=== PATIENT | female | born 1980 | race Caucasian/White ===

== ENCOUNTER 2018-08-08 18:50 | Inpatient (IN) | payer OTHER, SELFPAY ==
[2018-08-08] VITALS (10 sets, daily range): BP systolic 107–139; BP diastolic 59–77; PULSE 56–71; RESP 10–18; TEMP 36.2–37.1; O2SAT 96–99; BMI 25.2
[2018-08-08] MEDS: Lactated Ringers 1,000 ML 100 ML IV ×2 (17:54→22:10)
--- OUTSIDE RECORDS SUMMARY | 2018-08-08 18:12 | XMS RPT_ITS ---
:1980 Author Organization OHIP Care Team Providers Name Role Phone SUJATHA TELLEZ Attending Unavailable ROSALINDA SUJATHA Nori Attending Unavailable ROSALINDA, SUJATHA L Referring Unavailable LEEANNA SMALL A Attending Unavailable ROSALINDA, SUJATHA L Referring Unavailable ROSALINDA, SUJATHA L Attending Unavailable ROSALINDA, SUJATHA L Referring Unavailable LISA DAVIS Attending Unavailable ROSALINDA, SUJATHA L Referring Unavailable ROSALINDA, SUJATHA L Attending Unavailable ROSALINDA, SUJATHA L Referring Unavailable ANTONY SMALLZIZ A Attending Unavailable ROSALINDA, SUJATHA L Referring Unavailable ROSALINDA, SUJATHA L Attending Unavailable ROSALINDA, SUJATHA L Referring Unavailable ROSALINDA, SUJATHA L Attending Unavailable ROSALINDA, SUJATHA L Referring Unavailable ROSALINDA, SUJATHA L Referring Unavailable KSENIA SPARKS (VIBRATING SCREEN OPERATOR) Referring Unavailable ROSALINDA, SUJATHA L Attending Unavailable ROSALINDA, SUJATHA L Referring Unavailable GEOVANNY, LEEANNA A Attending Unavailable ROSALINDA, SUJATHA L Referring Unavailable ROSALINDA, SUJATHA L Attending Unavailable ROSALINDA, SUJATHA L Referring Unavailable ROSALINDA, SUJATHA L Attending Unavailable ROSALINDA, SUJATHA L Referring Unavailable ROSALINDA, SUJATHA L Referring Unavailable ROSALINDA, SUJATHA L Attending Unavailable ROSALINDA, SUJATHA L Referring Unavailable LEEANNA SMALL Attending Unavailable ROSALINDA, SUJATHA L Referring Unavailable ROSALINDA, SUJATHA L Attending Unavailable ROSALINDA, SUJATHA L Referring Unavailable ROSALINDA, SUJATHA L Attending Unavailable ROSALINDA, SUJATHA L Referring Unavailable ROSALINDA, SUJATHA L Attending Unavailable ROSALINDA, SUJATHA L Referring Unavailable ROSALINDA, SUJATHA L Attending Unavailable ROSALINDA, SUJATHA L Referring Unavailable Canelo, Sultana Attending Unavailable Wisfernando, Sultana Referring Unavailable Love, Hoda Primary Care Unavailable Rosalinda, Sujatha Admitting Unavailable Rosalinda, Sujatha Attending Unavailable Love, Hoda Primary Care Unavailable Love, Hoda Primary Care Unavailable Thelma Thomas Attending Unavailable PROBLEMS PROBLEMS DATE TYPE CONDITION / CODE ATTENDING STATUS SOURCE 07/05/2018 Active 33 weeks gestation NA Active [facility] [place] Z3A.33(ICD-10) Repository 07/05/2018 Active Supervision of NA Active [facility] elderly [facility] [place] multigravida, Repository third trimester / O09.523(ICD-10) 07/05/2018 Active Supervision of NA Active [facility] high risk [facility] [place] , Repository unspecified, third trimester / O09.93(ICD-10) 05/29/2018 Active Abnormal glucose NA Active [facility] [place] [facility] O99.810(ICD-10) 05/19/2018 Active 27 weeks gestation NA Active [facility] [place] Z3A.27(ICD-10) Repository 01/30/2018 Active Unknown / ROSALINDA [facility] UNK(Unknown) SUJATHA L [facility] [place] Repository PROCEDURES PROCEDURES No Procedure Records FoundRESULTS RESULTS CBC W/DIFF, AUTOMATED Collected: 08/08/2018 Status: F Source: [place] 3:45 PM [facility] REPOSITORY TYPE CODE TESTS RESULT OUT OF RANGE REFERENCE UNITS LAB L100.1000 Normal 4.4-11.0 K/mm3 WBC 8.1 LAB L100.1200 Low 4.2-5.4 M/mm3 RBC 3.79 LAB L100.1300 Normal 12.0-15.0 g/dl HGB 12.2 LAB L100.1400 Low 37-47 % HCT 36.6 LAB L100.1500 Normal 81-99 fL MCV 96.6 LAB L100.1600 High 27.0-32.0 pg MCH 32.2 LAB L100.1700 Normal 32-36 g/gl MCHC 33.3 LAB L100.1810 High 11.6-14.6 % RDW 16.3 CV LAB L100.1820 High 35.1-43.9 fl RDW 55.0 SD LAB L100.1900 Normal 150-450 K/mm3 PLT 219 LAB L100.2000 Normal 6.2-12.0 fl MPV 11.5 LAB L100.2100 Normal 47-70 % NEUT% 59.7 LAB L100.2200 Normal 19-41 % LY% 30.1 LAB L100.2300 Normal 0-10 % MONO% 8.7 LAB L100.2400 Normal 0-5 % EO% 0.6 LAB L100.2500 Normal 0-1 % BASO% 0.4 LAB L100.2550 Normal 0.0-0.9 % IM 0.500 GRAN % Result Comment: IG% - Immature Granulocytes (promyelocytes, myelocytes and metamyelocytes) > 1% indicates that a LEFT SHIFT is Present. LAB L100.2620 Normal 2.0-7.7 X10 3/uL Absolute Neut 4.8 LAB L100.2720 Normal 0.83-4.51 X10 3/ul Absolute Lymph 2.42 Performed By: #### L100.0100, B101.7450 #### [facility] [address] [place], [address] TYPE AND SCREEN Collected: 08/08/2018 Status: F Source: [place] 3:45 PM [facility] REPOSITORY Order Comment: Reason for Type AND Screen/Red Cells: SURGERY TYPE CODE TESTS RESULT OUT OF RANGE REFERENCE UNITS LAB B10.0800 Normal BLOOD O TYPE GEL POSITIVE LAB B100.4000 Normal Antibody NEGATIVE Screen Performed By: #### L100.0100, B101.7450 #### [facility] [address] [place], [place], [id number] HISTORY PHYSICAL Observed: 08/08/2018 Status: COMPLETED Source: [place] 1:50 PM [facility] REPOSITORY HNO ID: [id number]: Sujatha Bermeo: (none)Author Type: PhysicianType: HANDPFiled: 08/08/2018 2:15 PMNote Text:Pre-Op History and PhysicalHPI: The patient is a 37 year old female presenting for pre-operativevisit.She is scheduled for , on 08/10/18. Procedure discussed alongwith risks, benefits and complications. Otheralternatives discussed for management. Consent form signed? Yes.PAST MEDICAL HISTORYDiagnosis Date- abnormal pap 2008 Repeat normal- Abnormal Pap smear of cervix- anxiety- Genetic testing 05/19/2015 Neg screen for CF, fragile X adn SMAPAST SURGICAL HISTORYProcedure Laterality Date- ANESTH, SECTION- DELIVERY ONLY 08/14/2011 , low transverse, note from Dr. Lima reviewed, confirms LTCS- EGD N/A 10/27/2016 [facility]- [place]OSCOPY ([place])- PAST SURGICAL HISTORY OF miscarriages x 2- REMOVAL ADENOIDS,PRIMARY,<12 Y/O Adenoidectomy- REMOVAL OF TONSILS,<12 Y/O 1991 TonsillectomyCurrent Outpatient Prescriptions:ferrous sulfate (IRON ORAL) Take by mouth. Disp: Rfl: multivitamin (CLASSIC ) 28 mg iron- 800 mcg tab(s) Take 1tablet by mouth. Disp: Rfl:aspirin 81 mg chewable tablet Take 81 mg by mouth once daily. 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[employer]*Social History Main Topics Smoking status: Never Smoker Smokeless tobacco: Never Used Alcohol use: No Drug use: No Sexual activity: Yes Partners with: Male control/protection: Condom Comment: singleFAMILY HISTORY:FAMILY HISTORYProblem Relation Age of Onset- Thyroid Mother- other (kidney cancer) Father- Heart Maternal Grandmother- Asthma Maternal Grandmother- Heart Maternal Grandfather- Diabetes Paternal Grandfather- Breast Cancer Paternal Aunt- Thyroid Sister- Diabetes Sister- Thyroid Sister- Thyroid Maternal Aunt- Thyroid Maternal Aunt- Thyroid Maternal Aunt- Thyroid Maternal Aunt- Thyroid Maternal AuntREVIEW OF SYMPTOMS:GENERAL: denies fevers or chillsENDOCRINOLOGY: has not been on steroidsCardiology : denies palpitations or chest painRespiratory: denies SOB or coughHematology: denies history of prolonged bleeding or easy bruising or VTEAllergy: Denies history of personal or family history of allergy toanesthesiaPHYSICAL EXAMINATION:VITALS: Last menstrual period 11/10/2017.GENERAL: The patient is well nourished, well hydrated in no acutedistress. , The patient is oriented to time, place, and person.NECK: Supple. No lynphadenopathy, normal thyroid, no thyromegaly.LUNGS: Clear to auscultation bilaterally. no wheezes, rhonchi or ralesHEART: Regular rate and rhythm, Normal heart sounds and No murmurs orgallopsabd- soft, nontender, gravidIMPRESSION: 39 week ,previous c/sadvanced maternal age multigravidaPLAN: The risks/benefits/alternatives and personal involved for theplanned were reviewed with the patient. Her questions wereanswered to her satisfaction and she desires to proceed. Consent wassigned. I reviewed with her postop instructions and expectations.I have reviewed and updated past medical and surgical history, medicationsand allergiesSujatha Tellez M.D. PROGRESS Observed: 07/19/2018 Status: COMPLETED Source: [place] 9:52 AM [facility] REPOSITORY [facility] ID: [id number]: Leeanna Llaneservice: (none)Author Type: PhysicianType: Progress NotesFiled: 07/19/2018 10:01 AMNote Text:A ha intrauterine pregnancyThe size is LGA > 97 th%. The AC measures > 95 th. She had anegative 3 hour OGTTEstimated Date of Delivery: 08/17/18EGA = [id number] anatomy appears normal in the areas visualized.The amniotic fluid volume is normal.There is no evidence of effusions and/ or hydrops.The placenta is fundalEvaluation of the cervix:Evaluation of the cervix has been performed by transvaginal ultrasoundsecondary to PTD at 29 weeks. The cervix measure 33.5 mm. No dynamicchanges have been visualized.No sludge is noted near the cervix.The previously noted cyst is still visualized without significant changein its size as compared to the last scan. It is located on the right sideof the cervix. It measures 37 mm x 21 mm x 33 mm.RECOMMENDATIONS:- Self-assessment of kick counts- Follow up ultrasound as clinically indicated PROGRESS Observed: 07/18/2018 Status: COMPLETED Source: [place] 4:36 PM [facility] REPOSITORY HNO ID: [id number]: Myranda Hinton MaService: (none)Author Type: (none)Type: Progress NotesFiled: 07/20/2018 9:55 AMNote Text:37 year old female here for INACTIVATED INFLUENZA VACCINE.6811-3241 SeasonPatient is identified by name and date of : Yes [] CONTRAINDICATIONS colorenhanced sectionAge less than 6 months? NoAllergy to eggs, chicken, chicken feathers, or chicken dander? NoAllergy to thimerosal (a preservative) or formaldehyde, gelatin? NoHistory of severe reaction to any vaccine component or a previous dose ofinfluenza vaccination? NoHistory of Guillain-[place] Syndrome within 6 weeks after a previousinfluenza vaccine? NoPatient is not moderately or severely ill? NoCurrent temperature greater or equal to 100.4F? NoHistory of Bone Marrow Transplant prior 6 months or solid organ transplantin the past 3 months ? NoHistory of fainting after a prior injection or medical procedure? No-? If patient has fainted in the past, the CDC recommends sitting or lyingdown for 15 minutes after the vaccination. [] VERIFICATIONcolor enhanced sectionWas the answer Yes for any of the above contraindications? Nocontraindications present. Acceptable to proceed with vaccine.Patient/guardian agrees the above answers are true to the best of theirknowledge? YesFlu vaccine information sheet given? YesSee immunization activity in [facility] for details of immunizationsadminstered today.Patient age: [age] year old For The 0438-6622 Flu Season6-35 months old: Fluzone 0.25 ml - IM (Preservative Free)3 years of age: Fluzone 0.5 ml - IM (Preservative Free)3 years and older: Fluzone 0.5 ml- IM-(with Preservatives)65+ years old:2-49 years old Fluzone High-Dose 0.5 ml - IM (Preservative Free)FLUMIST- intranasalREMEMBER: If patient is less than 9 years of age and this is the firstvaccine of Influenza to be received in any flu season, they should receivea second dose in one months time. GC/CHLAMYDIA AMPLIF Collected: 07/18/2018 Status: F Source: [place] 4:30 PM [facility] REPOSITORY TYPE CODE TESTS RESULT OUT OF REFERENCE UNITS RANGE LAB GCCTSR GC/Chlam Amp Urine Source LAB GCAMPL GC Amplification Negative for Neisseria gonorrhoeae by amplification. LAB CLAMPL Chlamydia Amplif Negative for Chlamydia trachomatis by amplification. Result Comment: For screening asymptomatic women, a vaginal swab specimen (APTIMA vaginal swab 797014) is optimal. Ur ine specimens have reduced sensitivity for Chlamydia trachomatis or Neisseria gonorrhoeae infection in female patients without symptoms. This test was developed and its performance characteristics determined by [facility] Pathology and Laboratory Medicine [place] ([facility]). It has not been cleared or approved by the FDA. -[facility] is regulated under CLIA as qualified to perform high-complexity testing. This test is used for clinical purposes. It should not be regarded as inv estigational or for research. Performed By: #### GCCT #### [facility] [address] [place], [place] [address] GROUP B STREP PCR Collected: 07/11/2018 Status: F Source: [place] 5:25 PM [facility] REPOSITORY TYPE CODE TESTS RESULT OUT OF REFERENCE UNITS RANGE LAB GBPCRT Negative for GROUP B Group B STREP PCR Streptococcus by PCR. Performed By: #### GBPCR #### [facility] [address] [place], [place] [address] PROGRESS Observed: 07/11/2018 Status: COMPLETED Source: [place] 4:41 PM [facility] REPOSITORY HNO ID: [id number]: Mis Hornerervice: (none)Author Type: (none)Type: Progress NotesFiled: 07/11/2018 5:26 PMNote Text:Patient identified by name and date of .Nam Zuniga presents today for a vaccination of Tdap.Patient denies an allergy to latex: yesPatient denies a severe (life-threatening) allergy to a previous dose ofTdap, DTP, DTaP, DT or Td vaccine. YesPatient denies history of epilepsy or neurological problems: YesPatient is afebrile and denies being moderately or severely ill: YesPatient denies history of Guillain-[place] Syndrome (a severe paralyticillness): YesTdap Adacel injection was given without incident.See immunizations for details of immunizations administered today.VIS sheet provided: YesProviSen was present in office at time of injection.Mis Viramontes Ma CBC AND DIFFERENTIAL Collected: 07/05/2018 Status: F Source: [place] 4:47 PM [facility] REPOSITORY TYPE CODE TESTS RESULT OUT OF REFERENCE UNITS RANGE LAB WBC 3.70-11.00 k/uL WBC 9.43 LAB RBC Low 3.90-5.20 m/uL RBC 3.05 LAB HGB Low 11.5-15.5 g/dL Hemoglobin 9.4 LAB HCT Low 36.0-46.0 % Hematocrit 29.4 LAB MCV 80.0-100.0 fL MCV 96.4 LAB MCH 26.0-34.0 pG MCH 30.8 LAB MCHC 30.5-36.0 g/dL MCHC 32.0 LAB RDWCV 11.5-15.0 % RDW-CV 12.2 LAB PLTCT 150-400 k/uL Platelet 306 Count LAB MPV 9.0-12.7 fL MPV 11.2 LAB ANEUT % Neut% 58.4 LAB AANEUT 1.45-7.50 k/uL Abs Neut 5.50 LAB ALYMP % Lymph% 32.0 LAB AALYMP 1.00-4.00 k/uL Abs Lymph 3.02 LAB AMONO % Labette% 8.5 LAB AAMONO <0.87 k/uL Abs Labette 0.80 LAB AEOS % Eosin% 0.6 LAB AAEOS <0.46 k/uL Abs Eosin 0.06 LAB ABASO % Baso% 0.5 LAB AABASO <0.11 k/uL Abs Baso 0.05 LAB AUNRBC 0 /100 WBC NRBCs 0.0 LAB ABNRBC <0.01 k/uL Absolute nRBC <0.01 LAB DTYP DTYPE Auto Diff Performed By: #### CBCDIF #### [facility] [address] [place], [place] [address] PROGRESS Observed: 05/31/2018 Status: COMPLETED Source: [place] 11:11 AM [facility] REPOSITORY HNO ID: [id number]: Leeanna Amor: (none)Author Type: PhysicianType: Progress NotesFiled: 05/31/2018 11:21 AMNote Text:A ha intrauterine pregnancyThe size is AGAEstimated Date of Delivery: 08/17/18EGA = 56v3kFsf anatomy appears normal in the areas visualized.The amniotic fluid volume is normal.Evaluation of the cervix:Evaluation of the cervix has been performed by transvaginal ultrasoundsecondary to PTD at 29 weeks. The cervix measure 47 mm. No dynamic changeshave been visualized. No sludge is noted near the cervixThere is no evidence of effusions and/ or hydrops.The placenta is fundal.Multiple cystic structures are noted at the cervix. There is nosignificant change in the cyst sizeRECOMMENDATIONS:- Self-assessment of kick counts- Follow up ultrasound as clinically indicated- On 17 P CNCO Observed: 05/31/2018 Status: COMPLETED Source: [place] 12:00 AM [facility] REPOSITORY Letter Leticia Tellez M.D.[facility] [address] [place], [place] [address]Ljaiy: [phone] Zuniga[address] [facility] [address]UTC#: [id number] Bobbie,This letter is to confirm with you the dates and times of your upcomingsurgery:Surgery at [facility] is scheduled on 08/10/18 at 12:00pmPre-Op at Dr. Tellez's Office is on 08/08/18 at 1:50pmPre-Admission Testing at [facility] is on 08/08/18 at 3:00pm *An Arrival Time for Date of Surgery will be given at this appointmentPost-Op at Dr. Tellez's Office is on 08/18/18 at 11:10amIn addition, we will do a precertification approximately 1 week prior to yoursurgery. This means we will give your insurance company the medicalinformation they need to make a predetermination. This is not a guarantee ofpayment and you will need to call your insurance company to verify benefitsand coverage. If you are self-pay and/or receive [facility] FinancialAssistance, and are having surgery at [facility], please call them [phone] to make financial arrangements. We will only call you if thereis a problem. If you have any questions, please feel free to call us at thephone number above.We appreciate your confidence in choosing the [facility] for your medical care and we look forward to seeing youat your next appointment.Thank you,[facility] [place] 100G, 3HR GEST. Collected: 05/29/2018 Status: F Source: [place] OGTT 7:36 AM [facility] REPOSITORY TYPE CODE TESTS RESULT OUT OF REFERENCE UNITS RANGE LAB GTG0 74-94 mg/dL Glucose 77 GST,Fasting Result Comment: [place] [employer] of [employer]st[employer] and Gynecologists ([place]oustan) guidelines state gestational diabetes mellitus is present when 2 or more of the plasma glucose concentrations meet or exceed the following levels: fastin mg/dl, 1 hr: 180 mg/dl, 2 hr: 155 mg/dl, and 3 hr: 140 mg/dl. LAB GTG1 74-179 mg/dL Glucose 122 GST, 1 Hr Result Comment: [place] [employer]ians and Gynecologists ([place]oustan) guidelines state gestational diabetes mellitus is present when 2 or more of the plasma glucose concentrations meet or exceed the following levels: fastin mg/dl, 1 hr: 180 mg/dl, 2 hr: 155 mg/dl, and 3 hr: 140 mg/dl. LAB GTG2 74-154 mg/dL Glucose 121 GST, 2 Hr Result Comment: [place] [employer]ians and [employer]necologists ([place]ou[place]) guidelines state gestational diabetes mellitus is present when 2 or more of the plasma glucose concentrations meet or exceed the following levels: fastin mg/dl, 1 hr: 180 mg/dl, 2 hr: 155 mg/dl, and 3 hr: 140 mg/dl. LAB GTG3 74-139 mg/dL Glucose 120 GST, 3 Hr Result Comment: [place] [employer]ians and Gynecologists ([place]oustan) guidelines state gestational diabetes mellitus is present when 2 or more of the plasma glucose concentrations meet or exceed the following levels: fastin mg/dl, 1 hr: 180 mg/dl, 2 hr: 155 mg/dl, and 3 hr: 140 mg/dl. Performed By: #### GTGST3 #### [facility] [address] [place], [place] [address] CBC AND DIFFERENTIAL Collected: 05/19/2018 Status: F Source: [place] 12:45 PM [facility] REPOSITORY TYPE CODE TESTS RESULT OUT OF REFERENCE UNITS RANGE LAB WBC High 3.70-11.00 k/uL WBC 11.26 LAB RBC Low 3.90-5.20 m/uL RBC 3.14 LAB HGB Low 11.5-15.5 g/dL Hemoglobin 10.3 LAB HCT Low 36.0-46.0 % Hematocrit 31.8 LAB MCV High 80.0-100.0 fL MCV 101.3 LAB MCH 26.0-34.0 pG MCH 32.8 LAB MCHC 30.5-36.0 g/dL MCHC 32.4 LAB RDWCV 11.5-15.0 % RDW-CV 12.1 LAB PLTCT 150-400 k/uL Platelet 264 Count LAB MPV 9.0-12.7 fL MPV 11.2 LAB ANEUT % Neut% 74.3 LAB AANEUT High 1.45-7.50 k/uL Abs Neut 8.36 LAB ALYMP % Lymph% 18.9 LAB AALYMP 1.00-4.00 k/uL Abs Lymph 2.13 LAB AMONO % Labette% 6.0 LAB AAMONO <0.87 k/uL Abs Labette 0.68 LAB AEOS % Eosin% 0.5 LAB AAEOS <0.46 k/uL Abs Eosin 0.06 LAB ABASO % Baso% 0.3 LAB AABASO <0.11 k/uL Abs Baso 0.03 LAB AUNRBC 0 /100 WBC NRBCs 0.0 LAB ABNRBC <0.01 k/uL Absolute nRBC <0.01 LAB DTYP DTYPE Auto Diff Performed By: #### CBCDIF #### [facility] [address] [place], [place] [address] 50G, 1HR GEST. Collected: 05/19/2018 Status: F Source: [place] GSCRN 12:45 PM [facility] REPOSITORY TYPE CODE TESTS RESULT OUT OF REFERENCE UNITS RANGE LAB GLUP High 74-134 mg/dL Glucose 161 Screen, Preg Result Comment: [place] [employer]stetricians and Gynecologists ([place]oustan) guidelines state a gestation al diabetes mellitus positive screen is made, in women not previously diagnosed with overt diabetes, when the 1 hr plasma glucose level is equal to or above 140 mg/dL. The [facility] Package Delivery Room Service Runner and [facility][note 3] recommends a 135 mg/dL cutoff. Performed By: #### GLTGST #### [facility] [address] [place], [place] [address] PROGRESS Observed: 05/08/2018 Status: COMPLETED Source: [place] 9:19 AM [facility] REPOSITORY [place] ID: [id number]: Leeanna Amor: (none)Author Type: PhysicianType: Progress NotesFiled: 05/08/2018 9:21 AMNote Text:A ha intrauterine pregnancyThe size is AGAEstimated Date of Delivery: 08/17/18EGA = 64y4cWow anatomy appears normal in the areas visualized.The amniotic fluid volume is normal.There is no evidence of effusions and/ or hydrops.The placenta is fundalNormal cervical lengthMultiple cystic structures are noted at the cervixRECOMMENDATIONS:- Self-assessment of kick counts- Follow up ultrasound when I am at [place] to reevaluate the cysts nearthe cervix PROGRESS Observed: 03/31/2018 Status: COMPLETED Source: [place] 9:05 AM [facility] REPOSITORY [place] ID: [id number]: Lisa Stanford: (none)Author Type: PhysicianType: Progress NotesFiled: 03/31/2018 9:06 AMNote Text:Please see ultrasound report for details of this visit.Lisa Davis M.D. PROGRESS Observed: 02/27/2018 Status: COMPLETED Source: [place] 2:57 PM [facility] REPOSITORY [place] ID: [id number]: Leeanna Small AService: (none)Author Type: PhysicianType: Progress NotesFiled: 02/27/2018 3:01 PMNote Text:A ha? fetus in utero with symmetric measurementsAdequate growth (AGA).Estimated Date of Delivery: 08/17/18EGA = 30y1rXfn anatomy appears normal. There are no evident malformations and/or effusions.The amniotic fluid volume is within normal limits.Evaluation of the cervix:Evaluation of the cervix has been performed by transvaginal ultrasoundsecondary to PTD at 29 weeks.The cervix measure 42 mm. No dynamic changes have been visualized.No sludge is noted near the cervixdetecting malformations and chromosomal anomalies has beenaddressed.RECOMMENDATIONS:- Follow up ultrasound after 2 weeks for cervical length. If < 25 mm,cerclage is indicated- 17 P therapy from 16 to 36 weeks PROGRESS Observed: 02/01/2018 Status: COMPLETED Source: [place] 10:20 PM [facility] REPOSITORY [place] ID: [id number]: Sujatha TellezService: (none)Author Type: PhysicianType: Progress NotesFiled: 02/01/2018 10:20 PMNote Text: lab reviewed, please place result in chart.Sujatha Tellez MD` TOXICOLOGY SCREEN,UR Collected: 01/31/2018 Status: F Source: [place] 8:30 AM [facility] REPOSITORY TYPE CODE TESTS RESULT OUT OF REFERENCE UNITS RANGE LAB UPCP2 Negative Negative Phencyclidin e, Urine Result Comment: Cutoff threshold at 25 ng/mL. LAB UBENZ2 Negative Benzodiazepines, Ur Negative Result Comment: Cutoff threshold at 200 ng/mL. LAB UCOC2 Negative Cocaine, Negative Urine Result Comment: Cutoff threshold at 300 ng/mL. LAB UAMPH2 Negative Amphetamines, Urine Negative Result Comment: Cutoff threshold at 1000 ng/mL. LAB UTHC2 Negative Cannabinoids, Urine Negative Result Comment: Cutoff threshold at 50 ng/mL. LAB UOPI2 Negative Opiates, Negative Urine Result Comment: Cutoff threshold at 300 ng/mL. LAB UBARB2 Negative Barbiturates, Urine Negative Result Comment: Cutoff threshold at 200 ng/mL. LAB UETOH <11 mg/dL Ethanol, <11 Urine LAB UOXYC Negative Oxycodone, Negative Urine Result Comment: Cutoff threshold at 100 ng/mL. Comment: Immunoassay screen only. Cross reactivity with other substances can occur with immunoassay screening. Detection of any drug(s) in this urine toxicology panel is presumptive only. These tests are for med ical purposes only and should not be used for compliance monitoring, legal, or forensic use. In clinical settings, confirmatory testing is at the practitioner's discretion [1]. If clinically indicated, confirmation by high specificity, quantitative methodology may be requested on the same speci men through Client Services ([phone]) if contacted within 48 hours of initial testing. [1]Substance Abuse and Mental Health Services Administration (2012). Clinical Drug Testing in Primary Care Technical Assistance Publication Series 32. Department of Health and Human Services, [place], p.10. These tests were developed and their performance characteristics determined by [facility] [place] ( [facility]). They have not been cleared or a pproved by the FDA. [facility] is regulated under CLIA as qualified to perform high complexity testing. These tests are used for clinical purposes. They should not be regarded as investigational or for research. Performed By: #### UTOX2 #### [facility] [address], [place] [address] Observed: 01/31/2018 Status: F Source: [place] URINE CULTURE 8:30 AM [facility] REPOSITORY Culture Result - <10,000 CFU/ml Normal urogenital eric Performed By: #### URCUL ####[facility] [address], [place] [phone] PROGRESS Observed: 01/30/2018 Status: COMPLETED Source: [place] 4:27 PM [facility] REPOSITORY HNO ID: [id number]: Qi Osborne RNService: (none)Author Type: (none)Type: Progress NotesFiled: 01/30/2018 4:28 PMNote Text:#: 1, Date: None, Sex: None, Weight: None, GA: None, Delivery: None,Apgar1: None, Apgar5: None, Living: None, Comments: SystemGenerated. Please review and update details.#: 2, Date: 08/14/11, Sex: Male, Weight: 3 lb 6 oz (1.531 kg), GA: 29w0d,Delivery: SECTION, Apgar1: None, Apgar5: None, Living: Living, Comments: Listeria, delivered at [facility]#: 3, Date: 2013, Sex: None, Weight: None, GA: 5w0d, Delivery: SPONTANEOUSABORTION, Apgar1: None, Apgar5: None, Living: None, Comments: No DANDC#: 4, Date: 2014, Sex: None, Weight: None, GA: 6w0d, Delivery: SPONTANEOUSABORTION, Apgar1: None, Apgar5: None, Living: None, Comments: No DANDC#: 5, Date: 2015, Sex: None, Weight: None, GA: 5w0d, Delivery: SPONTANEOUSABORTION, Apgar1: None, Apgar5: None, Living: None, Comments: no DANDC#: 6, Date: 2016, Sex: None, Weight: None, GA: 7w0d, Delivery: None,Apgar1: None, Apgar5: None, Living: None, Comments: DANDC#: 7, Date: None, Sex: None, Weight: None, GA: None, Delivery: None,Apgar1: None, Apgar5: None, Living: None, Comments: None PROGRESS Observed: 01/30/2018 Status: COMPLETED Source: [place] 1:31 PM [facility] REPOSITORY HNO ID: [id number]: Sujatha Bermeo: (none)Author Type: PhysicianType: Progress NotesFiled: 02/07/2018 12:38 PMNote Text:INITIAL OB ASSESSMENTOB Provider: MARCO BeaversI: Nam Zuniga is a 37 year old female here to establishObstetrical Care. No LMP recorded. from OB Dating Form. Cycle length:irreg daysComplaints: NonePregnancy was planned.Obstetric History T0 L1 SAB0 TAB0 Ectopic0 Multiple0 Live Mulooi8Mggvk : yes x 1History of 4th degree laceration: NoPatient's Risk Screening for delivery:History of abnormal pap: NoPrior treatment for cervical dysplasia: none.History of STDs: NoneTobacco use: NoCaffeine use: NoDrug use: NoAlcohol use: NoMultivitamin with Folic acid: YesOccupation: teacherJewish or heritage: NoWould refuse blood transfusion if medically necessary: NoNo weight on file for this encounter. Patient BMI over 30? NoMarital Status:MarriedPartner: Name: Floresita MEDICAL HISTORYDiagnosis Date- abnormal pap 2008 Repeat normal- Abnormal Pap smear of cervixPAST SURGICAL HISTORYProcedure Laterality Date- ANESTH, SECTION- DELIVERY ONLY 08/14/2011 , low transverse- EGD N/A 10/27/2016 MAC- PAST SURGICAL HISTORY OF miscarriages x 2- REMOVAL ADENOIDS,PRIMARY,<12 Y/O Adenoidectomy- REMOVAL OF TONSILS,<12 Y/O 1992 TonsillectomyCurrent Outpatient Prescriptions on File Prior to Visit:FOLBIC 2.5-25-2 mg tabmedroxyPROGESTERone (PROVERA, CYCRIN) 10 mg tabletaspirin 81 mg chewable tablet Take 81 mg by mouth once daily.SACCHAROMYCES BOULARDII (PROBIOTIC, S.BOULARDII, ORAL) Take by mouth oncedaily. multivitamin (CLASSIC ) 28 mg iron- 800 mcg tab(s) Take 1tablet by mouth.No current facility-administered medications on file prior to visit.Review of Systems:GENERAL: Negative for: Fever or ChillsHEENT: Negative for: Headache, Impaired Vision, Ringing in Ears,NosebleedsNECK: Negative for: Swelling, Pain, StiffnessRESPIRATORY: Negative for: Cough, Shortness of breath, WheezingGASTROINTESTINAL: some nauseaMUSCULOSKELETAL: Negative for: Muscle or joint pain, stiffness, JointswellingNEUROLOGIC/PSYCHIATRIC: Negative for: Weakness, Paralysis, Numbness,Tingling, Tremor, Anxiety, Depression, Memory lossSKIN: Negative for: Rash, ItchingGENITOURINARY: Negative for: vaginal itching, vaginal discharge, hematuriaor dysuriaPHYSICAL EXAM: There were no vitals taken for this visit.GENERAL: pleasant female in no apparent distressDERMATOLOGY: Normal, without lesions, non-icteric and non-hirsuteNECK: Supple, full range of motion, no adenopathy and thyroid normalCHEST: Normal inspiratory effortABDOMEN: soft, non-tender and no massesNEURO: alert and oriented x3,exam grossly non-focalPELVIS: External genitalia normal without lesions. Perineal body intact.No vaginal or cervical lesions. Cervix closed. Uterus 12 week size. Noadnexal masses or tenderness.Clinical Pelvimetry: Pelvimetry clinically assessed as adequateLimited OB ultrasound exam: single intrauterine , positive fetalcardiac activity and crown-rump length CW EDC by LMPASSESSMENT: 37 year old at 11w 4d Weeks wks gestational agePLAN:1) Patient oriented to practice.Discussed nutrition, folic acid supplementation, dietary guidelines,exercise, smoking, alcohol, caffeine, and drug use.Had CF screen (and SMA and fragile X, all neg)Had NIPT and negatvie screen. Records scanned2) considering c/s vs TOLAC, d/w her this briefly3) f/u US in 2-4 weeks or prn bleedingrecords reviewed. Was on progesterone but stopped at 9 weeksFollow up in 4 weeks or sooner prn.Sujatha Tellez MD CNNURSE Observed: 01/30/2018 Status: COMPLETED Source: [place] 1:30 PM [facility] REPOSITORY Nurse Visit (WOOB) NAM ZUNIGA ([id number]) 1980 FDate Time Provider Department01/30/18 1:30 PM NURSE PNOB [facility] W[facility] WOOB During your visit today, we recorded the following information about you: Last Period 11/10/17Qi Osborne RN 01/30/2018 2:23 PM SignedSEQUENTIAL SCREENINGSThe [facility] offers [facility] screenings for women who are interestedin screenings for chromosomal abnormalities and certain defects during apregnancy. The sequential screen combines ultrasound and blood tests todetermine the risk of chromosomal abnormalities, including Down's Syndrome(Trisomy 21) and Trisomy 18, as well as open neural tube defects includingspina bifida. Ultrasound examination is performed between 11 weeks and 13 weeksgestational age. Blood tests are drawn after the ultrasound and again later inthe between 15 and 21 weeks gestational age. Please let yourphysician know if you are interested in this testing. It will require anappointment with our field operations technician. This is not an ultrasound performedby a physician in our office during a routine visit.SIGNS AND SYMPTOMS OF LABOR1. Contractions every 10 minutes or more often2. Clear, pink, or brownish fluid (water) leaking from vagina3. Feeling that baby is pushing down, pressure4. Low, dull backache5. Cramps that feel like a period6. Cramps with or without diarrheaIf you notice any of the above symptoms, contact our office at [phone] andask to speak with a nurse.After hours, you can call doctors registry at [phone] OR call [facility] at [phone] and ask to have the doctor train control technician paged.If you consider this an emergency, dial 9-1-1 or go to your nearest emergencydepartment.Cord- Blood BankingUp until recently, the umbilical cord--along with the blood that remained in itafter a baby was born and the cord cut--was simply discarded by the hospital.Then, in the late , researchers discovered that cord blood possessedunusual properties that made it useful in the treatment of patients with somecancers and other illnesses. While the actual process of collecting cord bloodis straightforward, many parents are not even aware that this option nowexists, much less familiar with all the issues involved.The case for saving your baby's cord bloodThe blood running back and forth between your baby and the placenta is full ofimmature cells called stem cells. Unlike embryonic stem cells, which have theability to develop into any type of body cell, cord-blood stem cells alreadyare locked into a certain, vital function: making all the different componentsof the blood, such as platelets, white blood cells, and red bloodcells-serving, in effect, like bone marrow. When transfused into a patientwhose own blood cells have faulty genetic coding or have been destroyed bychemotherapy or other cancer treatments, the cord-blood cells can implantthemselves in the bone marrow and generate legions of new, healthy cells.These days, cord-blood transplants most commonly are used in cancer patientswhen a donor can't be found for a bone-marrow transplant. The treatment isparticularly effective in young patients-the [facility] Cord BloodBank reports a 70 percent success rate in children, but only 20 to 40 percentin adults. Researchers envision improving those odds and see many futureapplications as well, such as curing sickle cell disease and otherblood- related genetic illnesses. So there is a possibility that your child, orsomeone else, may need these super-healthy and versatile cells one day.The drawbacksAside from not knowing about this medical option, the main reason most peopledo not save their baby's stem cells is cost. In a private blood bank, theinitial costs run from $275 to $1,500. Most also charge a yearly storage fee of$50 to $95. The advantage of using a private bank is that your sample is savedfor only you to use.An alternative to private bankingPublic cord-blood [place] are an alternative. These cost no money to use, butyour sample is not specifically saved for you. Another person with a moreimmediate need may use it. If the time should come that you need stem cells,yours may still be available, or you may use donations from other peoplewithout charge. You also can direct your sample to go to a relative with animmediate need if the blood type matches. Anyone else needing to use stem cellsfrom a public bank who has not been a donor must pay for it, sometimes tens ofthousands of dollars.Will my family benefit from saving stem cells?Right now, situations in which stem cells would be helpful are quite rare. Asmentioned earlier, stem-cell transplants are most commonly used for raregenetic conditions and for some types of cancer, including leukemia andlymphoma.And even with these present uses, many questions remain. In cancer treatment,for example, some researchers are concerned about the wisdom of transplantingback into the child the same cells that already showed a propensity to becomemalignant. Doctors also aren't sure if the number of cells taken at the time ofbirth would be enough to treat a full-grown 16-year-old. It is also notcompletely clear how active the cells would be after years of being stored. Thetreatment is so new and rare, we just don't have the data yet to resolve theseimportant issues.What do the experts say?The [place] [employer] encourages philanthropic blood banking inpublic [place], but only for families with a current or potential need.Blood-bank proponents encourage any kind of banking, pointing out that researchis getting closer and closer to many diverse, live-saving applications.How do I decide?Each family must weigh the pros and cons for themselves. Some families say thatany cost is worth their peace of mind. Others say that in the face ofuncertainty about the effectiveness of the treatment, they will use theirresources elsewhere. Some choose the middle ground of donating publicly,knowing that their sample might benefit another family, if not themselves. Formore information, ask your doctor or nurse, and be sure to check out ourarticle on the technical aspects of cord-blood banking.Technical Aspects of Cord-Blood BankingIf you are interested in storing your baby's umbilical-cord blood because ofits possible use in emerging medical treatments, you must make arrangementswith a blood bank before your child is born. The collection procedure is quitesimple:After delivery of the baby, the umbilical cord is clamped and cut in the usualway. The blood that remains in the umbilical-cord vessels is then collected insterile containers. The blood may be removed from the cord with a large needleor allowed to flow freely, depending on the company's collection system. Thecontainers may look like large test tubes or like the plastic bags used in ablood bank. It does not cause the mother or the baby any pain to collect theblood, and no blood is taken that the baby needs at the moment.The nurse, trash collector supervisor, or physician will then label the samples, check them overwith you, and package them for a special pickup arranged with a commercialcarrier. When the blood arrives at the blood-bank facility, it is processed andthe parents are notified. It is then kept in an advanced storage system foryears.How do I know that my sample is safe?Power outages and bankruptcies potentially could threaten any organization, butso far none have been reported. It is to be hoped that the scientists in thesebanks would arrange for safe transfer to another facility if the need arose.YOU MUST MAKE ARRANGEMENTS AHEAD OF TIME!Public cord-blood [place]--DONATION:[employer] [phone] Blood [facility], [facility], private cord-blood [place]--SAVING FOR YOUR OWN USE:[employer], (I think this is the least expensive)[employer] [phone], [phone]) [facility]ANKNeFox[facility] Cord Blood [facility], [phone] 700-CORDBirth Cells, [phone]-BABYCalifornia Cryobank, [place] [facility], [phone]) CORDBLOODViacord, an Internet search may provide you with additional listings.Qi Osborne RN 01/30/2018 4:28 PM Signed#: 1, Date: None, Sex: None, Weight: None, GA: None, Delivery: None, Apgar1:None, Apgar5: None, Living: None, Comments: System Generated. Pleasereview and update details.#: 2, Date: 08/14/11, Sex: Male, Weight: 3 lb 6 oz (1.531 kg), GA: 29w0d,Delivery: SECTION, Apgar1: None, Apgar5: None, Living: Living, BirthComments: Listeria, delivered at [facility]#: 3, Date: 2011, Sex: None, Weight: None, GA: 5w0d, Delivery: SPONTANEOUSABORTION, Apgar1: None, Apgar5: None, Living: None, Comments: No DANDamp;C#: 4, Date: 2014, Sex: None, Weight: None, GA: 6w0d, Delivery: SPONTANEOUSABORTION, Apgar1: None, Apgar5: None, Living: None, Comments: No DANDamp;C#: 5, Date: 2016, Sex: None, Weight: None, GA: 5w0d, Delivery: SPONTANEOUSABORTION, Apgar1: None, Apgar5: None, Living: None, Comments: no DANDamp;C#: 6, Date: 2016, Sex: None, Weight: None, GA: 7w0d, Delivery: None, Apgar1:None, Apgar5: None, Living: None, Comments: DANDamp;C#: 7, Date: None, Sex: None, Weight: None, GA: None, Delivery: None, Apgar1:None, Apgar5: None, Living: None, Comments: NoneReferring Provider: SELF [200]Allergies As of Date: 01/30/2018(No Known Allergies)Date Reviewed: 01/30/2018Reviewed by: Qi Osborne RN - Fully AssessedReason for Visit: Care [86] Cmt: Pre-New OBPrimary Visit Diagnosis: with history of section, antepartum [O34.219] Other Visit Diagnoses:Antepartum multigravida of advanced maternal age [O09.529] Poor historian [Z78.9] Previous delivery affecting [O34.219] History of delivery, currently [O09.219] History of anxiety [Z86.59] Bleeding in early [O20.9]Order(s):ALONSO PT ED SENIOR ACCOUNTS PAYABLE CLERK [] Order #: [id number]: 1 FUTURE ALONSO PT ED SENIOR ACCOUNTS PAYABLE CLERK [] Order #: [id number]: 1 FUTURE ALONSO PT ED SENIOR ACCOUNTS PAYABLE CLERK [] Order #: [id number]. #:[id number]: 1 ALONSO PT ED SENIOR ACCOUNTS PAYABLE CLERK [] Order #: [id number]. #:[id number]: 1 CBC [SQCBC] Order #: [id number] HEP B SURF AG SCRN [SQHBSAG] Order #: [id number] RPR SCRN [SQRPR] Order #: [id number] HIV 1,2 COMBO (AG/AB) [SQHIV12] Order #: [id number] TYPE + SCREEN (EXTERNAL LAB) [[id number]] Order #: [id number] TYPE + SCREEN (EXTERNAL LAB) [[id number]] Order #: [id number] as of 01/30/2018 Sig: VITS NO.126-FERROUS * Take 1 tablet by mouth. 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 Poor historian [Z78.9] INVALID FOR* More... Previous delivery affecting *INVALID FOR* More... History of delivery, currently *INVALID FOR* More... History of anxiety [Z86.59] INVALID FOR* More... Bleeding in early [O20.9] INVALID FOR* More... Other instructions from your clinician: SEQUENTIAL SCREENINGS [facility] offers sequential screenings for women who are interested in screenings for chromosomal abnormalities and certain defects during a . The sequential screen combines ultrasound and blood tests to determine the risk of chromosomal abnormalities, including Down's Syndrome (Trisomy 21) and Trisomy 18, as well as open neural tube defects including spina bifida. Ultrasound examination is performed between 11 weeks and 13 weeks gestational age. Blood tests are drawn after the ultrasound and again later in the between 15 and 21 weeks gestational age. Please let your physician know if you are interested in this testing. It will require an appointment with our field operations technician. This is not an ultrasound performed by a physician in our office during a routine visit. SIGNS AND SYMPTOMS OF LABOR 1. Contractions every 10 minutes or more often 2. Clear, pink, or brownish fluid (water) leaking from vagina 3. Feeling that baby is pushing down, pressure 4. Low, dull backache 5. Cramps that feel like a period 6. Cramps with or without diarrhea If you notice any of the above symptoms, contact our office at [phone] and ask to speak with a nurse. After hours, you can call doctors registry at [phone] OR call [facility] at [phone] and ask to have the doctor train control technician paged. If you consider this an emergency, dial 9--1 or go to your nearest emergency department. Cord-Blood Banking Up until recently, the umbilical cord--along with the blood that remained in it after a baby was born and the cord cut--was simply discarded by the hospital. Then, in the late , researchers discovered that cord blood possessed unusual properties that made it useful in the treatment of patients with some cancers and other illnesses. While the actual process of collecting cord blood is straightforward, many parents are not even aware that this option now exists, much less familiar with all the issues involved. The case for saving your baby's cord blood The blood running back and forth between your baby and the placenta is full of immature cells called stem cells. Unlike embryonic stem cells, which have the ability to develop into any type of body cell, cord-blood stem cells already are locked into a certain, vital function: making all the different components of the blood, such as platelets, white blood cells, and red blood cells-serving, in effect, like bone marrow. When transfused into a patient whose own blood cells have faulty genetic coding or have been destroyed by chemotherapy or other cancer treatments, the cord-blood cells can implant themselves in the bone marrow and generate legions of new, healthy cells. These days, cord-blood transplants most commonly are used in cancer patients when a donor can't be found for a bone-marrow transplant. The treatment is particularly effective in young patients-the [facility] Cord Blood Bank reports a 70 percent success rate in children, but only 20 to 40 percent in adults. Researchers envision improving those odds and see many future applications as well, such as curing sickle cell disease and other blood-related genetic illnesses. So there is a possibility that your child, or someone else, may need these super-healthy and versatile cells one day. The drawbacks Aside from not knowing about this medical option, the main reason most people do not save their baby's stem cells is cost. In a private blood bank, the initial costs run from $275 to $1,500. Most also charge a yearly storage fee of $50 to $95. The advantage of using a private bank is that your sample is saved for only you to use. An alternative to private banking Public cord-blood [place] are an alternative. These cost no money to use, but your sample is not specifically saved for you. Another person with a more immediate need may use it. If the time should come that you need stem cells, yours may still be available, or you may use donations from other people without charge. You also can direct your sample to go to a relative with an immediate need if the blood type matches. Anyone else needing to use stem cells from a public bank who has not been a donor must pay for it, sometimes tens of thousands of dollars. Will my family benefit from saving stem cells? Right now, situations in which stem cells would be helpful are quite rare. As mentioned earlier, stem-cell transplants are most commonly used for rare genetic conditions and for some types of cancer, including leukemia and lymphoma. And even with these present uses, many questions remain. In cancer treatment, for example, some researchers are concerned about the wisdom of transplanting back into the child the same cells that already showed a propensity to become malignant. Doctors also aren't sure if the number of cells taken at the time of would be enough to treat a full-grown 16-year-old. It is also not completely clear how active the cells would be after years of being stored. The treatment is so new and rare, we just don't have the data yet to resolve these important issues. What do the experts say? The [place] [employer] encourages philanthropic blood banking in public [place], but only for families with a current or potential need. Blood-bank proponents encourage any kind of banking, pointing out that research is getting closer and closer to many diverse, live-saving applications. How do I decide? Each family must weigh the pros and cons for themselves. Some families say that any cost is worth their peace of mind. Others say that in the face of uncertainty about the effectiveness of the treatment, they will use their resources elsewhere. Some choose the middle ground of donating publicly, knowing that their sample might benefit another family, if not themselves. For more information, ask your doctor or nurse, and be sure to check out our article on the technical aspects of cord-blood banking. Technical Aspects of Cord-Blood Banking If you are interested in storing your baby's umbilical-cord blood because of its possible use in emerging medical treatments, you must make arrangements with a blood bank before your child is born. The collection procedure is quite simple: After delivery of the baby, the umbilical cord is clamped and cut in the usual way. The blood that remains in the umbilical-cord vessels is then collected in sterile containers. The blood may be removed from the cord with a large needle or allowed to flow freely, depending on the company's collection system. The containers may look like large test tubes or like the plastic bags used in a blood bank. It does not cause the mother or the baby any pain to collect the blood, and no blood is taken that the baby needs at the moment. The nurse, trash collector supervisor, or physician will then label the samples, check them over with you, and package them for a special pickup arranged with a commercial carrier. When the blood arrives at the blood-bank facility, it is processed and the parents are notified. It is then kept in an advanced storage system for years. How do I know that my sample is safe? Power outages and bankruptcies potentially could threaten any organization, but so far none have been reported. It is to be hoped that the scientists in these [place] would arrange for safe transfer to another facility if the need arose. YOU MUST MAKE ARRANGEMENTS AHEAD OF TIME! Public cord-blood [place]--DONATION: [employer] [phone] [facility] Placental Blood Program, [facility] Umbilical Cord Blood Bank, Private cord-blood [place]--SAVING FOR YOUR OWN USE: [employer], (I think this is the least expensive) [employer] [phone] [employer], (124) [employer] [place] [facility], [phone], [phone] [place] [facility], [facility], ([phone]) [employer], An Internet search may provide you with additional listings.Disposition: Return for New OB with Dr Tellez.Follow-up and Disposition History RecordedLetter NikiDeog Zuniga:How to activate your [facility]ial Network Account 1. Visit the Radial Network Signup page at [email or web address] 2. Identify yourself using your one-time use activation code: [email or web address] 3. Follow the on-screen prompts to choose your own secure username andpasswordThe following information will be necessary to access your account for thefirst time:Information needed for sign-up:Your custom activation code used one-time only for the initial accountset-up.Your date of birthThe last 4 digits of your social security numberWhat to do next:Fill in the requested information on the Identify Yourself Form [email or web address] , click Next.Create your login and password, choose a Radial Network ID and password that will beeasy for you to use, but impossible for anyone else to guess.Pick a security question that will assist you in the event you forget yourpassword the next time you log- on.If you have difficulty activating your account, please call our Textic at [phone] or toll free at .We hope you enjoy using [employer] Network!Kindest Regards,[facility] Network TeamEncounter Number: [id number] Status:Closed by QI OSBORNE RN on 01/30/18 12 LEAD ELECTROCARDIOGRAM Observed: 11/18/2017 Status: F Source: [place] 11:44 AM [facility] REPOSITORY [facility] [address] [place], [place] [address] Lead EKG011/16/17 2041MR#: [id number] Acct: [id number]: NAM ZUNIGA Rep #: [id number]: 1980 37 From: Brett Brown MDAttending Dr: Status: DEP EROrdering Dr: Thelma Thomas MD Date: 11/16/17Location: ED Sex: F CAdmitted:Test Reason : CPBlood Pressure : / mmHGVent. Rate : 074 BPM Atrial Rate : 074 BPMP-R Int : 132 ms QRS Dur : 070 msQT Int : 374 ms P-R-T Axes : 077 036 041 degreesQTc Int : 415 msNormal sinus rhythm with sinus arrhythmiaLow voltage QRSBorderline ECGConfirmed by BRETT BROWN MD ([id number]), publications editor LULY HENRY ([id number]) on 11/18/2017 11:44:29 AMReferred By: NELA Confirmed By:BRETT BROWN MD11/18/17 1144Date Brett Brown MDCC: Hoda Aleman DO Signed EMERGENCY DEPARTMENT Observed: 11/17/2017 Status: F Source: [place] SUMMARY 9:33 AM [facility] REPOSITORY [facility] [address] [place], [place] [address]Vazhfalki Department Ktpgovf69/24/18 2246MR#: [id number] Acct: [id number]: NAM ZUNIGA Rep #: [id number]: 1980 37 From: Thelma Thomas MDPCP: Love DO,Hoda Status: DEP ER- ER Visit SummaryDate of Service: 11/16/17Chief Complaint: Chest painHistory of Present Illness: The patient is a 37 F seen at urgent care last week for bronchitis.She was given antibiotics and steroids. Patient states she has not had any significant changein her symptoms. Tonight she developed a burning feeling in her chest. She states it does notfeel like normal reflux or panic attacks. She denies palpitations.Physical Examination: Vital signs are unremarkable.Patient is in no acute distress and is nontoxic appearing.Head and neck examination is normal.Heart is regular rate and rhythm. Palpable pulses are noted throughout.Lungs are clear with good air movement throughout. She does have reproducible tenderness alongthe right sternal border.Abdomen is soft and nontender. Bowel sounds are noted.Extremity examination is unremarkable with full range of motion.Neurologic examination reveals no focal deficits.Test Results: EKG is sinus at 74 with no sign of acute ischemia. Portable chest x-ray isnormal. CBC is normal. Chemistry studies reveal creatinine 1.10. Troponin is less than 0.02.D-dimer is less than 0.27.Emergency Department Course and Treatment: Patient was given fluids, aspirin, and Pepcid. Onrepeat evaluation she is resting comfortably. She describes a burning sensation that feelslike it is in her central airways. I advised her this time I see no sign of infiltrate.Cardiac and pulmonary exams are normal with an unremarkable workup. I do feel that she has adegree of costochondritis that she has reproducible tenderness at the right sternal border.She will be treated with a prednisone taper.Treatment Plan: []Disposition: DischargeImpression: CostochondritisThis note was generated with WebLinc dictation software. It may contain incorrect words,spelling, and punctuation that were not noted in review of the chart prior to signingED Disposition- Plan for ED Patient:Disposition: Home or Assisted LivingChief Complaint: Chest PainInstructions: ED Chest Pain Costochondritis, ED URI ViralPrescriptions:Prednisone 10 mg PO UD #33 tabletReferrals:Hoda Aleman, [Primary Care Provider] - 1 WeekWhat to do if you have ProblemsFor any increased pain, shortness of breath, bleeding, nausea or vomiting, chest pain, or anyunexpected problems, contact your Primary Care Provider. Call [facility] ([phone])or report to the closest Emergency Room.Call 911 if necessary.11/17/17 0933 <Electronically signed by Thelma Thomas MD>Date Thelma LOZAosigner Signature (If Indicated): Date CC: Hoda Aleman DO DISCHARGE INSTRUCTION Observed: 11/16/2017 Status: F Source: [place] 10:48 PM [facility] REPOSITORY [facility] Records [address] [place] [address]Yziaeialn Cxetpvuulok47/24/18 2246MR#: [id number] Acct: [id number]: NAM ZUNIGA Nori Rep #: [id number]: 1980 37 From: Thelma Thomas MDPCP: Hoda Aleman DO Status: REG ERED Disposition- Plan for ED Patient:Disposition: Home or Assisted LivingChief Complaint: Chest PainInstructions: ED URI Viral, ED Chest Pain CostochondritisPrescriptions:Prednisone 10 mg PO UD #33 tabletReferrals:Hoda Aleman DO [Primary Care Provider] - 1 WeekWhat to do if you have ProblemsFor any increased pain, shortness of breath, bleeding, nausea or vomiting, chest pain, or anyunexpected problems, contact your Primary Care Provider. Call [facility] ([phone])or report to the closest Emergency Room.Call 911 if necessary.11/16/172247 <Electronically signed by Thelma Thomas MD>Date Thelma Thomas [facility] OKLAHOMA CITYosigner Signature (If Indicated): Date CC: Hoda Aleman DO CHEST 1 VIEW Observed: 11/16/2017 Status: F Source: [place] (PORTABLE) 9:00 PM [facility] REPOSITORY [facility]IGHImaging [address] [address]Mopxs 1 View (Portable)MR#: [id number] Acct: [id number]: NAM ZUNIGA Rep #: [id number]: 1980 F 37 From: Donald Carrasco DOPCP: Hoda Aleman DO Status: REG ERStudy: Chest 1 View (Portable) Date of Exam: 11/16/17Exam# [id number] Ordering Dr: Thelma Thomas MDSTUDY: X-RAY CHESTREASON FOR EXAM: Female, 37 years old. Chest pain.TECHNIQUE: Single AP portable view of the chest.COMPARISON: 14 August 2014 FINDINGS:The lungs are clear and expanded. There is no demonstrated pleuralabnormality.Normal size heart. Normal mediastinum and kody. Normal visualizedpulmonary arteries. Normal visualized aortic arch and descending thoracicaorta.Normal visualized thoracic spine. Normal visualized ribs, clavicles, andshoulders.There is no demonstrated abnormality of the visualized soft tissuestructures of the upper abdomen. ORDER #: [id number] RAD/Chest 1 View (Portable)IMPRESSION:No evidence of acute cardiopulmonary process.Electronically Signed:Donald Carrasco DO at 21:22 ESTTel , Service support , [place]: Thelma Thomas MD; Hoda Aleman DO Disaster Recovery Specialist:Signed CBC W/DIFF, AUTOMATED Collected: 11/16/2017 Status: F Source: [place] 8:56 PM [facility] REPOSITORY TYPE CODE TESTS RESULT OUT OF RANGE REFERENCE UNITS LAB L100.1000 Normal 4.4-11.0 K/mm3 WBC 7.9 LAB L100.1200 Normal 4.2-5.4 M/mm3 RBC 4.23 LAB L100.1300 Normal 12.0-15.0 g/dl HGB 13.5 LAB L100.1400 Normal 37-47 % HCT 39.7 LAB L100.1500 Normal 81-99 fL MCV 93.9 LAB L100.1600 Normal 27.0-32.0 pg MCH 31.9 LAB L100.1700 Normal 32-36 g/gl MCHC 34.0 LAB L100.1810 Normal 11.6-14.6 % RDW 12.8 CV LAB L100.1820 Normal 35.1-43.9 fl RDW 42.9 SD LAB L100.1900 Normal 150-450 K/mm3 PLT 328 LAB L100.2000 Normal 6.2-12.0 fl MPV 10.4 LAB L100.2100 Normal 47-70 % NEUT% 48.1 LAB L100.2200 High 19-41 % LY% 41.7 LAB L100.2300 Normal 0-10 % MONO% 8.3 LAB L100.2400 Normal 0-5 % EO% 1.4 LAB L100.2500 Normal 0-1 % BASO% 0.4 LAB L100.2550 Normal 0.0-0.9 % IM 0.100 GRAN % Result Comment: IG% - Immature Granulocytes (promyelocytes, myelocytes and metamyelocytes) > 1% indicates that a LEFT SHIFT is Present. LAB L100.2620 Normal 2.0-7.7 X10 3/uL Absolute Neut 3.8 LAB L100.2720 Normal 0.83-4.51 X10 3/ul Absolute Lymph 3.30 Performed By: #### L100.0100 #### [facility] [address] [place], [place], [address] D-DIMER QUANTITATIVE Collected: 11/16/2017 Status: F Source: [place] (DVT/PE) 8:56 PM [facility] REPOSITORY TYPE CODE TESTS RESULT OUT OF RANGE REFERENCE UNITS LAB L300.8000 Low 0.27-0.49 FEU/ug/m < 0.27 D-DIMER QUANT Result Comment: NORMAL D-Dimer level (<0.50) indicates no DVT or PE. Performed By: #### L300.8000 #### [facility] [address] [place], [place], [address] BASIC METABOLIC Collected: 11/16/2017 Status: F Source: [place] PROFILE (BMP) 8:56 PM [facility] REPOSITORY Order Comment: 'TROP' Serial specimen #1, #2, #3, or #4: 1 TYPE CODE TESTS RESULT OUT OF RANGE REFERENCE UNITS LAB L501.0100 Normal 70-110 mg/dL GLU 101 LAB L501.1000 High 7-18 mg/dL BUN 19 LAB L501.1100 High 0.55-1.02 mg/dL 1.10 CREAT,SERUM Result Comment: The validity of the calculated GFR AND GFRAA in patients over 70 years has not been determined. Clinical correlation is essential. LAB L501.1110 Normal >60 mL/min EST GFR 60 Result Comment: Non- GFR Calc LAB L501.1115 Normal >60 mL/min EST GFR - AA 73 Result Comment: GFR Calc LAB L501.1255 Normal ml/min Estimated 51.27 CRCL LAB L501.1300 Normal 10-20 RATIO BUN/CRE 17.3 LAB L501.2200 Normal 8.5-10 mg/dL CA 9.0 .1 LAB L501.5300 Normal 136-14 mmol/L NA 140 5 LAB L501.5600 Normal 3.5-5. mmol/L K 3.9 1 LAB L501.5900 Normal 98-107 mmol/L CL 105 LAB L501.6100 Normal 21.0-3 mmol/L CO2 28.0 2.0 LAB L501.6200 Normal 5-15 GAP 7 Performed By: #### L500.2500, L501.4010 #### [facility] [address] [place], [place], [id number] TROPONIN-I Collected: 11/16/2017 Status: F Source: [place] 8:56 PM [facility] REPOSITORY Order Comment: 'TROP' Serial specimen #1, #2, #3, or #4: 1 TYPE CODE TESTS RESULT OUT OF RANGE REFERENCE UNITS LAB L501.4010 Normal <0.06 ng/mL < 0.02 TROPONIN-I Result Comment: TROPONIN-I EXPECTED VALUES <0.05 NEGATIVE 0.06 - 0.59 AT RISK OF NM > OR = 0.60 SUGGEST NM Performed By: #### L500.2500, L501.4010 #### [facility] [address] [place], [place], [address] BNP,B-TYPE NATRIURETIC Collected: 11/16/2017 Status: F Source: [place] PEPTIDE 8:56 PM [facility] REPOSITORY TYPE CODE TESTS RESULT OUT OF RANGE REFERENCE UNITS LAB L503.6620 Normal 0-100 pg/mL < 2.0 B-TYPE NIKO PEP Performed By: #### L503.20 #### [facility] [address] [place], [address] PROGRESS Observed: 11/08/2017 Status: COMPLETED Source: [place] 5:46 PM [facility] REPOSITORY HNO ID: [id number]: Naomi Ybarra (Specialist Icu) FRANCIS CoxService: (none)Author Type: Nurse PractitionerType: Progress NotesFiled: 11/08/2017 5:54 PMNote Text:HPIPatient presents with:Cough: chest congestion AND tightness AND nasal drainage X 3 wksDenies any otc treatment for symptoms.Review of SystemsConstitutional: Negative for chills, fever and malaise/fatigue.HENT: Positive for congestion and sore throat. Negative for ear pain.Eyes: Negative for discharge and redness.Respiratory: Positive for cough and wheezing. Negative for hemoptysis,sputum production and shortness of breath.Gastrointestinal: Negative for abdominal pain, diarrhea, nausea andvomiting.Skin: Negative for rash.Neurological: Negative for headaches.All other systems reviewed and are negative.PAST MEDICAL HISTORYDiagnosis Date- abnormal pap 2008 Repeat normal- Abnormal Pap smear of cervixPAST SURGICAL HISTORYProcedure Laterality Date- ANESTH, SECTION- DELIVERY ONLY 08/14/2011 , low transverse- EGD N/A 10/27/2016 MAC- PAST SURGICAL HISTORY OF miscarriages x 2- REMOVAL ADENOIDS,PRIMARY,<12 Y/O Adenoidectomy- REMOVAL OF TONSILS,<12 Y/O 1992 TonsillectomyALLERGIES Review of patient's allergies indicates no known allergies.MEDICATIONSFOLBIC 2.5-25-2 mg tabprenatal multivitamin (CLASSIC ) 28 mg iron- 800 mcg tab(s) Take 1tablet by mouth.medroxyPROGESTERone (PROVERA, CYCRIN) 10 mg tabletaspirin 81 mg chewable tablet Take 81 mg by mouth once daily.SACCHAROMYCES BOULARDII (PROBIOTIC, S.BOULARDII, ORAL) Take by mouth oncedaily.FAMILY HISTORYProblem Relation Age of Onset- Heart Maternal Grandmother- Diabetes Maternal Grandfather- Breast Cancer Paternal Aunt- Thyroid Sister- Thyroid Sister- Thyroid Maternal Aunt- Thyroid Maternal Aunt- Thyroid Maternal Aunt- Thyroid Maternal Aunt- Thyroid Maternal Aunt- kidney cancer [Other] [OTHER] FatherSocial HistorySubstance Use Topics- Smoking status: Never Smoker- Smokeless tobacco: Never Used- Alcohol use YesPhysical ExamConstitutional: She is well-developed, well-nourished, and in no distress.HENT:Head: Normocephalic.Right Ear: Tympanic membrane, external ear and ear canal normal.Left Ear: Tympanic membrane, external ear and ear canal normal.Nose: Rhinorrhea present. Right sinus exhibits no maxillary sinustenderness and no frontal sinus tenderness. Left sinus exhibits nomaxillary sinus tenderness and no frontal sinus tenderness.Mouth/Throat: Posterior oropharyngeal erythema (PND) present.Eyes: Conjunctivae are normal.Neck: Normal range of motion. Neck supple.Cardiovascular: Normal rate, regular rhythm and normal heart sounds.Pulmonary/Chest: Effort normal. No respiratory distress. She has nowheezes. She has rhonchi (faint scattered rhonchi in b/l upper posteriorlobes).Abdominal: Soft. She exhibits no distension. There is no tenderness.Lymphadenopathy: She has no cervical adenopathy.Skin: Skin is warm and dry. No rash noted.Nursing note and vitals reviewed.ASSESSMENT/PLAN:1. Sinobronchitis - ICD9: 473.9, 490, ICD10: J32.9, J40- Will begin treatment with Zithromax pack as directed- The patient should also be given OTC decongestants prn, OTC cough andcold meds as needed, warm salt water gargles, throat lozenges and/or OTCthroat spray as needed and nasal saline gtts and suction prn for the first5-7 days of treatment.- Supportive care with plenty of fluids, rest, and analgesia prn.- Follow up in 3-5 days if symptoms persist or worsen.Prescription instructions reviewed with patient as applicable. Patientadvised if symptoms do not improve or if symptoms worsen sooner, tocontact their primary care physician. Potential red flag symptomsdiscussed with the patient. Reviewed appropriate action plan to take ifred flag symptoms occur. Patient agreeable to treatment plan.FRANCIS Howe Observed: 11/08/2017 Status: COMPLETED Source: [place] 5:45 PM [facility] REPOSIT[facility] Office Visit (WSTR) NAM ZUNIGA ([id number]) 1980 FDate Time Provider Department11/08/17 5:45 PM NAOMI COX ([employer] [facility]) [facility] During your visit today, we recorded the following information about you: Temperature Pulse Respiration Blood pressure 98.4 degrees 97/minute 16/minute 98/74 Weight 50.7 kgNaomi Cox CNP, CNP 11/08/2017 5:54 PM SignedHPIPatient presents with:Cough: chest congestion ANDamp; tightness ANDamp; nasal drainage X 3 wksDenies any otc treatment for symptoms.Review of SystemsConstitutional: Negative for chills, fever and malaise/fatigue.HENT: Positive for congestion and sore throat. Negative for ear pain.Eyes: Negative for discharge and redness.Respiratory: Positive for cough and wheezing. Negative for hemoptysis, sputumproduction and shortness of breath.Gastrointestinal: Negative for abdominal pain, diarrhea, nausea and vomiting.Skin: Negative for rash.Neurological: Negative for headaches.All other systems reviewed and are negative.PAST MEDICAL HISTORYDiagnosis Date- abnormal pap 2008 Repeat normal- Abnormal Pap smear of cervixPAST SURGICAL HISTORYProcedure Laterality Date- ANESTH, SECTION- DELIVERY ONLY 08/14/2011 , low transverse- EGD N/A 10/27/2016 MAC- PAST SURGICAL HISTORY OF miscarriages x 2- REMOVAL ADENOIDS,PRIMARY,ANDlt;14 Y/O Adenoidectomy- REMOVAL OF TONSILS,ANDlt;14 Y/O 1992 TonsillectomyALLERGIES Review of patient's allergies indicates no known allergies.MEDICATIONSFOLBIC 2.5-25-2 mg tabprenatal multivitamin (CLASSIC ) 28 mg iron- 800 mcg tab(s) Take 1tablet by mouth.medroxyPROGESTERone (PROVERA, CYCRIN) 10 mg tabletaspirin 81 mg chewable tablet Take 81 mg by mouth once daily.SACCHAROMYCES BOULARDII (PROBIOTIC, S.BOULARDII, ORAL) Take by mouth oncedaily.FAMILY HISTORYProblem Relation Age of Onset- Heart Maternal Grandmother- Diabetes Maternal Grandfather- Breast Cancer Paternal Aunt- Thyroid Sister- Thyroid Sister- Thyroid Maternal Aunt- Thyroid Maternal Aunt- Thyroid Maternal Aunt- Thyroid Maternal Aunt- Thyroid Maternal Aunt- kidney cancer [Other] [OTHER] FatherSocial HistorySubstance Use Topics- Smoking status: Never Smoker- Smokeless tobacco: Never Used- Alcohol use YesPhysical ExamConstitutional: She is well-developed, well-nourished, and in no distress.HENT:Head: Normocephalic.Right Ear: Tympanic membrane, external ear and ear canal normal.Left Ear: Tympanic membrane, external ear and ear canal normal.Nose: Rhinorrhea present. Right sinus exhibits no maxillary sinus tendernessand no frontal sinus tenderness. Left sinus exhibits no maxillary sinustenderness and no frontal sinus tenderness.Mouth/Throat: Posterior oropharyngeal erythema (PND) present.Eyes: Conjunctivae are normal.Neck: Normal range of motion. Neck supple.Cardiovascular: Normal rate, regular rhythm and normal heart sounds.Pulmonary/Chest: Effort normal. No respiratory distress. She has no wheezes.She has rhonchi (faint scattered rhonchi in b/l upper posterior lobes).Abdominal: Soft. She exhibits no distension. There is no tenderness.Lymphadenopathy: She has no cervical adenopathy.Skin: Skin is warm and dry. No rash noted.Nursing note and vitals reviewed.ASSESSMENT/PLAN:1. Sinobronchitis - ICD9: 473.9, 490, ICD10: J32.9, J40- Will begin treatment with Zithromax pack as directed- The patient should also be given OTC decongestants prn, OTC cough and coldmeds as needed, warm salt water gargles, throat lozenges and/or OTC throatspray as needed and nasal saline gtts and suction prn for the first 5-7 days oftreatment.- Supportive care with plenty of fluids, rest, and analgesia prn.- Follow up in 3-5 days if symptoms persist or worsen.Prescription instructions reviewed with patient as applicable. Patient advisedif symptoms do not improve or if symptoms worsen sooner, to contact theirprimary care physician. Potential red flag symptoms discussed with thepatient. Reviewed appropriate action plan to take if red flag symptoms occur.Patient agreeable to treatment plan.Naomi Cox CNPReferring Provider: SELF [200]Allergies As of Date: 11/08/2017(No Known Allergies)Date Reviewed: 11/08/2017Reviewed by: Navjot Munoz LPN - Fully AssessedReason for Visit: Cough [28] Cmt: chest congestion AND tightness AND nasal drainage X 3 wksReason For Visit History RecordedPrimary Visit Diagnosis:Sinobronchitis [J32.9, J40]Order(s):azithromycin (ZITHROMAX Z-SUGEY) 250 mg tabletTake 2 tablets day one, then, 1 tablet daily until gone.Disp: 1 PackageRfl: 0 predniSONE (DELTASONE) 20 mg tabletTake 2 tablets by mouth once daily for 5 days. Take daily with food.Disp: 10 tabletRfl: 0 Twqwtfuugevnvkn-Zphaeqpoi-AJ (BROMFED DM) 2-30-10 mg/5 mL syrupTake 10 mL by mouth four times daily as needed for up to 7 days.Disp: 240 mLRfl: 0Prescriptions as of 11/08/2017 Sig: FOLBIC 2.5 MG-25 MG-2 MG TABL* VITS NO.126-FERROUS * Take 1 tablet by mouth. AZITHROMYCIN 250 MG TABLET Take 2 tablets day one, then,* PREDNISONE 20 MG TABLET Take 2 tablets by mouth once * BROMPHENIRAMINE-PSEUDOEPHEDRI* Take 10 mL by mouth four time* MEDROXYPROGESTERONE 10 MG TAB* ASPIRIN 81 MG CHEWABLE TABLET Take 81 mg by mouth once doris* PROBIOTIC (S.BOULARDII) ORAL Take by mouth once daily.Medication notes this encounter MEDROXYPROGESTERONE 10 MG TABLET >> Navjot Munoz LPN 11/08/2017 5:39 PM >> NAVJOT MUNOZ LPN TueNov 08, 2017 5:39 PM No longer taking ASPIRIN 81 MG CHEWABLE TABLET >> Navjot Munoz LPN 11/08/2017 5:39 PM >> NAVJOT MUNOZ LPN TueNov 08, 2017 5:39 PM No longer takingProblem List As Of Date 11/08/2017 Noted Resolved Acne Vulgaris: Grade III to IV Inflammatory of *INVALID FOR* 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 PREDNISONE 20 MG TABLET 10 t* 0 11/08/2017 11/13/2017 Route: ORAL Sig: Take 2 tablets by mouth once daily for 5 days. Take daily with food. MFJHAKJPNWATTWF-KEJCLSJSYLKUKHE-FB 2* 240 * 0 11/08/2017 11/15/2017 Route: ORAL Sig: Take 10 mL by mouth four times daily as needed for up to 7 days.Disposition: Return if symptoms worsen or fail to improve.Follow-up and Disposition History RecordedEncounter Number: [id number] Status:Closed by NAOMI COX on 11/08/17 PROGRESS Observed: 10/14/2017 Status: COMPLETED Source: [place] 7:31 AM [facility] REPOSITORY HNO ID: [id number]: Jeancarlos ([facility]) Tessa: (none)Author Type: Nurse PractitionerType: Progress NotesFiled: 10/14/2017 7:47 AMNote Text:HPIHPI Nam Zuniga is a 37 year old female who presents today for CC ofsore throat. This started 2 days ago. Has tried nothing. Symptoms aremade relieved by nothing. Symptoms are worsened by nothing. 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 Denies possibility ofbeing .Review of SystemsConstitutional: Negative for chills, fever and weight loss.HENT: Positive for sore throat. Negative for congestion, ear pain andnosebleeds.Respiratory: Negative for cough, shortness of breath and wheezing.Musculoskeletal: Negative for neck pain.PAST MEDICAL HISTORYDiagnosis Date- abnormal pap 2007 Repeat normal- Abnormal Pap smear of cervixPAST SURGICAL HISTORYProcedure Laterality Date- ANESTH, SECTION- DELIVERY ONLY 08/14/2011 , low transverse- EGD N/A 10/27/2016 MAC- PAST SURGICAL HISTORY OF miscarriages x 2- REMOVAL ADENOIDS,PRIMARY,<12 Y/O Adenoidectomy- REMOVAL OF TONSILS,<12 Y/O 1991 TonsillectomyALLERGIES Review of patient's allergies indicates no known allergies.MEDICATIONSFOLBIC 2.5-25-2 mg tabmedroxyPROGESTERone (PROVERA, CYCRIN) 10 mg tabletaspirin 81 mg chewable tablet Take 81 mg by mouth once daily.SACCHAROMYCES BOULARDII (PROBIOTIC, S.BOULARDII, ORAL) Take by mouth oncedaily. multivitamin (CLASSIC ) 28 mg iron- 800 mcg tab(s) Take 1tablet by mouth.FAMILY HISTORYProblem Relation Age of Onset- Heart Maternal Grandmother- Diabetes Maternal Grandfather- Breast Cancer Paternal Aunt- Thyroid Sister- Thyroid Sister- Thyroid Maternal Aunt- Thyroid Maternal Aunt- Thyroid Maternal Aunt- Thyroid Maternal Aunt- Thyroid Maternal Aunt- kidney cancer [Other] [OTHER] FatherSocial HistorySubstance Use Topics- Smoking status: Never Smoker- Smokeless tobacco: Never Used- Alcohol use YesBlood pressure 90/64, pulse 84, temperature 37.2 ?C (98.9 ?F), temperaturesource Tympanic, resp. rate 18, weight 49 kg (108 lb), last menstrualperiod 10/13/2017, unknown if currently .Physical ExamConstitutional: She is oriented to person, place, and time andwell-developed, well-nourished, and in no distress. Non-toxic appearance.She does not have a sickly appearance. No distress.HENT:Head: Normocephalic and atraumatic.Right Ear: Hearing, tympanic membrane, external ear and ear canal normal.Left Ear: Hearing, tympanic membrane, external ear and ear canal normal.Nose: Nose normal.Mouth/Throat: Uvula is midline and mucous membranes are normal. Posteriororopharyngeal erythema present. No oropharyngeal exudate, posteriororopharyngeal edema or tonsillar abscesses.Eyes: Conjunctivae, EOM and lids are normal. Pupils are equal, round, andreactive to light. Lids are everted and swept, no foreign bodies found.Right eye exhibits no discharge. Left eye exhibits no discharge. Noscleral icterus.Neck: Trachea normal and normal range of motion. Neck supple.Cardiovascular: Normal rate, regular rhythm and normal heart sounds.Pulmonary/Chest: Effort normal and breath sounds normal.Lymphadenopathy: She has no cervical adenopathy.Neurological: She is alert and oriented to person, place, and time.Skin: No rash noted. She is not diaphoretic.ASSESSMENT/PLAN:1. Strep throat - ICD9: 034.0, ICD10: J02.0 (primary diagnosis)- Rapid Strep positive in the office today- Amoxicillin for 10 days.- Discussed supportive care treatment with fluids, rest and analgesia.- Contagious dz precautions discussed- including considered contagiousuntil on antibiotics for 24 hours- The patient should follow up in 3-5 days if symptoms persist or worsen- Call back if drooling, increased temperature, symptoms of dehydrationand/or still sick in one week- RAPID STREP TEST B/O- GROUP A STREPTOCOCCUS BY PCR- AMOXICILLIN 875 MG TABLETPrescription instructions reviewed with patient as applicable. Patientadvised if symptoms do not improve or if symptoms worsen sooner, tocontact the office for further evaluation by either myself or theirthe [facility]edical center care physician. Potential red flag symptoms discussed with thepatient. Reviewed appropriate action plan to take if red flag symptomsoccur. Patient agreeable to treatment plan.Jeancarlos Paiz CNP CNOV Observed: 10/14/2017 Status: COMPLETED Source: [place] 7:30 AM [facility] REPOSITORY Office Visit (UCWSTR) NAM ZUNIGA ([id number]) 1980 [facility] Time Provider Ftdiwrfklw82/22/17 7:30 AM JEANCARLOS PAIZ) WSTR During your visit today, we recorded the following information about you: Temperature Pulse Respiration Blood pressure 98.9 degrees 84/minute 18/minute 90/64 Weight Last Period 49 kg 10/13/17Jeancarlos Paiz CNP 10/14/2017 7:47 AM SignedHPMONA Zuniga is a 37 year old female who presents today for CC of sorethroat. This started 2 days ago. Has tried nothing. Symptoms are maderelieved by nothing. Symptoms are worsened by nothing. 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 Denies possibility of being .Review of SystemsConstitutional: Negative for chills, fever and weight loss.HENT: Positive for sore throat. Negative for congestion, ear pain andnosebleeds.Respiratory: Negative for cough, shortness of breath and wheezing.Musculoskeletal: Negative for neck pain.PAST MEDICAL HISTORYDiagnosis Date- abnormal pap 2007 Repeat normal- Abnormal Pap smear of cervixPAST SURGICAL HISTORYProcedure Laterality Date- ANESTH, SECTION- DELIVERY ONLY 08/14/2011 , low transverse- EGD N/A 10/27/2016 MAC- PAST SURGICAL HISTORY OF miscarriages x 2- REMOVAL ADENOIDS,PRIMARY,ANDlt;14 Y/O Adenoidectomy- REMOVAL OF TONSILS,ANDlt;14 Y/O 1991 TonsillectomyALLERGIES Review of patient's allergies indicates no known allergies.MEDICATIONSFOLBIC 2.5-25-2 mg tabmedroxyPROGESTERone (PROVERA, CYCRIN) 10 mg tabletaspirin 81 mg chewable tablet Take 81 mg by mouth once daily.SACCHAROMYCES BOULARDII (PROBIOTIC, S.BOULARDII, ORAL) Take by mouth oncedaily. multivitamin (CLASSIC ) 28 mg iron- 800 mcg tab(s) Take 1tablet by mouth.FAMILY HISTORYProblem Relation Age of Onset- Heart Maternal Grandmother- Diabetes Maternal Grandfather- Breast Cancer Paternal Aunt- Thyroid Sister- Thyroid Sister- Thyroid Maternal Aunt- Thyroid Maternal Aunt- Thyroid Maternal Aunt- Thyroid Maternal Aunt- Thyroid Maternal Aunt- kidney cancer [Other] [OTHER] FatherSocial HistorySubstance Use Topics- Smoking status: Never Smoker- Smokeless tobacco: Never Used- Alcohol use YesBlood pressure 90/64, pulse 84, temperature 37.2 ?C (98.9 ?F), temperaturesource Tympanic, resp. rate 18, weight 49 kg (108 lb), last menstrual oyrqbh2610/13/2017, unknown if currently .Physical ExamConstitutional: She is oriented to person, place, and time and well-developed,well-nourished, and in no distress. Non-toxic appearance. She does not have asickly appearance. No distress.HENT:Head: Normocephalic and atraumatic.Right Ear: Hearing, tympanic membrane, external ear and ear canal normal.Left Ear: Hearing, tympanic membrane, external ear and ear canal normal.Nose: Nose normal.Mouth/Throat: Uvula is midline and mucous membranes are normal. Posteriororopharyngeal erythema present. No oropharyngeal exudate, posteriororopharyngeal edema or tonsillar abscesses.Eyes: Conjunctivae, EOM and lids are normal. Pupils are equal, round, andreactive to light. Lids are everted and swept, no foreign bodies found. Righteye exhibits no discharge. Left eye exhibits no discharge. No scleral icterus.Neck: Trachea normal and normal range of motion. Neck supple.Cardiovascular: Normal rate, regular rhythm and normal heart sounds.Pulmonary/Chest: Effort normal and breath sounds normal.Lymphadenopathy: She has no cervical adenopathy.Neurological: She is alert and oriented to person, place, and time.Skin: No rash noted. She is not diaphoretic.ASSESSMENT/PLAN:1. Strep throat - ICD9: 034.0, ICD10: J02.0 (primary diagnosis)- Rapid Strep positive in the office today- Amoxicillin for 10 days.- Discussed supportive care treatment with fluids, rest and analgesia.- Contagious dz precautions discussed- including considered contagious untilon antibiotics for 24 hours- The patient should follow up in 3- 5 days if symptoms persist or worsen- Call back if drooling, increased temperature, symptoms of dehydration and/orstill sick in one week- RAPID STREP TEST B/O- GROUP A STREPTOCOCCUS BY PCR- AMOXICILLIN 875 MG TABLETPrescription instructions reviewed with patient as applicable. Patient advisedif symptoms do not improve or if symptoms worsen sooner, to contact the officefor further evaluation by either myself or their primary care physician.Potential red flag symptoms discussed with the patient. Reviewed appropriateaction plan to take if red flag symptoms occur. Patient agreeable to treatmentplan.Christina Pope CNP 10/14/2017 7:40 AM SignedWhat is strep throat?Strep throat is an infection caused by a specific type of bacteria,Streptococcus. When your child has a strep throat, the tonsils are usually veryinflamed, and the inflammation may affect the surrounding part of the throat aswell.SymptomsStrep throat is caused by a bacterium called Streptococcus pyogenes. To someextent, the symptoms of strep throat depend on the child?s age.- Infants with strep infections may have only a low fever and a thickened orbloody nasaldischarge.- Toddlers (ages one to three) also may have a thickened or bloody nasaldischarge with a fever. Such children are usually quite cranky, have noappetite, and often have swollen glands in the neck. Sometimes toddlers willcomplain of tummy pain instead of a sore throat.- Children over three years of age with strep are often more ill; they may havean extremely painful throat, fever over 102 degrees Fahrenheit (38.9 degreesCelsius), swollen glands in the neck, and pus on the tonsils.It?s important to be able to distinguish a strep throat from a viral sorethroat, because strep infections are treated with antibiotics.When to call the pediatricianIf your child has a sore throat that persists (not one that goes away after herfirst drink in the morning), whether or not it is accompanied by fever,headache, stomachache, or extreme fatigue, you should call your flange turner.That call should be made even more urgently if your child seems extremely ill,or if she has difficulty breathing or extreme trouble swallowing (causing herto drool). This may indicate a more serious infection.TreatmentIf the strep test shows that your child does have strep throat, yourpediatrician will prescribe an antibiotic to be taken by mouth or by injection.If your child is given the oral medication, it?s very important that she takeit for the full course, as prescribed, even if the symptoms get better or goaway.If a child?s strep throat is not treated with antibiotics, or if she doesn?tcomplete the treatment, the infection may worsen or spread to other parts ofher body, leading to conditions such as abscesses of the tonsils or kidneyproblems. Untreated strepinfections also can lead to rheumatic fever, a disease that affects the heart.However, rheumatic fever is rare in the [place] and in children underfive years old.PreventionMost types of throat infections are contagious, being passed primarily throughthe air on droplets of moisture or on the hands of infected children or adults.For that reason, it makes sense to keep your child away from people who havesymptoms of thiscondition. However, most people are contagious before their first symptomsappear, so often there?s really no practical way to prevent your child fromcontracting the disease.In the past when a child had several sore throats, her tonsils might have beenremoved in an attempt to prevent further infections. But this operation, calleda tonsillectomy, is recommended today only for the most severely affectedchildren. Even in difficultcases, where there is repeated strep throat, antibiotic treatment is usuallythe best solution.Referring Provider: SELF [200]Allergies As of Date: 10/14/2017(No Known Allergies)Date Reviewed: 10/14/2017Reviewed by: Jeancarlos ([facility]) [facility] for Visit: Nasal Congestion [235] Cmt: X 1 day Sore Throat [200] Cmt: X 2 dayPrimary Visit Diagnosis:Strep throat [J02.0]Order(s):RAPID STREP TEST B/O [3411797] Order #: [id number] amoxicillin (AMOXIL) 875 mg tabletTake 1 tablet by mouth twice daily for 10 days.Disp: 20 tabletRfl: 0Prescriptions as of 10/14/2017 Sig: FOLBIC 2.5 MG-25 MG-2 MG TABL* MEDROXYPROGESTERONE 10 MG TAB* ASPIRIN 81 MG CHEWABLE TABLET Take 81 mg by mouth once doris* PROBIOTIC (S.BOULARDII) ORAL Take by mouth once daily. VITS NO.126-FERROUS * Take 1 tablet by mouth. AMOXICILLIN 875 MG TABLET Take 1 tablet by mouth twice *Problem List As Of Date 10/14/2017 Noted Resolved Acne Vulgaris: Grade III to IV Inflammatory of *INVALID FOR* Functional dyspepsia [K30] INVALID FOR* Other instructions from your clinician: What is strep throat? Strep throat is an infection caused by a specific type of bacteria, Streptococcus. When your child has a strep throat, the tonsils are usually very inflamed, and the inflammation may affect the surrounding part of the throat as well. Symptoms Strep throat is caused by a bacterium called Streptococcus pyogenes. To some extent, the symptoms of strep throat depend on the child?s age. - Infants with strep infections may have only a low fever and a thickened or bloody nasal discharge. - Toddlers (ages one to three) also may have a thickened or bloody nasal discharge with a fever. Such children are usually quite cranky, have no appetite, and often have swollen glands in the neck. Sometimes toddlers will complain of tummy pain instead of a sore throat. - Children over three years of age with strep are often more ill; they may have an extremely painful throat, fever over 102 degrees Fahrenheit (38.9 degrees Celsius), swollen glands in the neck, and pus on the tonsils. It?s important to be able to distinguish a strep throat from a viral sore throat, because strep infections are treated with antibiotics. When to call the flange turner If your child has a sore throat that persists (not one that goes away after her first drink in the morning), whether or not it is accompanied by fever, headache, stomachache, or extreme fatigue, you should call your flange turner. That call should be made even more urgently if your child seems extremely ill, or if she has difficulty breathing or extreme trouble swallowing (causing her to drool). This may indicate a more serious infection. Treatment If the strep test shows that your child does have strep throat, your flange turner will prescribe an antibiotic to be taken by mouth or by injection. If your child is given the oral medication, it?s very important that she take it for the full course, as prescribed, even if the symptoms get better or go away. If a child?s strep throat is not treated with antibiotics, or if she doesn?t complete the treatment, the infection may worsen or spread to other parts of her body, leading to conditions such as abscesses of the tonsils or kidney problems. Untreated strep infections also can lead to rheumatic fever, a disease that affects the heart. However, rheumatic fever is rare in the [place] and in children under five years old. Prevention Most types of throat infections are contagious, being passed primarily through the air on droplets of moisture or on the hands of infected children or adults. For that reason, it makes sense to keep your child away from people who have symptoms of this condition. However, most people are contagious before their first symptoms appear, so often there?s really no practical way to prevent your child from farrah the disease. In the past when a child had several sore throats, her tonsils might have been removed in an attempt to prevent further infections. But this operation, called a tonsillectomy, is recommended today only for the most severely affected children. Even in difficult cases, where there is repeated strep throat, antibiotic treatment is usually the best solution.Prescriptions ordered this encounter Disp Refills Start End AMOXICILLIN 875 MG TABLET 20 t* 0 10/14/2017 10/24/2017 Route: ORAL Sig: Take 1 tablet by mouth twice daily for 10 days.Medications Discontinued During This Encounter amoxicillin (AMOXIL) 875 mg tablet 20 t* 0 03/05/2017 10/14/2017 Route: ORAL Sig: Take 1 tablet by mouth twice daily for 10 days. Disc: Reason for discontinue is not on file. Status:Closed by JEANCARLOS PAIZ CNP on 10/14/17 ALLERGIES ALLERGIES DATE TYPE / CODE NAME / CODE REACTION SEVERITY SOURCE 11/16/2017 Drug No Known Unknown [facility] Allergy/416 Allergies/W42249 Hospital 059130(SNOM 0388(RXNORM) Repository ED CT) Drug NO KNOWN [facility] Class/08294 ALLERGIES [facility] [place] 1003(SNOMED Repository CT) ENCOUNTERS ENCOUNTERS ADMIT/DISCHARGE ACCOUNT ADMITTING ENCOUNTER LOCATION SOURCE NUMBER CLASS 08/10/2018 [id number] [facility] ing:WP Repository 08/08/2018 [id number] [facility] ing:WPOUT Repository 08/08/2018/08/08/[id number] [place] Repository 08/01/2018/08/02/20 [id number] Ambulatory [address] [place] Repository 07/25/2018/07/27/20 [id number] Ambulatory [address] [place] Repository 07/18/2018/07/20/20 [id number] Ambulatory [address] [place] Repository 07/18/2018/07/19/20 [id number] Ambulatory [address] [place] Repository 07/11/2018/07/12/20 [id number] Ambulatory [address] [place] Rep[place] 07/05/2018/07/05/20 [id number] Ambulatory [address] [place] Repository 07/03/2018/07/03/20 [id number] Ambulatory [address] [place] Repository 06/16/2018/06/19/20 [id number] Ambulatory [facility] [place] Repository 05/30/2018/05/31/20 [id number] Ambulatory [facility] [place] Repository 05/30/2018/06/01/20 [id number] Ambulatory [facility] [place] Repository 05/29/2018/05/29/20 [id number] Ambulatory [facility] [place] Repository 05/19/2018/05/19/20 [id number] Ambulatory [facility] [place] Repository 05/19/2018/05/22/20 [id number] Ambulatory [facility] [place] Repository 05/05/2018/05/12/20 [id number] Ambulatory [facility] [place] Repository 05/05/2018/05/12/20 [id number] Ambulatory [facility] [place] Repository 04/04/2018/04/04/20 [id number] Ambulatory [facility] [place] Repository 03/31/2018/04/04/20 [id number] Ambulatory [facility] [place] Repository 02/27/2018/02/28/20 [id number] Ambulatory [facility] [place] Repository 02/27/2018/03/01/20 [id number] Ambulatory [facility] [place] Repository 02/13/2018/02/14/20 [id number] Ambulatory [facility] [place] Repository 01/30/2018/02/08/20 [id number] Ambulatory [facility] [place] Repository 01/30/2018/02/01/20 [id number] Ambulatory [facility] [place] Repository 11/16/2017/11/16/19 [id number] Emergency Brennon Willett [address] [place] [address] ing:ED Repository 11/08/2017/11/08/19 [id number] Ambulatory [facility] [place] Repository 10/14/2017/10/14/20 [id number] Ambulatory [facility] [place] Repository PAYERS PAYERS ENCOUNTER GUARANTOR PAYER SUBSCRIBER SOURCE 08/10/2018 Jimmy [id number] Insurance:[employer]ICAL [employer]: [facility] [id number] Number: Repository [id number]: [phone] [id number] [phone] (HP) Date:[id number] [address] [place] [id number]: 08/10/2018 Secondary NOT GIVENUNK Butler Insurance:SELF PAY [facility] Number: Effective Repository Date:2018-05-31 08/08/2018 Jimmy Lomeli Primary NAM L Butler [id number] Insurance:MEDICAL [facility]: [facility] [id number] Number: Repository [id number]: 330 [id number] [phone] () Date:[id number] [address] [address]BL: 08/08/2018 Secondary NOT GIVENUNK Brennon Insurance:SELF PAY [facility] Number: Effective Repository Date:2018-08-08 11/16/2017 Jimmy Lomeli Primary NAM L Brennon [id number] Insurance:[facility] [id number] Number: Repository [address]Kto: 330 [id number] [phone] () Date:[id number] [address] [address]QK: 11/16/2017 Secondary NOT GIVENUNK Butler Insurance:SELF PAY [facility] Number: Effective Repository Date:2017-11-16
[2018-08-08] MEDS: Lactated Ringers 1,000 ML 150 ML IV (18:55)
[2018-08-08] MEDS: Lactated Ringers 1,000 ML 999 ML IV (19:00)
[2018-08-08] MEDS: Sodium Citrate/Citric Acid 30 ML UDC PO (19:10)
[2018-08-08] MEDS: Cefazolin 2 GM in 0.9% Normal Saline 100 ML IV (19:19)
--- NOTE | 2018-08-08 19:34 | PN_ITS ---
Progress Note Patient presented for her preoperative testing today. When she arrived she began to contract more regularly. She began to have cervical change in the contractions became more regular. Her will be performed today on 08/08/2018 instead of 08/10/18 due to 38- week , spontaneous labor, history of previous .
[2018-08-08] MEDS: Oxytocin 30 units/NS 500 ml 30 UNITS/500 ML IV.SOLN 167 UNITS IV (19:43)
[2018-08-08] MEDS: Methylergonovine 0.2 MG/ML Ampul IM (19:47)
--- NOTE | 2018-08-08 20:04 | PCM.OB.CSR ---
Delivery Classification: LAKSHMI Final ADRIANA: 08/17/18 Final ADRIANA Source: US <20 weeks Gestational age: 38 Weeks and 5 Days Indications for : Repeat Elective , - - labor Description of Procedure: The patient was taken to the operating room. She was prepped and draped in the dorsal supine position with a leftward tilt. A Pfannenstiel skin incision was made approximately 2 cm above the symphysis pubis and carried through to underlying layer fascia with the scalpel. The fascia was incised incised in the midline and extended laterally with the Christensen scissors. The fascia was dissected off the rectus muscles with blunt and sharp dissection. The rectus muscles were in the midline and the peritoneum was entered bluntly. The peritoneal incision was stretched and the bladder blade was placed. The uterine incision was made in a low transverse fashion with the scalpel and extended superiorly and inferiorly with blunt dissection. The amniotic membranes were ruptured bluntly and clear amniotic fluid returned. The 's head was brought to the incision in the flexed position and delivered without difficulty. The remainder of the infant was delivered with gentle traction and fundal pressure in the standard fashion. The mouth and nares were bulb suctioned. The cord was clamped and cut as the infant was stimulated. Cord clamping was delayed. The infant was handed off to the waiting nursing staff. The placenta was delivered with fundal massage and gentle traction in the standard fashion. The uterus was exteriorized and cleared of all clots and debris. . The uterine incision was closed with #1 Vicryl in a running locked fashion. A second layer of the same suture was used in an imbricating fashion. The incision was examined and was found to be hemostatic. 1 dose of IM Methergine was given to prevent uterine atony. The uterus then firmed up very nicely. The uterus was placed back into the peritoneal cavity and hemostasis was again confirmed. The rectus muscles were examined and any bleeding was Bovie cauterized. The parietal peritoneum and rectus muscles were closed en bloc with an 0 Vicryl running suture the rectus fascia was examined and any bleeding was Bovie cauterized and the rectus fascia was closed with 1 Vicryl suture in a running standard fashion. The subcutaneous tissue was examining and any bleeding was Bovie cauterized. The skin was closed in a subcuticular fashion by Dr. Lemos. I performed the remainder of the procedure with assistance. All sponge, lap, and needle counts were correct. The patient was taken to her room for recovery in a stable condition. Amniotic Membrane Rupture Type: Artificial Amniotic Fluid Description: Clear Placenta Disposition: [facility] Drain: Cheema to straight drain Fluids Replaced: LR Cord Entanglement: Around neck x 1, loose Nuchal Cord Compression: Without compression Cord Vessel Description: 3 Vessels Esitmated Blood Loss (ml): 700 Infant Gender: Male Delayed cord clamping: Yes Pre-op Antibiotic Given: Ancef 2 grams IV x1 Complications: None - Admit VTE Documentation VTE Present on Admission: No VTE Mechan Device Prophylaxis: SCD's VTE Pharm Prophylaxis ordered?: No Reason prophylaxis not ordered:: Treatment Not Indicated
[2018-08-09] VITALS (13 sets, daily range): BP systolic 88–104; BP diastolic 46–61; PULSE 56–72; RESP 16–18; TEMP 36.1–36.8; O2SAT 96–98
[2018-08-09] MEDS: Ketorolac 30 MG/ML Syringe IV ×4 (02:00→20:06)
[2018-08-09 04:25] LABS: Hematocrit 33.5 % (37-47); Hemoglobin 11.2 g/dl (12.0-15.0); Mean Corp Hgb Conc 33.4 g/gl (32-36); Mean Corpuscular Hgb 32.5 pg (27.0-32.0); Mean Corpuscular Volume 97.1 fL (81-99); Platelet Count 183 K/mm3 (150-450); RBC Distribution Width CV 16.1 % (11.6-14.6); RBC Distribution Width SD 54.9 fl (35.1-43.9); Red Blood Count 3.45 M/mm3 (4.2-5.4)
[2018-08-09 04:37] LABS: Scan Indicated on CBC? Y/N NO
--- NOTE | 2018-08-09 16:55 | PCM.PN.OB ---
Subjective: Pain well controlled, average lochia, nausea well controlled now. Emesis and nausea last night. - Physical Exam General: Alert, Cooperative, No apparent distress Abdomen: Soft, Distended - mildly, softly, Tender - appropriately Extremities: Edema - trace Skin: Incision - bandage clean, dry and intact Vital Signs Temp Pulse Resp BP Pulse Ox 98.2 F 65 16 89/48 L 97 08/09/18 12:00 08/09/18 12:00 08/09/18 12:00 08/09/18 12:00 08/09/18 12:00 Oxygen Delivery Method Room Air Weight: 58.513 kg Body Mass Index (BMI) 25.2 Intake and Output for Last 24 Hours 08/07/18 08/08/18 08/09/18 23:59 23:59 23:59 Intake Total 1800 / 1800 1100 / 1100 Output Total 400 / 400 1750 / 1750 Balance 1400 / 1400 -650 / -650 Laboratory Tests Past 24 Hrs 08/09/18 04:15 WBC 13.0 H RBC 3.45 L Hgb 11.2 L Hct 33.5 L MCV 97.1 MCH 32.5 H MCHC 33.4 RDW 16.1 H RDW Differential 54.9 H Plt Count 183 MPV 11.0 Medical Necessity - Tobacco Use Smoking Status: Never smoker Assessment/Plan All Active Problems (Acute) AMA (advanced maternal age) multigravida 35+ (Acute) History of delivery (Acute) Postoperative day #1 status post repeat . Patient is doing well. Routine care. is breast-feeding and doing well
--- NOTE | 2018-08-09 17:55 | NURSING ---
small bp cuff obtained for fit on patient small arm
[2018-08-09] MEDS: oxyCODONE 5 MG Tablet PO (20:35)
[2018-08-10] MEDS: Ketorolac 30 MG/ML Syringe IV (02:51)
[2018-08-10 02:52] VITALS: BP 92/62; PULSE 58; RESP 18; TEMP 36.6; O2SAT 97
[2018-08-10] MEDS: oxyCODONE 5 MG Tablet PO ×5 (06:41→22:34)
[2018-08-10 08:00] VITALS: BP 88/53; TEMP 36.3
--- NOTE | 2018-08-10 08:53 | PCM.PN.OB ---
Subjective: Pain well controlled, average lochia. Positive flatus no bowel movement. Tolerating regular diet. - Physical Exam General: Alert, Cooperative, No apparent distress Abdomen: Soft, Distended - Mildly, softly, Tender - Appropriately Extremities: Edema - 1+ Skin: Incision - Bandage with 2 small spots of sanguinous drainage. Otherwise clean dry and intact Vital Signs Temp Pulse Resp BP Pulse Ox 97.8 F 58 L 18 92/62 97 08/10/18 02:52 08/10/18 02:52 08/10/18 02:52 08/10/18 02:52 08/10/18 02:52 Oxygen Delivery Method Room Air Weight: 58.513 kg Body Mass Index (BMI) 25.2 Intake and Output for Last 24 Hours 08/08/18 08/09/18 08/10/18 23:59 23:59 23:59 Intake Total 1800 / 1800 1100 / 1100 Output Total 400 / 400 2350 / 2350 400 / 400 Balance 1400 / 1400 -1250 / -1250 -400 / -400 Medical Necessity - Tobacco Use Smoking Status: Never smoker Assessment/Plan All Active Problems (Acute) AMA (advanced maternal age) multigravida 35+ (Acute) History of delivery (Acute) Postoperative day #2 status post repeat section Patient is doing well, routine care. Likely will desire discharge home tomorrow. Okay to discharge tonight if patient desires. Infant is breast-feeding and doing well
--- NOTE | 2018-08-10 08:58 | DCINST_ITS ---
Discharge Diet: No Restrictions Discharge Activity: Return to Normal Activity, May Not Drive - for 2 weeks, May not drive while taking narcotic pain medications., May Shower, May Take a Tub Bath - in 7 days. May resume sexual activity in: 4-6 weeks Lifting Restrictions: 20 pounds Additional Activity Instructions:: Nothing in the vagina for 4-6 weeks. You may return to work/school in 6 weeks. Call your doctor if your incision/area has: Continuous Slow Oozing, Sudden Increased Bleeding, Increased Pain/ Swelling, Increased Redness, Foul Smelling Discharge Call your doctor if you observe: Fever of 101 or Higher, Using more than one pad per hour - for 2 hours Suture Line Care: Avoid Pulling/Pushing, Avoid Pinching/Bending Cleanse incision/area with: Keep Dressing Clean & Dry Additional Instructions: If you experience any of the following, contact your healthcare provider. * Bleeding that soaks a pad every hour for 2 hours * Fever 100.4 or higher * Unrelieved incision or abdominal pain * Swelling, redness, discharge or bleeding from your incision or episiotomy site * Your incision begins to separate * Problems urinating (including inability to urinate or burning while urinating). * Visual changes * Severe headache * Flu-like symptoms * Pain or redness in one of both of your breasts * Pain, warmth, tenderness or swelling in your legs, especially the calf area * Frequent nausea and vomiting * Symptoms of depression or anxiety If you experience any of the following, call 911 or go to the nearest Emergency Room. * Chest pain * Problems breathing * Seizure activity * Partial or complete paralysis of a body part, slurred speech, weakness or drooping of the face, or a sudden inability to walk or hold your balance Allergies/Adverse Reactions: Allergies No Known Allergies Allergy (Verified 11/16/17 20:34) Medications to take at Discharge Tablet 08/08/18 Ibuprofen [Motrin] 800 mg PO TID PRN PRN #60 tablet 08/10/18 Oxycodone HCl/Acetaminophen [Percocet 5/325] 1 - 2 tablet PO Q8 PRN 7 Days #28 tablet 08/10/18 The following prescriptions were given: Ibuprofen [Motrin] 800 mg PO TID PRN PRN #60 tablet PRN Reason: Pain Oxycodone HCl/Acetaminophen [Percocet 5/325] 1 - 2 tablet PO Q8 PRN 7 Days #28 tablet PRN Reason: Pain Follow-Up: Call to make an appointment with your doctor for an incision check in 1-2 weeks. You will also need a 6 week post- follow up appointment. Test results from this visit will be discussed in further detail at your follow- up appointment, if applicable. Please Follow Up With: Marilee Guevara MD - Call to make an appointment for an incision check in 1-2 [phone] When: You will need a post check in 6 weeks and a postop visit in 1-2 week Primary Care Physician: Hoda Aleman DO [Primary Care Provider] -
[2018-08-10 14:46] VITALS: BP 93/52; PULSE 58; RESP 16; TEMP 36.6
[2018-08-10 21:00] VITALS: BP 111/41; PULSE 68; RESP 18; TEMP 36.6; O2SAT 100
[2018-08-11 02:00] VITALS: BP 87/54; PULSE 61; RESP 18; TEMP 36.8; O2SAT 97
[2018-08-11] MEDS: oxyCODONE 5 MG Tablet PO ×2 (02:53→08:34)
[2018-08-11 08:00] VITALS: BP 95/57; PULSE 65; RESP 16; TEMP 36.7
--- NOTE | 2018-08-11 08:39 | PCM.PN.OB ---
Subjective: pain well controlled, average lochia, no N/V. + flatus, no BM. tolerating regular diet - Physical Exam General: Alert, Cooperative, No apparent distress Abdomen: Soft, Distended - mildly, softly, Tender - appropriately Extremities: Edema - 1+ Skin: Incision - bandage - unchaged small spots of sanguinous drainage Vital Signs Temp Pulse Resp BP Pulse Ox 98.3 F 61 18 87/54 L 97 08/11/18 02:00 08/11/18 02:00 08/11/18 02:00 08/11/18 02:00 08/11/18 02:00 Oxygen Delivery Method Room Air Weight: 58.513 kg Body Mass Index (BMI) 25.2 Intake and Output for Last 24 Hours 08/09/18 08/10/18 08/11/18 23:59 23:59 23:59 Intake Total 1100 / 1100 Output Total 2350 / 2350 400 / 400 Balance -1250 / -1250 -400 / -400 Medical Necessity - Tobacco Use Smoking Status: Never smoker Assessment/Plan All Active Problems (Acute) AMA (advanced maternal age) multigravida 35+ (Acute) History of delivery (Acute) Postoperative day #3 status post repeat . Patient is doing well. Ready for discharge. is breast-feeding and doing well. Patient will meet with sediment remediation consultant and then be discharged home.
--- NOTE | 2018-08-11 08:42 | PN.OBGYN_ITS ---
Subjective: pain well controlled, average lochia, no N/V. + flatus, no BM. tolerating regular diet - Physical Exam General: Alert, Cooperative, No apparent distress Abdomen: Soft, Distended - mildly, softly, Tender - appropriately Extremities: Edema - 1+ Skin: Incision - bandage - unchaged small spots of sanguinous drainage Vital Signs Temp Pulse Resp BP Pulse Ox 98.3 F 61 18 87/54 L 97 08/11/18 02:00 08/11/18 02:00 08/11/18 02:00 08/11/18 02:00 08/11/18 02:00 Oxygen Delivery Method Room Air Weight: 58.513 kg Body Mass Index (BMI) 25.2 Intake and Output for Last 24 Hours 08/09/18 08/10/18 08/11/18 23:59 23:59 23:59 Intake Total 1100 / 1100 Output Total 2350 / 2350 400 / 400 Balance -1250 / -1250 -400 / -400 Medical Necessity - Tobacco Use Smoking Status: Never smoker Assessment/Plan All Active Problems (Acute) AMA (advanced maternal age) multigravida 35+ (Acute) History of delivery (Acute) Postoperative day #3 status post repeat . Patient is doing well. Ready for discharge. is breast-feeding and doing well. Patient will meet with energy consultant and then be discharged home.
--- NOTE | 2018-08-11 08:42 | PCM.DC.SUM ---
Discharge Date and Diagnosis Date of Admission: 08/08/18 Date of Discharge: 08/11/18 Hospital Course and Treatment Operations: - - Repeat low transverse section Via Pfannenstiel skin incision Summary of Care Provided: 37-year-old female was admitted at 38-5/7 weeks gestation for spontaneous labor. She had a previous section and estimated weight on this fetus was estimated to be approximately 4500 g. Risk benefits and alternatives to repeat section were discussed with the patient, her questions were answered to her satisfaction and she desired to proceed. The section was performed without complications. By postoperative day #3 she was ambulating, urinating, and tolerating regular diet without difficulty. She was discharged home with routine instructions and prescriptions and follow-up in our office in 1-2 and 6 weeks. [] - Physical Exam Vital Signs Temp Pulse Resp BP Pulse Ox 98.3 F 61 18 87/54 L 97 08/11/18 02:00 08/11/18 02:00 08/11/18 02:00 08/11/18 02:00 08/11/18 02:00 Oxygen Delivery Method Room Air Weight: 58.513 kg Body Mass Index (BMI) 25.2 Intake and Output for Last 24 Hours 08/09/18 08/10/18 08/11/18 23:59 23:59 23:59 Intake Total 1100 / 1100 Output Total 2350 / 2350 400 / 400 Balance -1250 / -1250 -400 / -400 Discharge Diet: No Restrictions Discharge Activity: Return to Normal Activity, May Not Drive - for 2 weeks, May not drive while taking narcotic pain medications., May Shower, May Take a Tub Bath - in 7 days. May resume sexual activity in: 4-6 weeks Additional Activity Instructions:: Nothing in the vagina for 4-6 weeks. You may return to work/school in 6 weeks. Call your doctor if your incision/area has: Continuous Slow Oozing, Sudden Increased Bleeding, Increased Pain/ Swelling, Increased Redness, Foul Smelling Discharge Call your doctor if you observe: Fever of 101 or Higher, Using more than one pad per hour - for 2 hours Suture Line Care: Avoid Pulling/Pushing, Avoid Pinching/Bending Cleanse incision/area with: Keep Dressing Clean & Dry Home Medications: Medications to take at Discharge Tablet 08/08/18 Ibuprofen [Motrin] 800 mg PO TID PRN PRN #60 tablet 08/10/18 Oxycodone HCl/Acetaminophen [Percocet 5/325] 1 - 2 tablet PO Q8 PRN 7 Days #28 tablet 08/10/18 Following Prescrptions Were Given to Patient: Ibuprofen [Motrin] 800 mg PO TID PRN PRN #60 tablet PRN Reason: Pain Oxycodone HCl/Acetaminophen [Percocet 5/325] 1 - 2 tablet PO Q8 PRN 7 Days #28 tablet PRN Reason: Pain Primary Care Physician: Hoda Aleman DO [Primary Care Provider] - Please Follow Up With: Marilee Guevara MD - Call to make an appointment for an incision check in 1-2 [phone] When: You will need a post check in 6 weeks and a postop visit in 1-2 week Medical Necessity - Tobacco Use Smoking Status: Never smoker Meaningful Use Info Meaningful Use Diagnoses (Choose all that apply): None applicable
== END 2018-08-11 11:00 | disposition home or self-care (01) | DRG 788 ==
LOC: WP 08-09 06:47 → WPOUT 08-09 07:46
PROVIDERS: Admitting Provider Obstetrics & Gynecology; Family Provider Internal Medicine; PCP Internal Medicine; Referring Provider Obstetrics & Gynecology; Visit Provider Obstetrics & Gynecology
DX: O34.211 Maternal care for low transverse scar from previous cesarean delivery (principal); O69.81X0 Labor and delivery complicated by cord around neck, without compression, not applicable or unspecified; Z3A.38 38 weeks gestation of pregnancy; Z37.0 Single live birth
CPT/HCPCS: 59025; 59050; 85025; 85027; 86850; 86900; 99218; J7120; A4216; G0378; J2405

== ENCOUNTER 2018-08-15 14:05 | Outpatient (CLI) | payer OTHER, SELFPAY | END 2018-08-15 15:15 | disposition home or self-care (01) | LOC: WPOUT 14:06 → WP 14:08 | PROVIDERS: Family Provider Internal Medicine; PCP Internal Medicine; Referring Provider Obstetrics & Gynecology; Visit Provider Obstetrics & Gynecology | DX: Z39.1 Encounter for care and examination of lactating mother (principal) | CPT/HCPCS: 96152 ==

== ENCOUNTER → 2019-08-11 08:43 | Outpatient (CLI) | payer OTHER, SELFPAY ==
--- NOTE | 2019-08-11 08:55 | MRI_ITS ---
STUDY: MRI BRAIN WITH AND WITHOUT CONTRAST REASON FOR EXAM: Female, 38 years old. Pituitary adenoma, recheck. TECHNIQUE: Standardized multiplanar fat and water weighted pulse sequences were obtained. IV Dotarem 9 was administered for the contrast portion of the examination. COMPARISON: 27 March 2014 FINDINGS: Normal size of the ventricles and extra-axial spaces for the patient's age. Normal white matter tracts of the supratentorial brain. Normal bilateral basal ganglia. Normal thalami. There is no extra-axial fluid accumulation. Normal flow voids within the major intracranial circulation suggesting patency by spin echo criteria. Normal venous enhancement. There is no enhancing intra-axial or extra-axial abnormality. The pituitary gland on sagittal image at the level of the infundibulum measures cranial caudal 0.6 cm in anterior posterior 1.2 cm and previously measuring 0.7 cm x 1.2 cm with stable appearance. Normal tectal plate and pineal gland. Normal midbrain, aneesh and medulla. Normal cerebellum. Normal basal cisterns. Normal bilateral temporal bones. Normal bilateral internal auditory canals. No demonstrated orbital abnormality, within the constraints of a routine brain study. Normal visualized paranasal sinuses. Normal calvarium and skull base. Normal visualized soft tissue structures. Normal visualized upper cervical spine. MRI/Brain W/WO Contrast IMPRESSION: 1. No evidence of acute intracranial bleed, mass or ischemia. 2. Stable size and configuration of the pituitary gland from 2013 with no evidence of new underlying lesion. Electronically Signed: Donald Carrasco DO at 17:56 EDT , Service support ,
== END ==
PROVIDERS: Family Provider Internal Medicine; PCP Internal Medicine; Referring Provider Internal Medicine Endocrinology, Diabetes & Metabolism; Visit Provider Internal Medicine Endocrinology, Diabetes & Metabolism
DX: D44.3 Neoplasm of uncertain behavior of pituitary gland (principal)
CPT/HCPCS: 70553; A9575

== ENCOUNTER 2019-10-25 12:36 | Emergency (ER) | payer OTHER, SELFPAY ==
[2019-09-12 14:06] VITALS: BMI 25.2
[2019-10-25 12:37] VITALS: BP 103/72; PULSE 61; RESP 17; TEMP 36.8; O2SAT 100; BMI 20.5
--- NOTE | 2019-10-25 12:40 | EKG12_ITS ---
Test Reason : CP Blood Pressure : / mmHG Vent. Rate : 057 BPM Atrial Rate : 057 BPM P-R Int : 124 ms QRS Dur : 066 ms QT Int : 404 ms P-R-T Axes : 064 067 051 degrees QTc Int : 393 ms Sinus bradycardia Septal infarct , age undetermined Abnormal ECG Confirmed by MICHELLE HAUSER, ISAAC ([id number]), publications editor ADOLPH CLEMENTS ([id number]) on 10/29/2019 12:30:24 PM Referred By: CHUY Confirmed By:ISAAC MARTINEZ MD
--- NOTE | 2019-10-25 14:10 | RAD_ITS ---
STUDY: X-RAY CHEST REASON FOR EXAM: Female, 39 years old. CHEST PAINS TECHNIQUE: Single frontal view of the chest. COMPARISON: 11/16/2017. FINDINGS: The lungs are clear and expanded. There is no demonstrated pleural abnormality. Normal size heart. Normal mediastinum and kody. Normal visualized pulmonary arteries. Normal visualized aortic arch and descending thoracic aorta. Normal visualized thoracic spine. Normal visualized ribs, clavicles, and shoulders. There is no demonstrated abnormality of the visualized soft tissue structures of the upper abdomen. RAD/Chest 1 View (Portable) IMPRESSION: Normal x-ray examination of the chest. Electronically Signed: Asif Sykes MD at 16:25 EST , Service support ,
[2019-10-25 14:33] VITALS: PULSE 57; RESP 17; O2SAT 100
[2019-10-25 14:47] LABS: Absolute Lymphocyte Count 2.09 X10^3/uL (0.83-4.51); Absolute Neutrophil Count 4.4 X10^3/uL (2.0-7.7); Basophil# 0.05 X10^3/uL; Basophil% 0.7 % (0-1); Eosinophil# 0.03 X10^3/uL; Eosinophils% 0.4 % (0-5); Hematocrit 41.8 % (37-47); Hemoglobin 13.8 g/dL (12.0-15.0); Lymphocyte # 2.09 X10^3/ul (4.0); Lymphocyte % 30.3 % (19-41); Mean Corpuscular Hgb 31.7 pg (27.0-32.0); Mean Corpuscular Volume 95.9 fL (81-99); Mean Platelet Vol. 10.2 fl (6.2-12.0); Monocyte# 0.34 X10^3/uL; Monocyte% 4.9 % (0-10); NRBC Flagged by Analyzer 0 % (0-5); Neutrophil # 4.37 X10^3/uL (2.7-7.7); Neutrophil % 63.4 % (47-70); Platelet Count 266 K/mm3 (150-450); RBC Distribution Width CV 12.1 % (11.6-14.6); RBC Distribution Width SD 42.7 fl (35.1-43.9); Red Blood Count 4.36 M/mm3 (4.2-5.4); White Blood Count 6.9 K/mm3 (4.4-11.0)
[2019-10-25 15:03] LABS: Anion Gap 5 (5-15); BUN 8 mg/dL (7-18); BUN/Creat Ratio 9.3 RATIO (10-20); Calcium,Total 8.9 mg/dL (8.5-10.1); Chloride 112 mmol/L (98-107); Creatinine, Serum 0.86 mg/dL (0.55-1.02); EST Glomerular Filtration Rate 79 mL/min (>60); Est Glom Filt Rate - Afr Amer 96 mL/min (>60); Estimated Creatinine Clearance 64.33 ml/min; Glucose 93 mg/dL (74-106); Potassium 4.1 mmol/L (3.5-5.1); Sodium Level 142 mmol/L (136-145)
--- NOTE | 2019-10-25 15:23 | ED.VIS.GEN ---
History of Present Illness Chief Complaint: Chest Pain Informant: Patient Onset: Days Context: Gradual Onset Timing: Intermittent Narrative: Patient is a 39-year-old female with history of anxiety presenting with 1 week of feeling off and fatigue. She states has had a hard time concentrating. And then for the last 3 days she has had intermittent paresthesias of her bilateral arms. She states it extends from her shoulders to her hands. She denies any associated weakness or dropping items. She is also had chest pain intermittently for the past 2 days. She states the past 2 hours is been constant. It is in the center of her chest. She describes as aching and heavy. It seems to fluctuate in intensity. She also had a [id number] sensation around her bellybutton. Patient notes has had 2 anxiety attacks over the past 2 days. She has had associated nausea and decreased appetite. She denies any urinary symptoms. Her last menstrual period was 2 to 3 weeks ago. She states she is not concerned for . She denies any associated fever or chills. She had normal bowel movements. Past Medical History - Allergies and Home Meds Allergies/Adverse Reactions: Allergies No Known Allergies Allergy (Verified 10/25/19 12:37) Primary Care Physician: Hoda Aleman DO [Primary Care Provider] - Past Medical History: - - Anxiety Surgical History: tonsillectomy, - - D&C, x2, EGD Lives: Spouse/ Significant Other Smoking Status: Never smoker Review of Systems General: Reports: Malaise. Denies: Chills, Fever, Sweats Eyes: Reports: Blurred vision - right. Denies: Visual changes - bilaterally, Diplopia ENT: Denies: Bilateral ear pain, Rhinorrhea, Sore throat Cardiovascular: Reports: Chest pain. Denies: Palpitations Respiratory: Denies: Dyspnea, Cough, Dyspnea on exertion Gastrointestinal: Reports: Abdominal pain - Umbilical, Nausea. Denies: Vomiting, Diarrhea, Melena, Hematochezia Genitourinary: Denies: Dysuria, Hematuria, Frequency Musculoskeletal: Denies: Back pain, Extremity Pain Skin: Denies: Rash, Wounds Neurological: Reports: Parasthesia - Bilateral arms. Denies: Headache, Weakness, Numbness Psych: Reports: Anxiety. Denies: Depression Endocrine: Denies: Polyuria, Polydipsia, Cold intolerance Physical Exam Vital Signs/Narrative: Vital Signs Temp Pulse Resp BP Pulse Ox 10/25/19 14:33 57 L 17 100 10/25/19 12:37 98.3 F 61 17 103/72 100 Inital Vital Signs reviewed: Yes General: Well nourished, Well developed, No Acute Distress Head: Normocephalic, Atraumatic Eyes: Perrl, EOMI ENT: Moist mucous membranes, No rhinorrhea, TM's clear Neck: Supple, Nontender, No lymphadenopathy, No JVD, - - No meningeal signs Cardiovascular: Regular rhythm, No murmurs, Bradycardia Respiratory: No distress, CTA bilaterally, Chest nontender Abdomen: Soft, Nondistended, Normal bowel sounds, Tender - Mild tenderness in the suprapubic/left lower quadrant. Negative for: Guarding, Rebound tenderness Back: Nontender, Normal Inspection. Negative for: CVA tenderness Extremities: Nontender, No edema Skin: Normal color, No rash Neurological: Alert, Oriented x3, Cranial nerves II-XII grossly intact, Normal Strength, Normal Sensation, Normal Gait, - - Subjective paresthesias of the bilateral upper extremities diffusely. Negative for: Confused, Disoriented, Weakness Psychological: Normal affect, Normal Mood Diagnostic/Tx/Re-eval Chest X-Ray - ED: 1 View, Read by ED Physician, Read by Radiologist, No Acute Disease Clinical Impression(s) from Imaging Studies Chest X-Ray 10/25/19 14:10 IMPRESSION: Normal x-ray examination of the chest. Electronically Signed: Asif Sykes MD at 16:25 EST , Service support , Abdomen/Pelvis CT 10/25/19 16:41 IMPRESSION: There is no definite acute abnormality. Stable hepatomegaly. Moderate to marked fecal retention. 2.7 cm right ovarian cyst. Electronically Signed: Asif Sykes MD at 17:24 EST , Service support , Laboratory Data 10/25/19 10/25/19 10/25/19 14:29 14:29 14:29 WBC 6.9 RBC 4.36 Hgb 13.8 Hct 41.8 MCV 95.9 MCH 31.7 MCHC 33.0 RDW Std Deviation 42.7 RDW Coeff of Andrés 12.1 Plt Count 266 MPV 10.2 Immature Gran % (Auto) 0.300 Neut % (Auto) 63.4 Lymph % (Auto) 30.3 [place] % (Auto) 4.9 Eos % (Auto) 0.4 Baso % (Auto) 0.7 Absolute Neuts (auto) 4.4 Absolute Lymphs (auto) 2.09 Nucleated RBC % 0 Sodium 142 Cancelled Potassium 4.1 Cancelled Chloride 112 H Cancelled Carbon Dioxide 25.0 Cancelled Anion Gap 5 Cancelled BUN 8 Cancelled Creatinine 0.86 Cancelled Estim Creat Clear Calc 64.33 Est GFR (MDRD) Af Amer 96 Cancelled Est GFR (MDRD) Non-Af 79 Cancelled BUN/Creatinine Ratio 9.3 L Cancelled Glucose 93 Cancelled Calcium 8.9 Cancelled Total Bilirubin 0.80 Cancelled AST 14 L Cancelled ALT 24 Cancelled Alkaline Phosphatase 60 Cancelled Troponin I < 0.015 Total Protein 7.1 Cancelled Albumin 4.2 Cancelled Globulin 2.9 Cancelled Albumin/Globulin Ratio 1.4 Cancelled Lipase 131 TSH 1.16 Urine Color Urine Clarity Urine pH Ur Specific [place] Urine Protein Urine Glucose (UA) Urine Ketones Urine Occult Blood Urine Nitrite Urine Bilirubin Urine Urobilinogen Ur Leukocyte Esterase Urine RBC Urine WBC Ur Squamous Epith Cells Urine Bacteria Urine Mucus Urine Test 10/25/19 10/25/19 15:25 15:25 WBC RBC Hgb Hct MCV MCH MCHC RDW Std Deviation RDW Coeff of Andrés Plt Count MPV Immature Gran % (Auto) Neut % (Auto) Lymph % (Auto) [place] % (Auto) Eos % (Auto) Baso % (Auto) Absolute Neuts (auto) Absolute Lymphs (auto) Nucleated RBC % Sodium Potassium Chloride Carbon Dioxide Anion Gap BUN Creatinine Estim Creat Clear Calc Est GFR (MDRD) Af Amer Est GFR (MDRD) Non-Af BUN/Creatinine Ratio Glucose Calcium Total Bilirubin AST ALT Alkaline Phosphatase Troponin I Total Protein Albumin Globulin Albumin/Globulin Ratio Lipase TSH Urine Color Yellow Urine Clarity Clear Urine pH 7.0 Ur Specific [place] 1.005 Urine Protein Negative Urine Glucose (UA) Normal Urine Ketones Negative Urine Occult Blood Negative Urine Nitrite Negative Urine Bilirubin Negative Urine Urobilinogen Normal Ur Leukocyte Esterase Negative Urine RBC 0 SEEN Urine WBC 0 SEEN Ur Squamous Epith Cells 0-5 SEEN Urine Bacteria 0 SEEN Urine Mucus 0 SEEN Urine Test Negative - Rhythm Strip Rhythm Strip: Sinus bradycardia Rate: 57 Ectopy: None - EKG Initial EKG Interpretation: Sinus Bradycardia, - - Sinus bradycardia at a rate of 57 Normal intervals Normal axis Normal ST segments QTc 393 - Medical Decision Making Patient is evaluated for consultation of symptoms including increased anxiety, chest pain as well as paresthesias of her bilateral arms. She appears nontoxic in no acute distress. Her vital signs are normal. She is PE RC negative. She has normal neurologic exam. She is not having significant electrolyte abnormality to explain her symptoms. Her TSH is normal. On exam patient does have tenderness in her left lower quadrant repeatedly. I did obtain a CT of the abdomen pelvis for further evaluation of this. The CT shows moderate to severe fecal retention. This is likely the cause of the distention I am feeling and her abdominal pain. Patient will be started on MiraLAX for this. She will follow-up outpatient for further evaluation and treatment of her symptoms. It is possible this is all related to her anxiety. I do not think she requires emergent inpatient treatment at this time. I do not suspect a stroke and I do not think a head CT was indicated today. Patient is counseled on signs and symptoms requiring return to the emergency room. Patient verbalizes agreement and understand this plan. Patient discharged home in stable and improved condition. ED Disposition - Plan for ED Patient: Disposition: Home or Assisted Living Diagnosis: Chest pain, Constipation, Paresthesias Instructions: CONSTIPATION (Adult), CHEST PAIN, Uncertain Cause, Paraesthesias Prescriptions: Polyethylene Glycol 3350 [Miralax] 17 gm PO DAILY 7 Days #119 powder Prescription Printed Referrals: Hoda Aleman DO [Primary Care Provider] - Additional Instructions: The exact cause of your symptoms not found today however I do think you are safe for outpatient follow-up with your primary care doctor for further evaluation.
[2019-10-25 15:28] VITALS: BP 94/62; PULSE 49; RESP 15; O2SAT 100
[2019-10-25] MEDS: 0.9% Normal Saline 1,000 ML 999 ML IV (15:28)
[2019-10-25 15:36] LABS: Bacteria 0 SEEN /hpf (None Seen); Mucous, Urine 0 SEEN /hpf (<or=2+); Red Blood Cells-Urine 0 SEEN /hpf (0-5); White Blood Cells 0 SEEN /hpf (0-5)
[2019-10-25 15:51] LABS: Color, Urine Yellow (Yellow); Glucose, Dipstick Normal (Normal); Ketone-Dipstick Negative (Negative); Leukocyte Esterase-Dipstick Negative /ul (Negative); Nitrite-Dipstick Negative (Negative); Occult Blood-Urine Negative /ul (Negative); Protein-Dipstick Negative (Negative); Specific Gravity, Urine 1.005 (1.002-1.030); Urine Bilirubin Dipstick Negative (Negative); Urine Clarity Clear (Clear); Urine Urobilinogen Normal (Normal)
[2019-10-25 15:52] LABS: ALB/GLOB Ratio 1.4 RATIO (0.9-2.4); AST(SGOT) 14 U/L (15-37); Alanine Aminotransfer ALT/SGPT 24 U/L (13-56); Albumin, Serum 4.2 g/dL (3.2-5.0); Alkaline Phosphatase 60 U/L (45-117); Globulin 2.9 g/dL (2.2-4.2); Protein, Total 7.1 g/dL (6.4-8.2)
[2019-10-25 15:55] LABS: Internal QC Validated? YES +Cl - CLEAR BKGD; Pregnancy, Urine Negative Negative
[2019-10-25 16:03] LABS: Lipase 131 U/L (73-393); Thyroid Stim Hormone (TSH) 1.16 uIU/mL (0.358-3.74)
[2019-10-25 16:09] VITALS: BP 101/71; PULSE 49; RESP 18; O2SAT 100
[2019-10-25 16:12] LABS: Squamous Epithelial Cells - UA 0-5 SEEN /hpf (5-10)
--- NOTE | 2019-10-25 16:41 | CT_ITS ---
STUDY: CT ABDOMEN AND PELVIS WITHOUT CONTRAST REASON FOR EXAM: Female, 39 years old. LLQ PAIN RADIATION DOSAGE (If Supplied By Facility): CTDIvol = ( 13.64 ) mGy, DLP = ( 346.53 ) mGycm TECHNIQUE: Transaxial images were obtained from the dome of the diaphragm to the symphysis pubis without oral contrast, and without intravenous contrast. Sagittal and coronal images were reconstructed. Individualized dose optimization techniques were used for this CT. COMPARISON: 05/09/2016 FINDINGS: The visualized lung bases are unremarkable. The visualized portions of the heart are within normal limits. There is hepatomegaly with diffuse hepatic enlargement. No focal liver abnormalities. The appearance of the liver stable since prior study. Normal gallbladder and extrahepatic biliary system. Normal spleen. Normal pancreas. Normal bilateral adrenal glands. Normal right kidney. Normal left kidney. No definite renal or ureteral stones are seen. There is no hydronephrosis on either side. Evaluation of the GI tract is limited by absence of oral contrast. Cannot exclude stomach wall thickening. No dilated loops of bowel or evidence for obstruction. Cannot exclude segmental thickening of the sparks of the small or large bowel. Cannot exclude enteritis or colitis. Moderate to marked diffuse fecal retention. Appendix within normal limits. Normal abdominal aorta. Normal inferior vena cava. Normal retroperitoneum. Normal urinary bladder. Normal visualized uterus. There is a 2.7 cm right ovarian cyst. There is stable 3.1 cm nabothian cyst. Normal abdominal wall. Normal osseous structures. CT/Abdomen/Pelvis W IV Cont ONLY IMPRESSION: There is no definite acute abnormality. Stable hepatomegaly. Moderate to marked fecal retention. 2.7 cm right ovarian cyst. Electronically Signed: Asif Sykes MD at 17:24 EST , Service support ,
[2019-10-25 17:09] VITALS: BP 111/74; PULSE 58; RESP 16; O2SAT 100
[2019-10-25 18:06] VITALS: BP 127/78; PULSE 97; RESP 18; O2SAT 98
== END 2019-10-25 18:06 | disposition home or self-care (01) ==
PROVIDERS: Emergency Provider Emergency Medicine; Family Provider Internal Medicine; PCP Internal Medicine
DX: R07.9 Chest pain, unspecified (principal); K59.00 Constipation, unspecified; R20.2 Paresthesia of skin; N83.201 Unspecified ovarian cyst, right side
CPT/HCPCS: 71045; 74177; 80053; 81001; 81025; 83690; 84443; 84484; 85025; 93005; 96360; 96361; 99284; J7030; Q9967; A4216

== ENCOUNTER → 2019-12-17 16:49 | Outpatient (CLI) | payer OTHER, SELFPAY ==
--- NOTE | 2019-12-17 16:53 | RAD_ITS ---
STUDY: X-RAY - ABDOMEN/PELVIS REASON FOR EXAM: Female, 39 years old. Lower abdominal pain. Follow-up to CT for constipation left lower quadrant pain TECHNIQUE: Two AP supine views of the abdomen and pelvis. COMPARISON: CT of the abdomen and pelvis, October 25, 2019. FINDINGS: Normal visualized lung bases. There is diffuse gaseous distention of large and small bowel loops with paucity of rectal air. Ileus versus distal obstruction. There is no demonstrated free abdominal air. The visualized liver, spleen and kidneys are grossly normal in size and morphology. Normal soft tissue structures. Normal visualized osseous structures. RAD/Abdomen Single View IMPRESSION: Ileus versus distal colonic obstruction. Electronically Signed: Jonny Ren DO at 16:38 EST Tel [phone], Service support ,
== END ==
PROVIDERS: PCP Internal Medicine; Referring Provider Internal Medicine; Visit Provider Internal Medicine
DX: K59.00 Constipation, unspecified (principal)
CPT/HCPCS: 74018

== ENCOUNTER 2019-12-19 16:55 | Emergency (ER) | payer OTHER, SELFPAY ==
[2019-12-19 16:57] VITALS: BP 119/77; PULSE 76; RESP 16; TEMP 36.1; O2SAT 99; BMI 21.4
--- NOTE | 2019-12-19 17:08 | CT_ITS ---
STUDY: CT ABDOMEN AND PELVIS WITHOUT CONTRAST REASON FOR EXAM: Female, 39 years old. ABD PAIN, HX KS TECHNIQUE: Transaxial images were obtained from the dome of the diaphragm to the symphysis pubis without oral contrast, and without intravenous contrast. Sagittal and coronal images were reconstructed. Individualized dose optimization techniques were used for this CT. COMPARISON: 10/25/2019. FINDINGS: The visualized lung bases are unremarkable. The visualized portions of the heart are within normal limits. Normal liver. Normal gallbladder and extrahepatic biliary system. Normal spleen. Normal pancreas. Normal bilateral adrenal glands. There is a single small nonobstructing right upper pole stone measuring 2 mm. No hydronephrosis is seen on either side. Normal visualized stomach. Normal small intestine. Normal colon. The appendix is visualized and appears normal. There is a large rectal gas and stool burden. Anterior to the rectum within the right pelvis and posterior to the uterus is a hypoechoic structure measuring at least 3.1 x 1.9 cm. It is poorly characterized and appears grossly stable compared to prior. Normal abdominal aorta. Normal inferior vena cava. Normal retroperitoneum. Normal urinary bladder. Normal visualized uterus. Normal abdominal wall. Normal osseous structures. CT/Abdomen/Pelvis without Cont IMPRESSION: Normal appendix. 2 mm nonobstructing right upper pole renal stone. Reidentified but poorly characterized hypoechoic structure within the deep pelvis representing a large nabothian cyst. Large colonic stool and gas burden. Electronically Signed: Butch Birch, at 19:15 EST Tel , Service support ,
--- NOTE | 2019-12-19 17:09 | ED.VISSUMM ---
- ER Visit Summary Date of Service: 12/19/19 Chief Complaint: Abdominal pain History of Present Illness: The patient is a 39 F who presents with abdominal pain. She has had this pain for about 1 month. It stabbing all over. She felt nauseous without vomiting. No diarrhea. Last bowel movement was today. No urinary symptoms. She was seen here at the beginning of October and had an x-ray that showed some constipation so she was given a laxative. She had a follow-up x-ray done 2 days ago and there was concern for ileus versus distal colonic obstruction so her doctor sent her here today. Physical Examination: Vital signs reviewed. HEENT exam unremarkable. Heart is regular rate and rhythm without murmurs. Lungs are clear to auscultation. Abdomen is soft with mild diffuse tenderness. Extremities reveal no edema. Skin exam normal. Neurologic exam normal. Test Results: Laboratory studies unremarkable. CAT scan with a large colonic stool burden with no evidence of obstruction or ileus Emergency Department Course and Treatment: Patient declined any pain medications. She does have a large colonic stool burden. I do not see any evidence of obstruction. I will give the patient stool softeners at home. She will increase hydration. She is going to follow-up with her PCP to let her know the results. She may need GI consultation with a colonoscopy if her symptoms persist. Treatment Plan: [] Disposition: Discharge Impression: Constipation This note was generated with Nevigo dictation software. It may contain incorrect words, spelling, and punctuation that were not noted in review of the chart prior to signing ED Disposition - Plan for ED Patient: Disposition: Home or Assisted Living Instructions: CONSTIPATION (Adult) Prescriptions: Docusate Sodium [Colace] 100 mg PO DAILY #30 cap Transmission Status: Pending to [id number] Referrals: Hoda Aleman DO [Primary Care Provider] - Additional Instructions: Your prescription was electronically transmitted to [facility]
[2019-12-19 17:43] LABS: Absolute Lymphocyte Count 2.84 X10^3/uL (0.83-4.51); Absolute Neutrophil Count 4.4 X10^3/uL (2.0-7.7); Basophil# 0.05 X10^3/uL; Basophil% 0.6 % (0-1); Eosinophil# 0.06 X10^3/uL; Eosinophils% 0.8 % (0-5); Hematocrit 40.3 % (37-47); Hemoglobin 13.5 g/dL (12.0-15.0); Lymphocyte # 2.84 X10^3/ul (4.0); Lymphocyte % 36.3 % (19-41); Mean Corp Hgb Conc 33.5 g/dL (32-36); Mean Corpuscular Hgb 31.7 pg (27.0-32.0); Mean Corpuscular Volume 94.6 fL (81-99); Mean Platelet Vol. 10.3 fl (6.2-12.0); Monocyte# 0.44 X10^3/uL; Monocyte% 5.6 % (0-10); NRBC Flagged by Analyzer 0 % (0-5); Neutrophil % 56.3 % (47-70); Platelet Count 287 K/mm3 (150-450); RBC Distribution Width SD 41.5 fl (35.1-43.9); Red Blood Count 4.26 M/mm3 (4.2-5.4); White Blood Count 7.8 K/mm3 (4.4-11.0)
[2019-12-19 18:07] LABS: Internal QC Validated? YES +Cl - CLEAR BKGD; Pregnancy, Serum, hCG Quali. NEGATIVE Negative
[2019-12-19 18:09] LABS: ALB/GLOB Ratio 1.2 RATIO (0.9-2.4); AST(SGOT) 18 U/L (15-37); Alanine Aminotransfer ALT/SGPT 31 U/L (13-56); Alkaline Phosphatase 68 U/L (45-117); Anion Gap 6 (5-15); BUN 17 mg/dL (7-18); BUN/Creat Ratio 18.1 RATIO (10-20); Chloride 108 mmol/L (98-107); Creatinine, Serum 0.94 mg/dL (0.55-1.02); EST Glomerular Filtration Rate 71 mL/min (>60); Est Glom Filt Rate - Afr Amer 86 mL/min (>60); Estimated Creatinine Clearance 58.86 ml/min; Globulin 3.2 g/dL (2.2-4.2); Glucose 89 mg/dL (74-106); Lipase 179 U/L (73-393); Potassium 4.1 mmol/L (3.5-5.1); Protein, Total 7.2 g/dL (6.4-8.2); Sodium Level 139 mmol/L (136-145)
[2019-12-19 20:10] VITALS: PULSE 71; RESP 18; O2SAT 98
--- NOTE | 2019-12-19 20:10 | ED.RN ---
THIS NURSE REVIEWED D/C INSTRUCTIONS WITH PT. PT VERBALIZED UNDERSTANDING OF INSTRUCTIONS. IV D/C. IV CATHETER INTACT. PT TOLERATED WELL. PT DENIES FURTHER NEEDS OR QUESTIONS AT THIS TIME
== END 2019-12-19 20:11 | disposition home or self-care (01) ==
PROVIDERS: Emergency Provider Emergency Medicine; PCP Internal Medicine
DX: K59.00 Constipation, unspecified (principal); F41.9 Anxiety disorder, unspecified; Z79.899 Other long term (current) drug therapy
CPT/HCPCS: 74176; 80053; 83690; 84703; 85025; 99283; A4216

== ENCOUNTER → 2019-12-26 17:01 | Outpatient (CLI) | payer OTHER, SELFPAY ==
[2019-12-19 16:57] VITALS: BMI 21.4
--- NOTE | 2019-12-26 17:10 | RAD_ITS ---
STUDY: X-RAY - ACUTE ABDOMINAL SERIES REASON FOR EXAM: Female, 39 years old. ABDOMINAL PAIN WITH CONSTIPATION TECHNIQUE: Single view of the chest. Supine and upright, 2 view(s) of the abdomen were obtained. COMPARISON: Prior abdominal radiographs of December 17, 2019 FINDINGS: Bilateral nipple shadows. The lungs are clear and expanded. Normal size heart. Normal mediastinum and kody. Normal visualized pulmonary arteries. Normal visualized aortic arch and descending thoracic aorta. Diffuse increased gastric and small bowel gas. Increased gas and stool present in the colon. Stool present to the level of the distal colon. The soft tissue structures of the abdomen and pelvis are unremarkable. Normal visualized osseous structures. RAD/Acute Abdomen Inc Chest IMPRESSION: Diffuse increased bowel gas in the stomach, small bowel and throughout the colon with an increase in solid stool consistent with constipation/ileus. Electronically Signed: Terra Christine MD at 15:45 EST , Service support ,
== END ==
PROVIDERS: PCP Internal Medicine; Referring Provider Internal Medicine; Visit Provider Internal Medicine
DX: R10.84 Generalized abdominal pain (principal)
CPT/HCPCS: 74022

== ENCOUNTER → 2020-01-02 16:50 | Outpatient (CLI) | payer OTHER, SELFPAY ==
[2019-12-19 16:57] VITALS: BMI 21.4
--- NOTE | 2020-01-02 16:55 | RAD_ITS ---
STUDY: X-RAY - ABDOMEN/PELVIS REASON FOR EXAM: Female, 39 years old. CONSTIPATION, LOWER ABDOMINAL PAIN TECHNIQUE: Two AP supine views of the abdomen and pelvis. COMPARISON: Prior study of 12/26/2019 FINDINGS: Normal visualized lung bases. There is a moderate amount of colonic gas to the level of the rectosigmoid. Several nondistended loops of air-filled small bowel are seen in the mid abdomen. There is no demonstrated free abdominal air. The visualized liver, spleen and kidneys are grossly normal in size and morphology. Normal soft tissue structures. Normal visualized osseous structures. RAD/Abdomen Single View IMPRESSION: Moderate amount of colonic gas to the level of the rectosigmoid. The amount of colonic gas is increased in the interval. No colonic stool is seen. Several nondistended loops of air-filled small bowel are seen in the mid abdomen. This is similar to the previous study. Electronically Signed: Abel García MD at 19:35 EDT , Service support ,
== END ==
PROVIDERS: PCP Internal Medicine; Referring Provider Internal Medicine; Visit Provider Internal Medicine
DX: K59.00 Constipation, unspecified (principal)
CPT/HCPCS: 74018

== ENCOUNTER → 2020-07-08 17:01 | Outpatient (CLI) | payer OTHER, SELFPAY ==
[2020-07-03 09:43] VITALS: BMI 21.4
== END ==
PROVIDERS: PCP Internal Medicine; Referring Provider Clinical Nurse Specialist; Visit Provider Clinical Nurse Specialist
DX: Z11.59 Encounter for screening for other viral diseases (principal)
CPT/HCPCS: 87635; C9803; U0003

== ENCOUNTER → 2020-07-24 16:28 | Outpatient (CLI) | payer OTHER, SELFPAY ==
[2020-07-03 09:43] VITALS: BMI 21.4
--- NOTE | 2020-07-24 16:30 | RAD_ITS ---
STUDY: X-RAY - ABDOMEN/PELVIS REASON FOR EXAM: Female, 39 years old. CONSTIPATION/ ABD BLOATING -- COLONIC TRANSIT TEST TECHNIQUE: 2 views. Sitzmarks study COMPARISON: None. FINDINGS: Day 1 x-ray demonstrates 10 Sitzmarks marker in the descending colon and sigmoid colon and rectum. Day 3 study demonstrates 1 Sitzmarks marker in the sigmoid colon. Normal visualized lung bases. There is an unremarkable bowel gas pattern. There is no demonstrated free abdominal air. The visualized liver, spleen and kidneys are grossly normal in size and morphology. Normal soft tissue structures. Normal visualized osseous structures. RAD/Colonic Trans GI/w Mul Image IMPRESSION: Normal x-ray examination of the abdomen and pelvis. Day 1 x-ray demonstrates 10 Sitzmarks marker in the descending colon and sigmoid colon and rectum. Day 3 study demonstrates 1 Sitzmarks marker in the sigmoid colon. Electronically Signed: Jimmy Macias, at 10:24 EDT Tel , Service support ,
== END ==
PROVIDERS: PCP Internal Medicine; Referring Provider Internal Medicine Gastroenterology; Visit Provider Internal Medicine Gastroenterology
DX: K59.00 Constipation, unspecified (principal); R14.0 Abdominal distension (gaseous)
CPT/HCPCS: 74240; 74248

== ENCOUNTER → 2020-07-28 15:21 | Outpatient (CLI) | payer OTHER, SELFPAY ==
[2020-07-03 09:43] VITALS: BMI 21.4
== END ==
PROVIDERS: PCP Internal Medicine; Referring Provider Internal Medicine Gastroenterology; Visit Provider Internal Medicine Gastroenterology
DX: K59.00 Constipation, unspecified (principal); R14.0 Abdominal distension (gaseous)

== ENCOUNTER → 2020-07-30 15:48 | Outpatient (CLI) | payer OTHER, SELFPAY ==
[2020-07-03 09:43] VITALS: BMI 21.4
== END ==
PROVIDERS: PCP Internal Medicine; Referring Provider Internal Medicine Gastroenterology; Visit Provider Internal Medicine Gastroenterology
DX: K59.00 Constipation, unspecified (principal); R41.0 Disorientation, unspecified

== ENCOUNTER → 2020-09-08 16:30 | Outpatient (CLI) | payer OTHER, SELFPAY ==
[2020-07-03 09:43] VITALS: BMI 21.4
--- NOTE | 2020-09-08 16:34 | CT_ITS ---
STUDY: CT BRAIN WITHOUT CONTRAST REASON FOR EXAM: Female, 40 years old. HEADACHE X 11 DAYS STRAIGHT RADIATION DOSAGE (If Supplied By Facility): CTDIvol = ( 44.99 ) mGy, DLP = ( 745.49 ) mGycm TECHNIQUE: Transaxial CT imaging of the brain was performed without administration of intravenous contrast material. Individualized dose optimization techniques were used for this CT. COMPARISON: MRI 08/11/2019 FINDINGS: Normal soft tissue structures. Normal calvarium. Normal size ventricles and extra-axial spaces for the patient''s age. Normal white matter tracts of the cerebral hemispheres. Normal basal ganglia and thalami. Normal brainstem. Normal cerebellum. There is no intracranial hemorrhage. There are no findings of an acute ischemic infarction. Normal visualized paranasal sinuses. CT/Brain/Head without Contrast IMPRESSION: Normal unenhanced CT scan of the brain. Electronically Signed: Jean Ocasio MD at 17:08 EST Tel , Service support ,
--- NOTE | 2020-09-08 16:43 | RAD_ITS ---
STUDY: X-RAY - CERVICAL SPINE REASON FOR EXAM: Female, 40 years old. NO INJURY. HEADACHE FOR PAST 11 DAYS. PAIN GOING DOWN NECK INTO UPPER BACK NOW TECHNIQUE: 3 view(s) of the cervical spine were obtained. COMPARISON: None FINDINGS: Normal anterior atlantoaxial articulation. Normal odontoid process. Normal cervical lordosis. Normal vertebral bodies and endplates. Focal disc space narrowing and osteophyte formation at C5/C6 with 2 mm retrolisthesis of C5 on C6. Normal visualized intervertebral neuroforamina. The soft tissue structures are unremarkable. RAD/Cerv Spine 2 or 3 Views IMPRESSION: Focal degenerative disc disease at C5/C6 with 2 mm retrolisthesis of C5 on C6. Electronically Signed: Jean Ocasio MD at 17:10 EST Tel , Service support ,
== END ==
PROVIDERS: PCP Internal Medicine; Referring Provider Internal Medicine; Visit Provider Internal Medicine
DX: R51.9 Headache, unspecified (principal)
CPT/HCPCS: 70450; 72040

== ENCOUNTER 2020-11-04 13:49 | Emergency (ER) | payer OTHER, SELFPAY ==
[2020-07-03 09:43] VITALS: BMI 21.4
[2020-11-04 13:49] VITALS: BP 115/75; PULSE 75; RESP 16; TEMP 36.6; O2SAT 97; BMI 21.4
--- NOTE | 2020-11-04 14:30 | ED.VIS.GEN ---
History of Present Illness Chief Complaint: Cold Sx Narrative: This patient is a 40-year-old female who complains of some mild burning in her chest. Her symptoms began 3 to 4 days ago. She has a mild occasional cough. No sputum. No fevers. She does have some rhinorrhea and sore throat. No congestion vomiting diarrhea. She occasionally feels mildly short of breath but notes that this may just be related to her anxiety. She also complains of some myalgias. Past Medical History - Allergies and Home Meds Allergies/Adverse Reactions: Allergies No Known Allergies Allergy (Verified 11/04/20 13:52) Primary Care Physician: Hoda Aleman DO [Primary Care Provider] - Past Medical History: - - Anxiety Surgical History: tonsillectomy, - Smoking Status: Former smoker Review of Systems All systems negative except as indicated General: Denies: Fever Eyes: Denies: Visual changes - bilaterally ENT: Reports: Rhinorrhea, Sore throat. Denies: Bilateral ear pain Cardiovascular: Reports: Chest pain Respiratory: Reports: Dyspnea, Cough Gastrointestinal: Denies: Abdominal pain, Nausea, Vomiting, Diarrhea Musculoskeletal: Reports: Myalgias Skin: Denies: Rash Neurological: Denies: Headache Allergy: Denies: Uticaria Physical Exam Vital Signs/Narrative: Vital Signs Temp Pulse Resp BP Pulse Ox 11/04/20 13:49 97.9 F 75 16 115/75 97 Inital Vital Signs reviewed: Yes General: Well nourished, Well developed Head: Normocephalic Eyes: EOMI ENT: Moist mucous membranes Neck: Supple Cardiovascular: Regular rate, Regular rhythm Respiratory: No distress, CTA bilaterally. Negative for: Rales, Rhonchi, Wheezing Abdomen: Soft Skin: Normal color Neurological: Alert Psychological: Normal affect Diagnostic/Tx/Re-eval Impressions Chest X-Ray 11/04/20 14:32 IMPRESSION: Normal x-ray examination of the chest. Electronically Signed: Ramirez Arnold, at 14:49 EST , Service support , 11/04/20 14:32 CXR [Chest 1 View (Portable)] [RAD] Stat 11/04/20 14:39 Mucosa - Nose SARS-CoV-2 Antigen (Rapid) - Final - Medical Decision Making Covid is negative. Chest x-ray read by radiology as normal. Patient advised on supportive care and was discharged home. ED Disposition - Plan for ED Patient: Disposition: Home or Assisted Living Diagnosis: Viral syndrome Instructions: ED Viral Syndrome (Adult) Referrals: Hoda Aleman DO [Primary Care Provider] -
--- NOTE | 2020-11-04 14:32 | RAD_ITS ---
STUDY: X-RAY CHEST REASON FOR EXAM: Female, 40 years old. Cough, runny nose TECHNIQUE: Single AP portable view of the chest. COMPARISON: Comparison is made with prior study of 12/26/2019. FINDINGS: Hyperinflation. There is no demonstrated pleural abnormality. Normal size heart. Normal mediastinum and kody. Normal visualized pulmonary arteries. Normal visualized aortic arch and descending thoracic aorta. Normal visualized thoracic spine. Normal visualized ribs, clavicles, and shoulders. There is no demonstrated abnormality of the visualized soft tissue structures of the upper abdomen. RAD/Chest 1 View (Portable) IMPRESSION: Normal x-ray examination of the chest. Electronically Signed: Ramirez Arnold, at 14:49 EST , Service support ,
== END 2020-11-04 15:49 | disposition home or self-care (01) ==
PROVIDERS: Emergency Provider Emergency Medicine; PCP Internal Medicine
DX: B34.9 Viral infection, unspecified (principal); F41.9 Anxiety disorder, unspecified; Z87.891 Personal history of nicotine dependence
CPT/HCPCS: 71045; 87426; 99283

== ENCOUNTER → 2020-11-07 16:17 | Outpatient (CLI) | payer OTHER, SELFPAY ==
[2020-11-04 13:49] VITALS: BMI 21.4
--- NOTE | 2020-11-07 16:35 | CT_ITS ---
STUDY: CTA CHEST REASON FOR EXAM: Female, 40 years old. Acute substernal chest pain, possible PE RADIATION DOSAGE (If Supplied By Facility): CTDIvol = ( 3.91 ) mGy, DLP = ( 117.88 ) mGycm TECHNIQUE: The examination was performed with the intravenous administration of IV 75mL Isovue-370. Post-processing of the angiographic images was performed, with multiplanar reformation and 3D reconstruction. Individualized dose optimization techniques were used for this CT. COMPARISON: Previous chest x-rays FINDINGS: Normal enhancement of the main pulmonary artery and right and left pulmonary arteries. Normal enhancement of the bilateral peripheral pulmonary arteries. There is no demonstrated pulmonary embolism. Normal thoracic aorta and visualized great vessels. There is no demonstrated aortic dissection. Normal heart and pericardium. Normal mediastinum. Normal hilar regions. Normal visualized trachea and bronchi. The lungs are well expanded. Normal pulmonary parenchyma. Normal pleura. Normal chest wall structures. Normal osseous structures. Normal visualized upper abdomen. CT/CTA Chest W/WO Contrast IMPRESSION: Normal CTA chest examination, without a demonstrated pulmonary embolism or arterial dissection. Electronically Signed: Michael Osman MD at 16:57 EST , Service support ,
== END ==
PROVIDERS: PCP Internal Medicine; Referring Provider Internal Medicine; Visit Provider Internal Medicine
DX: R07.89 Other chest pain (principal)
CPT/HCPCS: 71275; Q9967

== ENCOUNTER 2020-12-10 16:30 | Outpatient (RCR) | payer OTHER, SELFPAY ==
[2020-07-03 09:43] VITALS: BMI 21.4
--- NOTE | 2020-11-04 12:09 | HP.PTEVAL_ITS ---
Patient's Visit Information NAM MELGOZA is a 40 year old F referred to Physical Therapy by Dr. Hoda Aleman DO with a diagnosis of CEERVICAL RADICULOPATHY ,MUSCLE SPAMS ,GRACE. Date of Evaluation: 11/03/20 Physical Therapist: Gaston Bates, PT, Cert MDT, OCS - Visit Plan Frequency: 2x /Week Duration: 4 Weeks Plan: PT INTERVETIONS MANUAL THERAPY -STM/MOBILIZATION C1-7 ,CERVICAL TRACTION/OA/PA MOBS,ALISON EX'S,MODALTIES-ICTXPOSTURAL EX'S - Subjective This 40 y/o female presents to physical therapy with cervical radiculopathy and GRACE. Patient has GRACE past 3 months contsant GRACE especially in morning. Patient has cervical pain paraspinals and upper back traps. Patient GRACE will causes symptoms worse with GRACE. Denies parathesia ,occassionally tingling in arms. Aggraveting sitting on computer ,sleeping . Alleviating factors stretching ,muscle relaxers stopped,heat . Denies denies tinnutis/nausea. CATSCAN -. x-rays DDD 2mm retothesis. Current symtoms no GRACE just soreness. Patient symptoms affects ADL's and housework tasks and job demnads. 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 NEURO: intact ,denies parathesia/tingling reflexes 2/3 C5-6-7,mytomes. PALAPTION: tender UT /levator left > right,right OA > left. AROM:BUE WFL. MMT: 4/5. CERVICAL ROM: flexion mod loss,extension WNL ,rotation min loss,lateral flexion mod loss,protrustion WFL pain ,retraction min loss. UPPER CERVICAL SPINE: MOD tight right,left min,mod loss. LATERAL GLIDES: mild tightness C3-7 - Special Tests C/S Radiculapathy - Left Upper limb tension test: Negative C/S Radiculapathy - Right Upper limb tension test: Negative C/S Radiculapathy - Left Spurlings: Negative C/S Radiculapathy - Right Spurlings: Negative C/S Radiculapathy - Right Cervical distraction: Negative Sharp Gurdeep: Negative Vertebral Artery Test: Negative Alar Ligament Test: Negative Cervical Sitting: Protrusion - Mechanical Response: No effect Cervical Sitting: Protrusion - Symptoms During Testing: Increases Cervical Sitting: Protrusion - Symptoms After Testing: Worse Cervical Sitting: Retraction - Mechanical Response: No effect Cervical Sitting: Retraction - Symptoms During Testing: Decreases Cervical Sitting: Retraction - Symptoms After Testing: No better Cerv Sitting: Retraction-Extension - Symptoms During Testing: No effect Cerv Sitting: Retraction-Extension - Symptoms After Testing: No effect - Goals Goal 1:: Patient to be I with HEP. Goal Time Frame: 4-6 Weeks Goal 2:: Patient to decrease GRACE and cervical symptoms by 50% or > to improve f unction. Goal Time Frame: 4-6 Weeks Goal 3:: Patient to imporove cervical ROM for function of recovery Goal Time Frame: 4-6 Weeks Goal 4:: Patient to improve upper cervical spine ROM to reduce GRACE Goal Time Frame: 4-6 Weeks Goal 5:: Patient to improve neck owestry score by 5 points or > to improve function. Goal Time Frame: 4-6 Weeks - Rehabilitation Potential Physical Therapy Diagnosis: Patient uppers to have uper cervical spine derranagenment with GRACE and tightness of upper cervical spine ,decrease ROM with flexion affects function recovery and sleeping,a thus benifity from skilled PT Rehabilitation Potential: Good - Anticipated Interventions Patient/Client Instruction: Educate patient on: Condition, Plan of Care For the Purpose of:: To decrease pain, To increase ROM, To improve muscle performance and motor function, To improve ability to perform ADL's, To increase tolerance to activity/condition/position, To improve ability of physical actions for home/community/work/leisure, To improve health of tissue, To decrease soft tissue restriction, To increase flexibility/ROM, To improve ability to perform tasks related to life management Therapeutic Exercise to Include: Strength training, Postural training, Flexibilty training, Active ROM For the Purpose of:: To decrease pain, To increase ROM, To improve muscle performance and motor function, To increase tolerance to activity/condition/position, To improve ability of physical actions for home/community/work/leisure, To improve health of tissue, To decrease soft tissue restriction, To increase flexibility/ROM, To reduce risk of recurrence, To improve ability to perform tasks related to life management Manual Therapy Techniques to Include: Mobilization, Soft tissue mobilization Comment: CERVICAL TRACTION/OA MOBS/.AP MOBS,LATERAL GLIDES For the Purpose of:: To decrease pain, To increase ROM, To improve muscle performance and motor function, To increase tolerance to activity/condition/position, To improve health of tissue, To decrease soft tissue restriction, To increase flexibility/ROM TENS: Yes IF ES: Yes Cryotherapy (ice pack, ice massage): Yes Thermo therapy (hot pack): Yes Ultrasound (thermal/non thermal): Yes Intermittent cervical traction: Yes - 15#_20# For the Purpose of:: To decrease pain, To increase ROM, To improve health of tissue, To decrease soft tissue restriction Thank you for the opportunity to evaluate your patient. For Medicare and Medicare HMO plans, please review the plan of care and approve it. It will need to be FAXED BACK to us at [phone] for Medicare purposes. For Medicare only, by signing this I certify the plan of care. Please let me know if there are questions or concerns regarding this plan of care. Physician Signature: Date:
--- NOTE | 2020-12-10 17:13 | HP.PTDCSUM ---
It has been my pleasure to treat NAM MELGOZA referred by Dr. Hoda Aleman DO, with the diagnosis of CEERVICAL RADICULOPATHY ,MUSCLE SPAMS ,GRACE for a total of 7 visit(s). Discharge Date: 12/10/20 Please see the following information for a summary of their discharge status. Subjective: Doing good ..no GRACE Bilateral Neck Pain Intensity (Out of 10): 0 % Improvement: 90 Objective/Function: POSTURE: WFL. PALPATION: UNREMRKABLE. NEURO: INTACT. MMT: 5/5. CERVICAL ROM: WFL Goal 1:: Patient to be I with HEP. Goal Progress: Goal Met Goal 2:: Patient to decrease GRACE and cervical symptoms by 50% or > to improve function. Goal Progress: Goal Met Goal 3:: Patient to imporove cervical ROM for function of recovery Goal Progress: Goal Met Goal 4:: Patient to improve upper cervical spine ROM to reduce GRACE Goal Progress: Goal Met Goal 5:: Patient to improve neck owestry score by 5 points or > to improve function. Goal Progress: Goal Met Plan: D/C If there are questions or concerns regarding this patient's physical therapy, please feel free to call me at [phone]. Thank you for the referral of this patient. Sincerely, Gaston Bates PT, Cert MDT, OCS
== END 2020-12-10 19:00 | disposition home or self-care (01) ==
LOC: PT 16:30
PROVIDERS: PCP Internal Medicine; Referring Provider Internal Medicine; Visit Provider Internal Medicine
DX: M54.12 Radiculopathy, cervical region (principal); M62.838 Other muscle spasm
CPT/HCPCS: 97140; 97161

== ENCOUNTER 2021-05-11 15:59 | Emergency (ER) | payer OTHER, SELFPAY ==
[2021-05-11 16:00] VITALS: BP 109/67; PULSE 61; RESP 18; TEMP 37.1; O2SAT 97; BMI 20.6
[2021-05-11 16:11] VITALS: O2SAT 99
--- NOTE | 2021-05-11 16:11 | EKG12_ITS ---
Test Reason : CP Blood Pressure : / mmHG Vent. Rate : 063 BPM Atrial Rate : 063 BPM P-R Int : 128 ms QRS Dur : 068 ms QT Int : 404 ms P-R-T Axes : 073 052 041 degrees QTc Int : 413 ms Normal sinus rhythm Normal ECG Confirmed by ADDIS HAUSER, GISELL ([id number]), features editor ADOLPH CLEMENTS ([id number]) on 05/13/2021 12:35:44 PM Referred By: [facility] Confirmed By:GISELL MANCINI MD
--- NOTE | 2021-05-11 16:12 | ED.VIS.CHEST ---
HPI History of Present Illness Chief Complaint: Chest Pain Informant: patient Onset/Context/Timing Onset: Hours Activity at onset: sleep and rest Timing: Intermittent Quality: Positive for Pressure Location: Substernal Current Severity: Mild Maximum Severity: Moderate Worsened By: Nothing Relieved By: Nothing Associated Symptoms: Negative for Nausea, Vomiting, Diaphoresis, Dyspnea, Cough, Fever, Lightheadedness, Acid Reflux and Palpitations Narrative Narrative: Is a 40-year-old woman who presents with midsternal chest discomfort that awoke her from sleep this morning. been awakened with chest discomfort from an anxiety attack. She does have history of anxiety and panic attacks. There is no She had no associate symptoms or radiation. She has no history of PE or DVT. She denies leg pain, swelling discoloration. reason for her to be anxious. She states she has never had She denies history of reflux, hiatal hernia or peptic ulcer disease. She does have history of abdominal wall hernia due to . She denies fever, chills night sweats. She denies rhinorrhea, postnasal drainage sore throat. She denies ocular, visual auditory symptoms. She denies GI symptoms. Denies intolerance of food. Prior Similar Symptoms: No Recent Illness/Hospitalization: No CVD Risk Factors: Negative for Hypertension, Diabetes, Hypercholesterolemia, Family History 1' </=55 and Smoking PE Risk Factors: Negative for Recent Travel/Surgery, Recent Immobilization, Prior DVT or PE, Cancer and OCP + Smoking + >/=35 TAD Risk Factors: Negative for Marfan's Syndrome, Hypertension and Family History PFSH PFSH Medical History Anxiety Non-smoker Home Medications ergocalciferol (vitamin D2) 50 mcg (2,000 unit) tablet 2,000 unit PO DAILY 09/12/19 [History Last Taken Unknown] multivitamin 1 tab PO DAILY 09/12/19 [History Last Taken Unknown] fluoxetine 10 mg PO DAILY 12/19/19 [History Last Taken Unknown] Allergy/AdvReac Type Severity Reaction Status Date / Time No Known Allergies Allergy Verified 05/11/21 16:01 Family History Sister Thyroid disorder Diabetes Mother Thyroid disorder Surgical History S/P section S/P D&C (status post dilation and curettage) S/P tonsillectomy Social History (Updated 05/11/21 @ 16:[address] Ilir Jackson MD) household members: children Smoking Status: Never smoker alcohol intake: current alcohol intake frequency: holidays/special occasions only substance use type: does not use ROS ROS ED Constitutional Constitutional ED: Denies chills, fever(s), subjective, sweats or weight loss Eyes Eyes: Denies change in vision or other ENT ENT ED: Denies ear pain, rhinorrhea or sore throat Cardiovascular Cardiovascular: Reports as per HPI; Denies orthopnea, palpitations, paroxysmal nocturnal dyspnea or racing heartbeat Respiratory/Chest Respiratory/Chest: Denies cough, dyspnea, dyspnea on exertion, orthopnea or paroxysmal nocturnal dyspnea Gastrointestinal Gastrointestinal: Denies abdominal pain, constipation, diarrhea, nausea or vomiting Genitourinary Genitourinary ED: Denies dysuria, hematuria or urinary frequency Musculoskeletal Musculoskeletal: Denies arthralgias, back pain, myalgias or neck pain Integumentary Denies rash Neurologic Neurologic: Denies headache(s) or weakness Psychiatric Psychiatric: Denies anxiety or depression Hematologic/Lymphatic Hematologic/Lymphatic: Denies easy bleeding or easy bruising EXAM Physical Exam Const Vital Signs: 05/11/21 16:00 05/11/21 16:11 05/11/21 16:13 Temperature 98.8 F Temperature Source Temporal Pulse Rate 61 60 Respiratory Rate 18 15 Respiratory Effort Normal Blood Pressure 109/67 107/76 Blood Pressure Mean 81 86 Pulse Ox 97 99 100 Oxygen Delivery Method Room Air Room Air Room Air 05/11/21 17:10 Temperature Temperature Source Pulse Rate 60 Respiratory Rate 14 Respiratory Effort Blood Pressure 109/67 Blood Pressure Mean 81 Pulse Ox 98 Oxygen Delivery Method Room Air Positive well nourished and well developed General Appearance ED: well developed and NAD HEENT Reports moist mucous membranes and dry mucous membranes normocephalic and atraumatic; Negative for trauma or tenderness Mouth ED: Yes dry mucous membranes Mouth: dry mucous membranes Eyes PERRL and EOMs intact bilaterally General Eye ED: Negative for pale conjunctiva or scleral icterus Neck No no lymphadenopathy, No supple and no JVD General: Negative for tenderness Chest Wall inspection of chest normal and palpation of chest normal Resp normal respiratory effort and clear to auscultation bilaterally Cardio regular rate, regular rhythm, S1 normal heart sound, S2 normal heart sound and no murmurs GI normal to inspection, nondistended, normoactive bowel sounds and soft to palpation Back/Spine no CVA tenderness and no thoracic nor lumbar tenderness Extremity normal to inspection Extremity Narrative: There is no asymmetry, swelling, discoloration, leg vein distention, palpable cords or tenderness along the distribution of the deep venous system. Neuro oriented x3, CN's II-XII intact bilaterally and no sensory deficits noted Sensorium / Orientation: awake and alert Motor Exam: strength 5/5 throughout Psych mental status grossly normal Skin no rashes or lesions noted and no wounds Heart Score History: Slightly/Non-Suspicious ECG: Normal Age: </= 45 years Risk Factors: No Risk Factors Score: 0 MDM MDM MDM Narrative Medical decision making narrative: Patient is PERC negative. Symptoms the chest pressure awoke her from sleep will obtain EKG, chest x-ray appropriate blood work to evaluate the etiology of her chest pain. This may be due to anxiety versus GI versus cardiac versus pulmonary etiology. Lab Data Attestation: I reviewed the patient's lab results. Lab results narrative: CBC, basic metabolic panel and troponin are normal. Troponin is less than 3.0. Will not need to repeat a 2-hour. Disposition be made after x-ray has been taken and interpreted. Labs: Laboratory Results - last 24 hr 05/11/21 05/11/21 16:10 16:10 WBC 6.9 RBC 4.21 Hgb 13.4 Hct 40.9 MCV 97.1 MCH 31.8 MCHC 32.8 RDW Std Deviation 42.8 RDW Coeff of Andrés 11.9 Plt Count 295 MPV 10.4 Immature Gran % (Auto) 0.300 Neut % (Auto) 64.7 Lymph % (Auto) 24.5 [place] % (Auto) 8.0 Eos % (Auto) 1.8 Baso % (Auto) 0.7 Absolute Neuts (auto) 4.4 Absolute Lymphs (auto) 1.68 Nucleated RBC % 0 Sodium 136 Potassium 3.8 Chloride 106 Carbon Dioxide 25.0 Anion Gap 5 BUN 14 Creatinine 0.92 Estim Creat Clear Calc 59.55 Est GFR (MDRD) Af Amer 88 Est GFR (MDRD) Non-Af 73 BUN/Creatinine Ratio 15.3 Glucose 92 Calcium 8.5 Troponin I High Sens < 3.0 L Radiography Chest X-Ray - ED: 2 View, Read by ED Physician, Heart, Lungs, Mediastinum, Bony Structures and - (The x-ray was interpreted by me. There is no effusion, infiltrate or abnormality to explain patient's chest discomfort.) Diagnostic Testing: Radiology Impression Chest X-Ray 05/11/21 16:55 IMPRESSION: No radiographic evidence of acute cardiopulmonary disease. at 1706 Reported and signed by: Kartik Razo MD Electronically Signed: Kartik Razo MD at 17:05 EDT Tel , Service support , Discharge Plan Triage Chief Complaint: Chest Pain ED Provider: Ilir Jackson Dx/Rx/DC Orders Clinical Impression: Chest pressure Instructions: ED Chest Pain, Noncardiac Prescriptions: No Action ergocalciferol (vitamin D2) 2,000 unit tablet 2,000 unit tablet 2,000 unit PO DAILY RF: 0 multivitamin Tablet 1 tab PO DAILY RF: 0 fluoxetine 10 MG capsule 10 mg PO DAILY RF: 0 Primary Care Provider: Hoda Aleman Referrals: Hoda Aleman DO [Primary Care Provider] - 3-5 Days if not improving Disposition Disposition: Home, Self Care
[2021-05-11 16:13] VITALS: BP 107/76; PULSE 60; RESP 15; O2SAT 100
[2021-05-11] MEDS: Aspirin 81 MG TAB.CHEW 324 MG PO (16:18)
[2021-05-11 16:36] LABS: Absolute Lymphocyte Count 1.68 X10^3/uL (0.83-4.51); Absolute Neutrophil Count 4.4 X10^3/uL (2.0-7.7); Anion Gap 5 (5-15); BUN 14 mg/dL (7-18); BUN/Creat Ratio 15.3 RATIO (10-20); Basophil# 0.05 X10^3/uL; Basophil% 0.7 % (0-1); Calcium,Total 8.5 mg/dL (8.5-10.1); Chloride 106 mmol/L (98-107); Creatinine, Serum 0.92 mg/dL (0.55-1.02); EST Glomerular Filtration Rate 73 mL/min (>60); Eosinophil# 0.12 X10^3/uL; Eosinophils% 1.8 % (0-5); Est Glom Filt Rate - Afr Amer 88 mL/min (>60); Estimated Creatinine Clearance 59.55 ml/min; Glucose 92 mg/dL (74-106); Hematocrit 40.9 % (37-47); Hemoglobin 13.4 g/dL (12.0-15.0); Lymphocyte # 1.68 X10^3/ul (0.83-4.51); Lymphocyte % 24.5 % (19-41); Mean Corp Hgb Conc 32.8 g/dL (32-36); Mean Corpuscular Hgb 31.8 pg (27.0-32.0); Mean Corpuscular Volume 97.1 fL (81-99); Mean Platelet Vol. 10.4 fl (6.2-12.0); Monocyte# 0.55 X10^3/uL; NRBC Flagged by Analyzer 0 % (0-5); Neutrophil # 4.43 X10^3/uL (2.7-7.7); Neutrophil % 64.7 % (47-70); Platelet Count 295 K/mm3 (150-450); Potassium 3.8 mmol/L (3.5-5.1); RBC Distribution Width CV 11.9 % (11.6-14.6); RBC Distribution Width SD 42.8 fl (35.1-43.9); Red Blood Count 4.21 M/mm3 (4.2-5.4); Sodium Level 136 mmol/L (136-145); Troponin-I HS < 3.0 pg/mL (3.0-53.7); White Blood Count 6.9 K/mm3 (4.4-11.0)
--- NOTE | 2021-05-11 16:55 | RAD_ITS ---
HISTORY: chest pain EXAMINATION/TECHNIQUE: XR Chest 2 Views: 2 views COMPARISON: 11/04/20 FINDINGS: LINES/DEVICES: None. LUNGS: No pulmonary consolidation, mass, or edema. No pleural effusion or pneumothorax. MEDIASTINUM AND CARDIOVASCULAR STRUCTURES: Cardiac silhouette not enlarged. Central airways and mediastinal contour are unremarkable. BONES AND SOFT TISSUES: No acute bony abnormalities. RAD/Chest PA and Lateral IMPRESSION: No radiographic evidence of acute cardiopulmonary disease. at 1706 Reported and signed by: Kartik Razo MD Electronically Signed: Kartik Razo MD at 17:05 EDT Tel , Service support ,
[2021-05-11 17:10] VITALS: BP 109/67; PULSE 60; RESP 14; O2SAT 98
[2021-05-11 17:32] VITALS: BP 105/77; PULSE 56; RESP 16; O2SAT 99
== END 2021-05-11 17:33 | disposition home or self-care (01) ==
PROVIDERS: Emergency Provider Emergency Medicine; PCP Internal Medicine
DX: R07.89 Other chest pain (principal)
CPT/HCPCS: 71046; 80048; 84484; 85025; 93005; 99284; A4216

== ENCOUNTER → 2021-05-19 08:17 | Outpatient (CLI) | payer OTHER, SELFPAY ==
[2021-05-11 16:00] VITALS: BMI 20.6
== END ==
PROVIDERS: PCP Internal Medicine; Referring Provider Internal Medicine; Visit Provider Internal Medicine
DX: R00.1 Bradycardia, unspecified (principal)
CPT/HCPCS: 93225; 93226

== ENCOUNTER → 2021-05-21 10:09 | Outpatient (CLI) | payer OTHER, SELFPAY ==
[2021-05-11 16:00] VITALS: BMI 20.6
[2021-05-21 10:39] LABS: D-Dimer Quantitative (DVT/PE) <= 0.27 FEU/ug/m (0.27-0.49)
== END ==
PROVIDERS: PCP Internal Medicine; Visit Provider Internal Medicine
DX: R06.02 Shortness of breath (principal)
CPT/HCPCS: 85379

== ENCOUNTER 2021-11-17 14:25 | Outpatient (CLI) | payer OTHER, SELFPAY ==
[2021-11-17 15:35] LABS: Absolute Lymphocyte Count 2.08 X10^3/uL (0.83-4.51); Absolute Neutrophil Count 5.1 X10^3/uL (2.0-7.7); Basophil# 0.05 X10^3/uL; Basophil% 0.6 % (0-1); Eosinophil# 0.13 X10^3/uL; Eosinophils% 1.6 % (0-5); Hematocrit 37.5 % (37-47); Hemoglobin 12.5 g/dL (12.0-15.0); Lymphocyte # 2.08 X10^3/ul (0.83-4.51); Lymphocyte % 26.2 % (19-41); Mean Corp Hgb Conc 33.3 g/dL (32-36); Mean Corpuscular Volume 95.9 fL (81-99); Mean Platelet Vol. 10.7 fl (6.2-12.0); Monocyte# 0.53 X10^3/uL; Monocyte% 6.7 % (0-10); NRBC Flagged by Analyzer 0 % (0-5); Neutrophil # 5.13 X10^3/uL (2.7-7.7); Neutrophil % 64.6 % (47-70); Platelet Count 268 K/mm3 (150-450); RBC Distribution Width CV 11.9 % (11.6-14.6); RBC Distribution Width SD 41.7 fl (35.1-43.9); Red Blood Count 3.91 M/mm3 (4.2-5.4); White Blood Count 7.9 K/mm3 (4.4-11.0)
[2021-11-17 16:17] LABS: Vitamin B12 337 pg/mL (211-911); Vitamin D,25 Hydroxy 34.9 ng/mL
[2021-11-17 16:18] LABS: Erythrocyte Sedimentation Rate < 1 mm/hr (0-30)
[2021-11-17 16:24] LABS: D-Dimer Quantitative (DVT/PE) < 0.27 FEU/ug/m (0.27-0.49)
[2021-11-17 17:08] LABS: ALB/GLOB Ratio 1.2 RATIO (0.9-2.4); AST(SGOT) 10 U/L (15-37); Alanine Aminotransfer ALT/SGPT 22 U/L (13-56); Albumin, Serum 3.7 g/dL (3.2-5.0); Alkaline Phosphatase 60 U/L (45-117); Anion Gap 5 (5-15); BUN 14 mg/dL (7-18); BUN/Creat Ratio 18.5 RATIO (10-20); CRP < 2.90 mg/L (0.0-3.0); Calcium,Total 8.6 mg/dL (8.5-10.1); Chloride 107 mmol/L (98-107); Creatinine, Serum 0.76 mg/dL (0.55-1.02); EST Glomerular Filtration Rate 90 mL/min (>60); Est Glom Filt Rate - Afr Amer 109 mL/min (>60); Globulin 3.1 g/dL (2.2-4.2); Glucose 98 mg/dL (74-106); Lipase 132 U/L (73-393); Potassium 3.9 mmol/L (3.5-5.1); Protein, Total 6.8 g/dL (6.4-8.2); Sodium Level 137 mmol/L (136-145); Thyroid Stim Hormone (TSH) 0.91 uIU/mL (0.358-3.74); Troponin-I HS < 3 pg/mL (3.0-54.0)
[2021-11-19 21:44] LABS: EBV Acute VCA IgM < 36.0 U/mL (0.0-35.9); EBV-VCA IgG 79.8 U/mL (0.0-17.9)
== END 2021-11-17 23:59 | disposition short-term general hospital (02) ==
PROVIDERS: PCP Internal Medicine; Referring Provider Internal Medicine; Visit Provider Internal Medicine
DX: R06.02 Shortness of breath (principal); R11.0 Nausea; R53.83 Other fatigue
CPT/HCPCS: 36415; 80053; 82306; 82607; 82746; 83690; 84443; 84484; 85025; 85379; 85652; 86140; 86664; 86665

== ENCOUNTER → 2022-04-06 | Outpatient (CLI) | payer OTHER, SELFPAY ==
--- NOTE | 2022-04-06 16:59 | MRI_ITS ---
EXAM: MR HEAD WITHOUT AND WITH INTRAVENOUS CONTRAST CLINICAL INDICATION: BENIGN NEOPLASM OF PITUITARY, headaches TECHNIQUE: Multiplanar and multisequence MR images of the brain were obtained without and with intravenous contrast. This report was created using [employer] technology. CONTRAST: IV 10ml Dotarem COMPARISON: 08.11.19 FINDINGS: BRAIN AND EXTRA-AXIAL SPACES: Unremarkable. No intra- or extra-axial hemorrhage. No evidence of acute infarct. No intracranial mass or mass effect. There is preservation of the klein/white matter interface. Posterior fossa structures are unremarkable. Ventricles are appropriate for age. No hydrocephalus. Basal cisterns are patent. SELLA: The pituitary gland on sagittal image at the level of the infundibulum measures cranial caudal 0.56cm in anterior posterior 1.1cm and previously measuring .6 cm x 1.2 cm with stable appearance. AUDITORY SYSTEM: Unremarkable. The internal auditory canals are patent. BONES/JOINTS: Unremarkable. No discrete lytic or blastic abnormalities. SINUSES: Unremarkable as visualized. Clear. MASTOID AIR CELLS: Unremarkable as visualized. Clear. ORBITS: Unremarkable as visualized. Both globes, extraocular muscles, optic nerves and retrobulbar fat appear unremarkable. VASCULATURE: Unremarkable as visualized. Normal flow voids in the major intracranial circulation. MRI/Brain W/WO Contrast IMPRESSION: Overall stable size of the pituitary gland. This is allowing for systems operator dependent variations in measurements. Electronically Signed: Hank Saucedo MD at 18:21 EDT Reading Location ID and State: [facility] / [place] , Service support ,
== END | disposition home or self-care (01) ==
LOC: MRI 16:58
PROVIDERS: PCP Internal Medicine; Visit Provider Internal Medicine Endocrinology, Diabetes & Metabolism
DX: D35.2 Benign neoplasm of pituitary gland (principal)
CPT/HCPCS: 70553; A9575

== ENCOUNTER → 2022-07-20 | Outpatient (CLI) | payer OTHER, SELFPAY ==
[2022-07-27 18:07] LABS: Clam <0.10 kU/L (Class 0); Codfish <0.10 kU/L (Class 0); Corn <0.10 kU/L (Class 0); Egg, White <0.10 kU/L (Class 0); Gluten <0.10 kU/L (Class 0); Milk (Cow) <0.10 kU/L (Class 0); Peanut <0.10 kU/L (Class 0); SCALLOP <0.10 kU/L (Class 0); SESAME SEED <0.10 kU/L (Class 0); Shrimp <0.10 kU/L (Class 0); Soybean <0.10 kU/L (Class 0); Walnut, (Food) <0.10 kU/L (Class 0); Wheat <0.10 kU/L (Class 0)
[2022-07-28 16:47] LABS: Yeast <0.10 kU/L (Class 0)
== END | disposition home or self-care (01) ==
PROVIDERS: PCP Internal Medicine; Referring Provider Otolaryngology Otolaryngology/Facial Plastic Surgery; Visit Provider Otolaryngology Otolaryngology/Facial Plastic Surgery
DX: T78.40XA Allergy, unspecified, initial encounter (principal)
CPT/HCPCS: 36415; 86003

== ENCOUNTER → 2022-12-03 | Outpatient (CLI) | payer OTHER, SELFPAY ==
--- NOTE | 2022-12-03 12:49 | ECHOD_ITS ---
Version 2 Reason For Study: FATIGUE Procedure This was a 2D Doppler, Color Flow transthoracic echocardiogram. Exam performed in department. Left Ventricle Normal LV size. Left ventricular systolic function is normal. The estimated ejection fraction is 60 %. Normal diastology for age. No regional wall motion abnormalities noted. Right Ventricle Normal RV size. Normal systolic function. Atria Normal left atrium. Normal right atrium. Mitral Valve Normal mitral valve. Tricuspid Valve Normal tricuspid valve. Trivial tricuspid valve insufficiency. Aortic Valve Normal aortic valve. Pulmonic Valve Normal pulmonic valve. Great Vessels Normal aortic root. The pulmonary artery is normal size. Normal inferior vena cava. Pericardium/Pleural No pericardial effusion. MMode/2D Measurements & Calculations LVIDd: 4.6 cm IVSd: 0.50 cm Ao root diam: 2.9 cm LVIDs: 3.0 cm LVPWd: 0.64 cm RVDd: 3.3 cm FS: 33.5 % LAV(MOD-bp): 26.1 ml LVAd ap4: 24.3 cm2 SV(MOD-sp4): 44.5 ml LAV(MOD-bp) Indexed: 18.0 ml/m2 LVLd ap4: 6.7 cm LAV(MOD-sp2): 20.7 ml EDV(MOD-sp4): 72.3 ml LAV(MOD-sp4): 25.5 ml EDV(sp4-el): 74.0 ml LVAs ap4: 13.3 cm2 LVLs ap4: 5.3 cm ESV(MOD-sp4): 27.8 ml ESV(sp4-el): 28.2 ml EF(MOD-sp4): 61.6 % EF(sp4-el): 61.9 % SV(sp4-el): 45.8 ml LA A4 area: 12.7 cm2 LA dimension(2D): 2.8 cm RA A4 area: 11.8 cm2 Time Measurements MV dec time: 0.25 sec Doppler Measurements & Calculations MV E max nick: 72.4 cm/sec Lat Peak E' Nick: 18.6 cm/sec Med Peak E' Nick: 14.2 cm/sec MV A max nick: 49.1 cm/sec E/E' lat: 3.9 E/E' med: 5.1 MV E/A: 1.5 Ao V2 max: 129.4 cm/sec LV V1 max: 117.9 cm/sec PA V2 max: 93.1 cm/sec Ao max P.7 mmHg LV V1 max P.6 mmHg TR max nick: 177.2 cm/sec TR max P.6 mmHg ECHO/Echo Complete Interpretation Summary Normal LV size. Left ventricular systolic function is normal. The estimated ejection fraction is 60 %. Trivial tricuspid valve insufficiency. Structurally normal valves. Ordering Physician: Marilu Samayoa Referring Physician: MARILU SAMAYOA Performed By: Dionne Cote RDCS
== END | disposition home or self-care (01) ==
PROVIDERS: PCP Internal Medicine; Visit Provider Internal Medicine
DX: R53.83 Other fatigue (principal); R00.0 Tachycardia, unspecified
CPT/HCPCS: 93225; 93226; 93306

== ENCOUNTER 2023-06-28 02:41 | Observation (INO) | payer OTHER, SELFPAY ==
[2023-06-28] VITALS (11 sets, daily range): BP systolic 91–135; BP diastolic 58–94; PULSE 54–96; RESP 16–17; TEMP 36.4–36.9; O2SAT 97–100; BMI 22.1; BMI 22.4
--- NOTE | 2023-06-28 | APP_PTH ---
PATIENT: NAM MELGOZA LOC: MS3 U#:[id number] AGE/SX: 42/F [place] [facility] [place]/28/[address]: Dr. Juan Hunt MD : 1980 BED: 1 DIS: 06/28/2023 SPEC #: [id number] RECD: 06/28/23 14:20 STATUS: BOGDAN NEELY #: [id number] SANTIAGO: 06/28/23 00:[address]: Juan Hunt DEPT: SURGICAL PATHOLOGY RECD BY: Erna Hayes ENTERED: 06/29/23 08:34 SP TYPE: APPENDIX OTHR DR: Dr. Hoda Aleman DO Tissues: Appendix, NOS Procedures: Surgery Specimen Level III HEADER OPERATION: Laparoscopic appendectomy PRE-OP DIAGNOSIS: Acute appendicitis TISSUE SUBMITTED: Appendix MICROSCOPIC DIAGNOSIS Appendix, appendectomy: Acute appendicitis and periappendicitis. LARISA:lindy 06/30/2023 MICROSCOPIC DESCRIPTION Slides are reviewed. GROSS DESCRIPTION Received in fixative is one container labeled with the patient's name and designated appendix. The specimen consists of an appendix measuring 5.5 cm in length and up to 1.5 cm in diameter. The attached periappendiceal adipose tissue measures up to 1.5 cm in width. The serosa is covered with klein, purulent exudate. No obvious perforation is identified. The mucosa is congested. No fecalith is identified. Loading Unit Tool Setter sections are submitted in one cassette. / SJ:lindy 06/29/2023 TC:2 CPT: 41074
--- NOTE | 2023-06-28 02:58 | CT_ITS ---
EXAM: CT ABDOMEN AND PELVIS WITH INTRAVENOUS CONTRAST CLINICAL INDICATION: abd pain TECHNIQUE: Helically acquired images were obtained of the abdomen and pelvis with intravenous contrast. This CT exam was performed using one or more of the following dose reduction techniques: automated exposure control, adjustment of the mA and/or kV according to patient size, and/or use of iterative reconstruction technique. CONTRAST: 100 cc of Isovue-370 IV. RADIATION DOSE: CTDIvol = 8.86 mGy, DLP = 375.13 mGy-cm COMPARISON: 12/19/2019. FINDINGS: LOWER THORAX: Unremarkable. Lung bases are clear. No cardiomegaly. No significant pericardial effusion. ABDOMEN: LIVER: Unremarkable. Homogeneous. No focal mass. GALLBLADDER AND BILE DUCTS: Unremarkable. No calcified gallstones. No gallbladder distention or wall edema. No intra- or extrahepatic biliary ductal dilation. PANCREAS: Unremarkable. No focal cystic or solid mass. SPLEEN: Unremarkable. Normal size without focal cystic or solid mass. ADRENALS: Unremarkable. No nodules. KIDNEYS AND URETERS: Unremarkable. Normal renal size and position. No hydronephrosis. STOMACH AND BOWEL: Unremarkable. No stomach or bowel distention. No focal inflammatory change. PELVIS: APPENDIX: The appendix measures 1.4 cm in diameter with mild surrounding inflammatory changes and there is an appendicolith in the proximal lumen of the appendix. BLADDER: Unremarkable. REPRODUCTIVE: Follicle measuring 1.7 cm left ovary. No change in large nabothian cyst in the cervix. ABDOMEN and PELVIS: INTRAPERITONEAL SPACE: Trace low-density free fluid in the pelvis. No free air. BONES/JOINTS: Unremarkable. No suspicious lytic or blastic abnormality. SOFT TISSUES: Unremarkable. No discrete abdominal or pelvic wall hernia. VASCULATURE: Unremarkable. Abdominal aorta is non-dilated. LYMPH NODES: Unremarkable. No enlarged lymph nodes. CT/Abdomen/Pelvis W IV Cont ONLY IMPRESSION: 1. Acute appendicitis. 2. No change in large nabothian cyst in the cervix. 3. Trace low-density free fluid in the pelvis. 4. Follicle measuring 1.7 cm left ovary. Electronically Signed: Juan Early MD at 5:17 EDT ,
[2023-06-28 03:10] LABS: Absolute Lymphocyte Count 1.86 X10^3/uL (0.83-4.51); Absolute Neutrophil Count 12.8 X10^3/uL (2.0-7.7); Basophil# 0.05 X10^3/uL; Basophil% 0.3 % (0-1); Eosinophils% 0.6 % (0-5); Hematocrit 40.2 % (37-47); Hemoglobin 13.6 g/dL (12.0-15.0); Lymphocyte # 1.86 X10^3/ul (0.83-4.51); Lymphocyte % 11.5 % (19-41); Mean Corp Hgb Conc 33.8 g/dL (32-36); Mean Corpuscular Hgb 32.3 pg (27.0-32.0); Mean Corpuscular Volume 95.5 fL (81-99); Mean Platelet Vol. 10.2 fl (6.2-12.0); Monocyte# 1.24 X10^3/uL; Monocyte% 7.7 % (0-10); NRBC Flagged by Analyzer 0 % (0-5); Neutrophil # 12.81 X10^3/uL (2.7-7.7); Neutrophil % 79.5 % (47-70); Platelet Count 333 K/mm3 (150-450); RBC Distribution Width SD 42.3 fl (35.1-43.9); Red Blood Count 4.21 M/mm3 (4.2-5.4); White Blood Count 16.1 K/mm3 (4.4-11.0)
[2023-06-28 03:27] LABS: AST(SGOT) 15 U/L (15-37); Alanine Aminotransfer ALT/SGPT 20 U/L (13-56); Albumin, Serum 3.7 g/dL (3.2-5.0); Alkaline Phosphatase 71 U/L (45-117); Anion Gap 6 (5-15); BUN 9 mg/dL (7-18); BUN/Creat Ratio 9.5 RATIO (10-20); Bilirubin, Direct 0.13 mg/dL (0.00-0.30); Calcium,Total 8.8 mg/dL (8.5-10.1); Chloride 107 mmol/L (98-107); Creatinine, Serum 0.95 mg/dL (0.55-1.02); EST Glomerular Filtration Rate 69 mL/min (>60); Est Glom Filt Rate - Afr Amer 84 mL/min (>60); Estimated Creatinine Clearance 56.54 ml/min; Globulin 3.4 g/dL (2.2-4.2); Glucose 123 mg/dL (74-106); Lipase 31 U/L (13-75); Potassium 3.6 mmol/L (3.5-5.1); Protein, Total 7.1 g/dL (6.4-8.2); Sodium Level 139 mmol/L (136-145)
[2023-06-28] MEDS: 0.9% Normal Saline 1,000 ML 999 ML IV (03:38)
[2023-06-28] MEDS: Ondansetron 4 MG/2 ML Vial IV ×2 (03:38→05:14)
[2023-06-28 04:03] LABS: Bacteria 0 SEEN /hpf (None Seen); Mucous, Urine 0 SEEN /hpf (<or=2+); Red Blood Cells-Urine 0 SEEN /hpf (0-5)
[2023-06-28 04:04] LABS: Color, Urine Yellow (Yellow); Glucose, Dipstick Normal (Normal); Ketone-Dipstick Negative (Negative); Leukocyte Esterase-Dipstick 25 /ul (Negative); Nitrite-Dipstick Negative (Negative); Occult Blood-Urine Negative /ul (Negative); Protein-Dipstick Negative (Negative); Urine Bilirubin Dipstick Negative (Negative); Urine Clarity Clear (Clear); Urine Urobilinogen Normal (Normal)
[2023-06-28 04:22] LABS: Internal QC Validated? YES +Cl - CLEAR BKGD; Pregnancy, Urine Negative Negative; Squamous Epithelial Cells - UA 0-5 SEEN /hpf (5-10); White Blood Cells 0 SEEN /hpf (0-5)
[2023-06-28] MEDS: Ketorolac 30 MG/ML Syringe IV (04:28)
--- NOTE | 2023-06-28 05:50 | EDS_ITS ---
HPI History of Present Illness Chief Complaint: Abd Pain Informant: patient Narrative Narrative: Patient is a 42-year-old female with past medical history of 2 sections with the most recent being 4 years ago. She states that over the past 24 hours she has had abdominal pain with nausea. She states that the pain has increased and is located mainly on the right side. She states she has a history of ovarian cyst and has concern for this. She denies any vomiting or diarrhea or dysuria associated with the symptoms. However based on the progressive pain she presents for evaluation [facility] Medical History Anxiety Non-smoker Home Medications fluoxetine 10 mg capsule 10 mg PO DAILY 12/19/19 [History Last Taken Unknown] Allergy/AdvReac Type Severity Reaction Status Date / Time No Known Allergies Allergy Verified 06/28/23 02:50 Family History Sister Thyroid disorder Diabetes Mother Thyroid disorder Surgical History S/P section S/P D&C (status post dilation and curettage) S/P tonsillectomy Social History (Updated 05/11/21 @ 16:[address] Ilir Jackson MD) household members: children Smoking Status: Never smoker alcohol intake: current alcohol intake frequency: holidays/special occasions only substance use type: does not use ROS ROS ED Constitutional Constitutional ED: Denies chills or fever(s) ENT ENT ED: Denies sore throat Cardiovascular Cardiovascular: Denies chest pain Respiratory/Chest Respiratory/Chest: Denies cough or dyspnea Gastrointestinal Gastrointestinal: Reports abdominal pain and nausea; Denies diarrhea or vomiting Genitourinary Genitourinary ED: Denies dysuria Musculoskeletal Musculoskeletal: Denies myalgias Integumentary Denies rash Neurologic Neurologic: Denies headache(s) Hematologic/Lymphatic Hematologic/Lymphatic: Denies easy bleeding or easy bruising EXAM Physical Exam Const Vital Signs: 06/28/23 02:42 06/28/23 02:42 Temperature 98.2 F 98.2 F Temperature Source Temporal Temporal Pulse Rate 65 65 Respiratory Rate 16 16 Blood Pressure 135/75 H 135/75 H Blood Pressure Mean 95 95 Pulse Ox 100 100 Oxygen Delivery Method Room Air Room Air Positive well nourished and well developed General Appearance ED: well developed HEENT HEENT Narrative: Normocephalic atraumatic Eyes PERRL and EOMs intact bilaterally General Eye ED: Negative for scleral icterus Neck supple Resp normal respiratory effort and clear to auscultation bilaterally Cardio regular rate and regular rhythm Rate: other Other Details: Radial and carotid pulses are equal and symmetric GI non-distended GI Narrative: Abdomen is soft and nondistended with normal active bowel sounds. There is mild pain with palpation in the right upper quadrant as well as the right lower quad rant. However there is voluntary guarding noted in the right lower quadrant. No rebound noted. Positive heel strike. Auscultation: normoactive bowel sounds Palpation: soft Back/Spine Back/Spine Narrative: Mild right CVA pain noted Extremity normal to inspection Neuro oriented x3, CN's II-XII intact bilaterally and no sensory deficits noted Sensorium / Orientation: alert Motor Exam: strength 5/5 throughout Psych mental status grossly normal Skin no rashes or lesions noted General Skin Exam: Negative for jaundice MDM MDM MDM Narrative Medical decision making narrative: Patient presented to the ER with stable vitals but reported increasing pain along the right abdomen over the last 24 hours. Differential diagnosis is for pyelonephritis versus kidney stone versus ovarian cyst versus acute appendicitis versus biliary colic or pancreatitis. Basic labs were obtained which revealed an elevated white count of 16.1 but otherwise no clinically significant findings. A CT scan was obtained based on the patient's increasing pain and does show changes consistent with acute appendicitis. Patient was started on Zosyn secondary to this. General surgery was contacted. They will evaluate the patient in the ER to discuss next phase of treatment options. General surgery evaluated the patient in the ER and feel she would be best treated with surgical removal of her appendix. Therefore patient will be admitted to the hospital to the general surgery service to undergo this. History & Record Review Discussion w/independent historian: Patient Lab Data Attestation: I reviewed the patient's lab results. Labs: Laboratory Results - last 24 hr 06/28/23 06/28/23 02:50 03:55 WBC 16.1 H RBC 4.21 Hgb 13.6 Hct 40.2 MCV 95.5 MCH 32.3 H MCHC 33.8 RDW Std Deviation 42.3 RDW Coeff of Andrés 12.0 Plt Count 333 MPV 10.2 Immature Gran % (Auto) 0.400 Neut % (Auto) 79.5 H Lymph % (Auto) 11.5 L [place] % (Auto) 7.7 Eos % (Auto) 0.6 Baso % (Auto) 0.3 Absolute Neuts (auto) 12.8 H Absolute Lymphs (auto) 1.86 Nucleated RBC % 0 Sodium 139 Potassium 3.6 Chloride 107 Carbon Dioxide 26.0 Anion Gap 6 BUN 9 Creatinine 0.95 Estim Creat Clear Calc 56.54 Est GFR (MDRD) Af Amer 84 Est GFR (MDRD) Non-Af 69 BUN/Creatinine Ratio 9.5 L Glucose 123 H Calcium 8.8 Total Bilirubin 0.50 Direct Bilirubin 0.13 AST 15 ALT 20 Alkaline Phosphatase 71 Total Protein 7.1 Albumin 3.7 Globulin 3.4 Lipase 31 Urine Color Yellow Urine Clarity Clear Urine pH 7.0 Ur Specific [place] 1.010 Urine Protein Negative Urine Glucose (UA) Normal Urine Ketones Negative Urine Occult Blood Negative Urine Nitrite Negative Urine Bilirubin Negative Urine Urobilinogen Normal Ur Leukocyte Esterase 25 H Urine RBC 0 SEEN Urine WBC 0 SEEN Ur Squamous Epith Cells 0-5 SEEN Urine Bacteria 0 SEEN Urine Mucus 0 SEEN Urine Test Negative Radiography Diagnostic Testing: Clinical Impression(s) from Imaging Studies Abdomen/Pelvis CT 06/28/23 02:58 IMPRESSION: 1. Acute appendicitis. 2. No change in large nabothian cyst in the cervix. 3. Trace low-density free fluid in the pelvis. 4. Follicle measuring 1.7 cm left ovary. Electronically Signed: Juan Early MD at 5:17 EDT , Management Discussion w/another healthcare provider: Clinical Documentation Specialist Discharge Plan Dx/Rx/DC Orders Clinical Impression: Acute appendicitis Disposition Disposition: Acute Care Hospital [facility]
[2023-06-28] MEDS: Morphine 4 MG/ML Syringe IV (06:18)
--- NOTE | 2023-06-28 06:37 | PCM.HP.STD ---
HPI - General General Date of Admission: 06/28/23 Date of Service: 06/28/23 Chief Complaint: Acute onset abdominal pain HPI Narrative NAM ZUNIGA, is a 42 F who presents to [facility] with complaints of acute onset abdominal pain beginning approximately 24 hours ago. She notes that the pain has been associate with nausea but no vomiting. She has not recorded any fevers at home. She reports that her bowel function has remained normal. She denies any previous experience of this pain. ER work-up notable for laboratories that show a leukocytosis of 16,000. Further, patient has CT of the abdomen pelvis with IV contrast demonstrating a 1.4 cm dilated appendix with an appendicolith. Patient has history of 2 prior C-sections, but otherwise no additional abdominal surgery. She has no history of anesthetic complications. [facility] Medical History Anxiety Non-smoker Home Medications fluoxetine 10 mg capsule 10 mg PO DAILY 12/19/19 [History Last Taken Unknown] Allergy/AdvReac Type Severity Reaction Status Date / Time No Known Allergies Allergy Verified 06/28/23 02:50 Family History Sister Thyroid disorder Diabetes Mother Thyroid disorder Surgical History S/P section S/P D&C (status post dilation and curettage) S/P tonsillectomy Social History (Updated 05/11/21 @ 16:[address] Ilir Jackson MD) household members: children Smoking Status: Never smoker alcohol intake: current alcohol intake frequency: holidays/special occasions only substance use type: does not use ROS Constitutional Constitutional: Denies fever(s) or night sweats Gastrointestinal Gastrointestinal: Reports abdominal pain and nausea; Denies constipation, diarrhea or vomiting Vital Signs Vital Signs Vital Signs: 06/28/23 02:42 06/28/23 02:42 Temperature 98.2 F 98.2 F Temperature Source Temporal Temporal Pulse Rate 65 65 Respiratory Rate 16 16 Blood Pressure 135/75 H 135/75 H Blood Pressure Mean 95 95 Pulse Ox 100 100 Oxygen Delivery Method Room Air Room Air Weight Weight: 113 lb 5.082 oz Body Mass Index (BMI) 22.1 Physical Exam Const alert and oriented x3 Constitutional Narrative: Mild distress with abdominal discomfort General Appearance: cooperative Resp normal respiratory effort GI GI Narrative: Nondistended, soft, no scars, negative Rovsing's, positive tenderness to palpation over McBurney's point, negative obturator, negative psoas Results Lab / Micro Data 06/28/23 02:50 06/28/23 02:50 Labs: Laboratory Results - last 24 hr 06/28/23 02:50: WBC 16.1 H, RBC 4.21, Hgb 13.6, Hct 40.2, MCV 95.5, MCH 32.3 H, MCHC 33.8, RDW Std Deviation 42.3, RDW Coeff of Andrés 12.0, Plt Count 333, MPV 10.2, Immature Gran % (Auto) 0.400, Neut % (Auto) 79.5 H, Lymph % (Auto) 11.5 L, [place] % (Auto) 7.7, Eos % (Auto) 0.6, Baso % (Auto) 0.3, Absolute Neuts (auto) 12.8 H, Absolute Lymphs (auto) 1.86, Nucleated RBC % 0, Sodium 139, Potassium 3.6, Chloride 107, Carbon Dioxide 26.0, Anion Gap 6, BUN 9, Creatinine 0.95, Estim Creat Clear Calc 56.54, Est GFR (MDRD) Af Amer 84, Est GFR (MDRD) Non-Af 69, BUN/Creatinine Ratio 9.5 L, Glucose 123 H, Calcium 8.8, Total Bilirubin 0.50, Direct Bilirubin 0.13, AST 15, ALT 20, Alkaline Phosphatase 71, Total Protein 7.1, Albumin 3.7, Globulin 3.4, Lipase 31 06/28/23 03:55: Urine Color Yellow, Urine Clarity Clear, Urine pH 7.0, Ur Specific [place] 1.010, Urine Protein Negative, Urine Glucose (UA) Normal, Urine Ketones Negative, Urine Occult Blood Negative, Urine Nitrite Negative, Urine Bilirubin Negative, Urine Urobilinogen Normal, Ur Leukocyte Esterase 25 H, Urine RBC 0 SEEN, Urine WBC 0 SEEN, Ur Squamous Epith Cells 0-5 SEEN, Urine Bacteria 0 SEEN, Urine Mucus 0 SEEN, Urine Test Negative Radiology Impression Abdomen/Pelvis CT 06/28/23 02:58 IMPRESSION: 1. Acute appendicitis. 2. No change in large nabothian cyst in the cervix. 3. Trace low-density free fluid in the pelvis. 4. Follicle measuring 1.7 cm left ovary. Electronically Signed: Juan Early MD at 5:17 EDT , Assessment & Plan Assessment/Plan (1) Acute appendicitis: PLAN: This is a 42-year-old, otherwise healthy, female who presents with signs and symptoms of acute appendicitis. Diagnosis confirmed with CT imaging and later with physical exam. Discussed the management of acute appendicitis as including antibiotics and appendectomy. Suggested strong recommendation for appendectomy in patient's case given the existence of an appendicolith. Patient expresses understanding of this information and a willingness to proceed as described. Post procedure expectations and limitations were then reviewed. Patient states that she is in agreement. Mrs. Zuniga will be admitted to observation status and taken to the operating room later today. Charges/Coding Visit Charges Inpatient E&M: 44760 Init Hosp L2
[2023-06-28] MEDS: 0.9% Normal Saline 1,000 ML 125 ML IV ×2 (08:20→13:09)
[2023-06-28] MEDS: HYDROmorphone 0.5 MG/0.5 ML SYRINGE IV (08:43)
[2023-06-28] MEDS: Cefazolin 2 GM in 0.9% Normal Saline 100 ML IV (10:48)
[2023-06-28] MEDS: Bupivacaine Mpf 0.5% 30 ML VIAL (11:43)
--- NOTE | 2023-06-28 11:54 | OP.PCM_ITS ---
Report of Operation Date of Procedure: 06/28/23 Pre-Operative Diagnosis: Acute appendicitis with appendicolith Post-Operative Diagnosis: Acute, uncomplicated appendicitis Surgery/Procedure Performed:: Laparoscopic appendectomy Description of Surgical Findings:: ? Acutely inflamed appendix with inflammatory exudate but no evidence of perforation Surgeon: Juan Hunt Type of Anesthesia: General/Supplemental Anesthesiologist: Dario Herrmann Specimen's removed: Appendix Estimated Blood Loss (mL): 10 Description of Procedure: After appropriate identification in the preoperative holding area, the patient was brought to the operating room and placed supine on the operating room table. Antibiotics had been preoperatively administered. Patient was then induced with general endotracheal anesthetic. The abdomen was prepped and draped in usual sterile fashion. Formal timeout was conducted to confirm both the patient and the procedure. A supraumbilical incision was made and carried down to the level of the fascia which was sharply opened. After opening the peritoneum in like fashion a finger sweep was made to confirm position, and a balloon trocar was placed and pneumoperitoneum was established to 15 mmHg. Patient was positioned in Trendelenburg with the left side down. 2 additional 5 mm trocars were placed in the left lower quadrant and suprapubic positions. The peritoneum was inspected and there were no signs of inadvertent injury from this Marquez ent ry. There was some simple fluid collected over the corpus of the uterus that did not appear to represent purulence. Then the appendix was visualized with moderately severe inflammation. Using blunt laparoscopic dissection, a window was made in the mesoappendix adjacent to the appendiceal base. Then the base of the appendix was sealed and amputated with the use of an Endo REGGIE stapler. The mesoappendix was divided with application of a laparoscopic harmonic. The appendix was placed in an Endo Catch bag. The staple line was inspected for hemostasis. After hemostasis was confirmed the appendix was removed from the umbilical port site. The immediate vicinity about the appendix was irrigated and the effluent was suctioned free of the peritoneum. Pneumoperitoneum was then evacuated and the supraumbilical port site fascia was closed with #1 Vicryl in a [id number] fashion. The port sites were infiltrated with 30 mL local anesthetic. The skin of each port site was closed with 4-0 Monocryl in a subcuticular fashion. Steri-Strips and OpSite dressings were applied. Patient tolerated procedure well without any apparent complications. They were awoken from general anesthetic without issue and transferred to post anesthesia care unit for ongoing recovery. Complications None Admit VTE Documentation VTE Mechan Device Prophylaxis: SCD's Procedures Digestive 40xxx-49xxx: 32954 Laparoscopy appendectomy
[2023-06-28] MEDS: Ibuprofen 400 MG Tablet PO (15:23)
--- NOTE | 2023-06-28 17:11 | DCINST_ITS ---
Discharge Instructions Diet Discharge Diet: No restrictions Activity Discharge Activity: May Not Drive (No driving while using narcotic pain medication) and May Shower (Postoperative day 1) May shower in (days): 2 Ice area for (Minutes): 20 Lifting Restrictions: No lifting greater than 15 pounds for 2 weeks after surgery Dressing / Incision Call your doctor if your incision/area has: Continuous Slow Oozing, Increased Pain/ Swelling, Increased Redness, Foul Smelling Discharge and Swelling at the incision site Call your doctor if you observe: Fever of 101 or Higher and Inability to urinate Remove Dressing in: 2 days (Please leave Steri-Strips intact until they fall off spontaneously or are taken off at your follow-up visit) Cleanse incision/area with: Soap & Water Follow Up Care Please Follow Up With: Juan Hunt MD When: 7-10days postop Test Results: Test results from this visit will be discussed in further detail at your follow- up appointment, if applicable. Discharge Plan Admission Admit Date/Time: 06/28/23 07:02 Primary Reason for Your Visit: Appendicitis Attending Provider: Juan Hunt Primary Care Provider: Hoda Aleman Instructions Forms: Work / School Excuse Discharge Orders/Prescriptions Prescriptions: New oxycodone 5 mg Tablet 5 mg PO Q6H PRN PRN (Reason: Pain Score 6-10) 3 Days Qty: 10 0RF Continued fluoxetine 10 MG capsule 10 mg PO DAILY Referrals / Follow Up: Hoda Aleman DO [Primary Care Provider] - Disposition Disposition (needs filled in before D/C Order can be placed): Home, Self Care
--- NOTE | 2023-06-28 17:19 | PCM.DC.SUM ---
Providers Date of Admission: 06/28/23 Primary Care Physician: Dr. Hoda Aleman DO Reason For Visit: APPENDICITIS Diagnosis Discharge Diagnosis (1) Acute appendicitis: Status: Acute Code(s): K35.80 - Unspecified acute appendicitis Plan: This is a 42-year-old, otherwise healthy, female who presents with signs and symptoms of acute appendicitis. Diagnosis confirmed with CT imaging and later with physical exam. Discussed the management of acute appendicitis as including antibiotics and appendectomy. Suggested strong recommendation for appendectomy in patient's case given the existence of an appendicolith. Patient expresses understanding of this information and a willingness to proceed as described. Post procedure expectations and limitations were then reviewed. Patient states that she is in agreement. Mrs. Zuniga will be admitted to observation status and taken to the operating room later today. Medications at Discharge Home Medications fluoxetine 10 mg capsule 10 mg PO DAILY 12/19/19 oxycodone 5 mg tablet 5 mg PO Q6H PRN PRN Pain Score 6-10 3 days #10 tabs 06/28/23 Hospital Course Operations appendectomy (Laparoscopic appendectomy 06/28/2023) Procedures None Summary of Care Provided Hospital Course: Patient is a 42-year-old female who presented with signs and symptoms of acute appendicitis early the morning of 06/28/2023. Given this diagnosis and the patient's clear evidence of an appendicolith, laparoscopic appendectomy was recommended. Patient readily excepted this recommendation and the patient was posted to the emergency surgery schedule. Patient underwent an uncomplicated laparoscopic appendectomy the same day and was found to have uncomplicated acute appendicitis. Post procedurally patient was evaluated on the floor and found to be doing well. She tolerated advancement to a liquid diet and then to a regular diet. She ambulated with ease with nursing and at this point declared that she was ready for discharge home despite some persistent soreness which she readily acknowledged would likely be present for the next couple of days given the recency of her surgery. She was reminded of her need for outpatient follow-up and then, at her request, discharged home was granted Physical Exam Const alert, oriented x3 and no apparent distress Resp normal respiratory effort GI GI Narrative: Operative dressings intact with minimal strikethrough to the outer bandages. Patient's abdomen is nondistended and soft. Weight / BMI Weight Weight: 115 lb Body Mass Index (BMI) 22.4 ABG / Lab / Microbiology Data 06/28/23 02:50 06/28/23 02:50 Laboratory: Laboratory Results - last 24 hr 06/28/23 02:50: WBC 16.1 H, RBC 4.21, Hgb 13.6, Hct 40.2, MCV 95.5, MCH 32.3 H, MCHC 33.8, RDW Std Deviation 42.3, RDW Coeff of Andrés 12.0, Plt Count 333, MPV 10.2, Immature Gran % (Auto) 0.400, Neut % (Auto) 79.5 H, Lymph % (Auto) 11.5 L, [place] % (Auto) 7.7, Eos % (Auto) 0.6, Baso % (Auto) 0.3, Absolute Neuts (auto) 12.8 H, Absolute Lymphs (auto) 1.86, Nucleated RBC % 0, Sodium 139, Potassium 3.6, Chloride 107, Carbon Dioxide 26.0, Anion Gap 6, BUN 9, Creatinine 0.95, Estim Creat Clear Calc 56.54, Est GFR (MDRD) Af Amer 84, Est GFR (MDRD) Non-Af 69, BUN/Creatinine Ratio 9.5 L, Glucose 123 H, Calcium 8.8, Total Bilirubin 0.50, Direct Bilirubin 0.13, AST 15, ALT 20, Alkaline Phosphatase 71, Total Protein 7.1, Albumin 3.7, Globulin 3.4, Lipase 31 06/28/23 03:55: Urine Color Yellow, Urine Clarity Clear, Urine pH 7.0, Ur Specific [place] 1.010, Urine Protein Negative, Urine Glucose (UA) Normal, Urine Ketones Negative, Urine Occult Blood Negative, Urine Nitrite Negative, Urine Bilirubin Negative, Urine Urobilinogen Normal, Ur Leukocyte Esterase 25 H, Urine RBC 0 SEEN, Urine WBC 0 SEEN, Ur Squamous Epith Cells 0-5 SEEN, Urine Bacteria 0 SEEN, Urine Mucus 0 SEEN, Urine Test Negative Radiography Diagnostic Testing: Radiology Impression Abdomen/Pelvis CT 06/28/23 02:58 IMPRESSION: 1. Acute appendicitis. 2. No change in large nabothian cyst in the cervix. 3. Trace low-density free fluid in the pelvis. 4. Follicle measuring 1.7 cm left ovary. Electronically Signed: Juan Early MD at 5:17 EDT , D/C Instructions Discharge Diet: No restrictions May shower in (days): 2 Ice area for (Minutes): 20 Call your doctor if your incision/area has: Continuous Slow Oozing, Increased Pain/ Swelling, Increased Redness, Foul Smelling Discharge and Swelling at the incision site Call your doctor if you observe: Fever of 101 or Higher and Inability to urinate Cleanse incision/area with: Soap & Water Please Follow Up With: Juan Hunt MD When: 7-10days postop Meaningful Use Info Meaningful Use Diagnoses (Choose all that apply): None applicable Discharge Plan Admission Admit Date/Time: 06/28/23 07:02 Primary Reason for Your Visit: Appendicitis Attending Provider: Juan Hunt Primary Care Provider: Hoda Aleman Instructions Forms: Work / School Excuse Discharge Orders/Prescriptions Prescriptions: New oxycodone 5 mg Tablet 5 mg PO Q6H PRN PRN (Reason: Pain Score 6-10) 3 Days Qty: 10 0RF Continued fluoxetine 10 MG capsule 10 mg PO DAILY Referrals / Follow Up: Hoda Aleman DO [Primary Care Provider] - Disposition Disposition (needs filled in before D/C Order can be placed): Home, Self Care
[2023-06-28] MEDS: oxyCODONE 5 MG Tablet PO (17:27)
== END 2023-06-28 17:35 | disposition home or self-care (01) ==
LOC: ED 05:54 → SDC 06:31 → ACINP 06:42 → MS3 07:25 → SDC 09:08 → MS3 09:08
PROVIDERS: Admitting Provider Surgery; Emergency Provider Emergency Medicine; PCP Internal Medicine; Visit Provider Surgery
PROC: 0DTJ4ZZ Resection of Appendix, Percutaneous Endoscopic Approach (ICD-10-PCS; CPT 44970; principal; 2023-06-28 10:10)
DX: K35.80 Unspecified acute appendicitis (principal); F41.9 Anxiety disorder, unspecified; Z79.899 Other long term (current) drug therapy
CPT/HCPCS: 44970; 00840; 74177; 80048; 80076; 81001; 81025; 83690; 85025; 88304; 96361; 96374; 96375; 96376; 99221; 99284; J7030; J7050; Q9967; A4216; G0378; J2405

== ENCOUNTER → 2023-08-29 | Outpatient (CLI) | payer OTHER, SELFPAY ==
[2023-08-29 17:39] LABS: Absolute Lymphocyte Count 2.32 X10^3/uL (0.83-4.51); Absolute Neutrophil Count 3.5 X10^3/uL (2.0-7.7); Basophil# 0.05 X10^3/uL; Basophil% 0.8 % (0-1); Eosinophil# 0.09 X10^3/uL; Eosinophils% 1.4 % (0-5); Hematocrit 37.3 % (37-47); Hemoglobin 12.3 g/dL (12.0-15.0); Lymphocyte # 2.32 X10^3/ul (0.83-4.51); Lymphocyte % 35.9 % (19-41); Mean Corpuscular Hgb 31.9 pg (27.0-32.0); Mean Corpuscular Volume 96.9 fL (81-99); Mean Platelet Vol. 10.6 fl (6.2-12.0); Monocyte# 0.55 X10^3/uL; Monocyte% 8.5 % (0-10); NRBC Flagged by Analyzer 0 % (0-5); Neutrophil # 3.45 X10^3/uL (2.7-7.7); Neutrophil % 53.2 % (47-70); Platelet Count 316 K/mm3 (150-450); RBC Distribution Width CV 12.6 % (11.6-14.6); RBC Distribution Width SD 44.4 fl (35.1-43.9); Red Blood Count 3.85 M/mm3 (4.2-5.4); White Blood Count 6.5 K/mm3 (4.4-11.0)
[2023-08-29 17:51] LABS: D-Dimer Quantitative (DVT/PE) < 0.27 FEU/ug/m (0.27-0.49); Vitamin B12 584 pg/mL (211-911)
[2023-08-29 18:06] LABS: Erythrocyte Sedimentation Rate < 1 mm/hr (0-30)
[2023-08-29 19:10] LABS: ALB/GLOB Ratio 1.1 RATIO (0.9-2.4); AST(SGOT) 16 U/L (15-37); Alanine Aminotransfer ALT/SGPT 24 U/L (13-56); Albumin, Serum 3.7 g/dL (3.2-5.0); Alkaline Phosphatase 65 U/L (45-117); Anion Gap 5 (5-15); BUN 11 mg/dL (7-18); CRP < 2.90 mg/L (0.0-3.0); Calcium,Total 8.3 mg/dL (8.5-10.1); Chloride 106 mmol/L (98-107); Creatinine, Serum 0.73 mg/dL (0.55-1.02); EST Glomerular Filtration Rate 93 mL/min (>60); Est Glom Filt Rate - Afr Amer 112 mL/min (>60); Globulin 3.3 g/dL (2.2-4.2); Glucose 85 mg/dL (74-106); Potassium 3.7 mmol/L (3.5-5.1); Sodium Level 138 mmol/L (136-145); Thyroid Stim Hormone (TSH) 1.51 uIU/mL (0.358-3.74)
== END | disposition home or self-care (01) ==
PROVIDERS: PCP Internal Medicine; Referring Provider Internal Medicine; Visit Provider Internal Medicine
DX: R06.02 Shortness of breath (principal); R53.83 Other fatigue
CPT/HCPCS: 36415; 80053; 82607; 82746; 84443; 85025; 85379; 85652; 86140

== ENCOUNTER → 2024-10-23 | Outpatient (CLI) | payer BC, OTHER, SELFPAY ==
--- NOTE | 2024-10-23 07:24 | MRI_ITS ---
STUDY: MRI BRAIN WITH AND WITHOUT CONTRAST (ATTENTION PITUITARY GLAND) REASON FOR EXAM: Female, 44 years old. MRI brain w T w/o - follow up on pituitary macroadenoma and hea -- MRI brain w T w/o - follow up on pituitary macroadenoma and hea -- MRI brain w T w/o - follow up on pituitary macroadenoma and hea TECHNIQUE: Standardized multiplanar fat and water weighted pulse sequences were obtained. IV 10ml clariscan was administered for the contrast portion of the examination. COMPARISON: 04/06/2022 FINDINGS: Normal size of the pituitary gland for the patient?s age and gender. Normal enhancement of the pituitary gland, without a demonstrated intrapituitary lesion. Normal infundibular stalk and suprasellar cistern. Normal optic chiasm and hypothalamus. Normal size of the ventricles and extra-axial spaces for the patient''s age. Normal white matter tracts of the supratentorial brain. There is no evidence for recent intracranial ischemia or other cause of cytotoxic edema on diffusion weighted imaging (DWI). Normal T2* images of the brain without demonstrated susceptibility artifact. There is no demonstrated hemosiderin stain. Normal bilateral basal ganglia. Normal thalami. Normal flow voids within the major intracranial circulation suggesting patency by spin echo criteria. Normal venous enhancement. There is no enhancing intra-axial or extra-axial abnormality. There is no extra-axial fluid accumulation. Normal tectal plate and pineal gland. Normal midbrain, aneesh and medulla. Normal cerebellum. Normal basal cisterns. Normal bilateral temporal bones. Normal bilateral internal auditory canals. No demonstrated orbital abnormality, within the constraints of a routine brain study. Normal visualized paranasal sinuses. Normal calvarium and skull base. Normal visualized upper cervical spine. Normal visualized soft tissue structures. MRI/Brain W/WO Contrast IMPRESSION: Normal unenhanced and enhanced MRI of the pituitary gland. Electronically Signed: Jean Ocasio MD at 21:47 EST ,
== END | disposition home or self-care (01) ==
LOC: MRI 07:22
PROVIDERS: PCP Internal Medicine; Referring Provider Internal Medicine; Visit Provider Internal Medicine
DX: D35.2 Benign neoplasm of pituitary gland (principal)
CPT/HCPCS: 70553; A9575

== ENCOUNTER → 2025-01-09 | Outpatient (CLI) | payer BC, SELFPAY | END | disposition home or self-care (01) | LOC: PSN 07:12 | PROVIDERS: PCP Internal Medicine; Referring Provider Internal Medicine; Visit Provider Internal Medicine | DX: R42 Dizziness and giddiness (principal) | CPT/HCPCS: 93225; 93226 ==